=== PATIENT | female | born 1985 | race Caucasian/White ===

== ENCOUNTER 2021-03-05 10:06 | Outpatient (CLI) | payer MEDICAID, SELFPAY ==
[2021-03-05 10:24] VITALS: BP 124/73; PULSE 81; RESP 16; TEMP 37.1; O2SAT 99; BMI 34.3
[2021-03-05] MEDS: 0.9% Saline Lock 10 ML Syringe IV (10:26)
[2021-03-05 10:58] VITALS: BP 106/68; PULSE 67; RESP 16; TEMP 37.1; O2SAT 98
[2021-03-05 12:04] VITALS: BP 112/73; PULSE 71; RESP 16; TEMP 36.9; O2SAT 97
== END 2021-03-05 23:59 | disposition home or self-care (01) ==
LOC: MS3OUT 10:06 → MS3 10:07
PROVIDERS: PCP Family Medicine; Referring Provider Nurse Practitioner Adult Health; Visit Provider Nurse Practitioner Adult Health
DX: Z23 Encounter for immunization (principal); U07.1 COVID-19
CPT/HCPCS: J7050; M0245; Q0245; A4216

== ENCOUNTER 2021-10-27 20:52 | Outpatient (RCR) | payer OTHER, MEDICAID, SELFPAY | END 2021-11-11 23:59 | LOC: LABSPEC 20:52 | PROVIDERS: PCP Family Medicine; Visit Provider Family Medicine Geriatric Medicine | DX: Z20.822 Contact with and (suspected) exposure to COVID-19 (principal) | CPT/HCPCS: 87811 ==

== ENCOUNTER → 2021-12-13 | Outpatient (CLI) | payer OTHER, SELFPAY ==
[2021-12-13 08:47] LABS: Vitamin D,25 Hydroxy 21.3 ng/mL
[2021-12-13 09:21] LABS: ALB/GLOB Ratio 1.1 RATIO (0.9-2.4); AST(SGOT) 10 U/L (15-37); Alanine Aminotransfer ALT/SGPT 22 U/L (13-56); Albumin, Serum 3.6 g/dL (3.2-5.0); Alkaline Phosphatase 29 U/L (45-117); Anion Gap 4 (5-15); BUN 11 mg/dL (7-18); BUN/Creat Ratio 19.5 RATIO (10-20); Calcium,Total 8.7 mg/dL (8.5-10.1); Chloride 105 mmol/L (98-107); Cholesterol 226 mg/dL (200); Creatinine, Serum 0.56 mg/dL (0.55-1.02); EST Glomerular Filtration Rate 129 mL/min (>60); Est Glom Filt Rate - Afr Amer 156 mL/min (>60); Globulin 3.3 g/dL (2.2-4.2); Glucose 89 mg/dL (74-106); High Density Lipoprotein 49 mg/dL; Potassium 4.7 mmol/L (3.5-5.1); Protein, Total 6.9 g/dL (6.4-8.2); Sodium Level 137 mmol/L (136-145); Thyroid Stim Hormone (TSH) 5.78 uIU/mL (0.358-3.74); Triglycerides 194 mg/dL; Very Low Density Lipoprotein 39 mg/dL (5-40)
== END | disposition home or self-care (01) ==
PROVIDERS: PCP Nurse Practitioner Family; Referring Provider Nurse Practitioner Family; Visit Provider Nurse Practitioner Family
DX: Z00.00 Encounter for general adult medical examination without abnormal findings (principal); Z13.1 Encounter for screening for diabetes mellitus; Z13.6 Encounter for screening for cardiovascular disorders; E04.9 Nontoxic goiter, unspecified; E55.9 Vitamin D deficiency, unspecified
CPT/HCPCS: 36415; 80053; 80061; 82306; 84443

== ENCOUNTER → 2022-12-11 | Outpatient (CLI) | payer OTHER, SELFPAY ==
[2022-12-11 08:52] LABS: Thyroid Stim Hormone (TSH) 1.47 uIU/mL (0.358-3.74)
[2022-12-11 10:19] LABS: Vitamin D,25 Hydroxy 32.8 ng/mL
[2022-12-12 08:15] LABS: T4 Free Direct 0.94 ng/dL (0.76-1.46)
== END | disposition home or self-care (01) ==
LOC: OLS.ABSOLU 07:36 → LAB 07:39
PROVIDERS: PCP Nurse Practitioner Family; Visit Provider Nurse Practitioner Family
DX: Z00.00 Encounter for general adult medical examination without abnormal findings (principal); Z13.1 Encounter for screening for diabetes mellitus; Z13.6 Encounter for screening for cardiovascular disorders; E03.9 Hypothyroidism, unspecified; E55.9 Vitamin D deficiency, unspecified
CPT/HCPCS: 36415; 82306; 84436; 84439; 84443

== ENCOUNTER → 2023-02-20 | Outpatient (CLI) | payer OTHER, SELFPAY ==
--- NOTE | 2023-02-20 09:00 | BI_ITS ---
MAMMOGRAPHY - BILATERAL DIAGNOSTIC REASON FOR EXAM: Female, 37 years old. 3 month history of the palpable lump in the upper outer aspect of the left breast. PERTINENT HISTORY: Grandmother with breast cancer. TECHNIQUE: Digital bilateral breast ramón (3D mammographic acquisition) in the CC and MLO projections. 2-D mediolateral oblique (MLO) and craniocaudad (CC) views of both breasts were obtained. CAD: Full Field Digital Mammography with Computer Added Detection was performed. COMPARISON: None. Baseline examination. FINDINGS: Breast Composition: There are scattered areas of fibroglandular density. There are no dominant masses or suspicious calcifications. No other significant abnormalities are identified. BI/DIAG MAMM W/CAD, BILAT IMPRESSION: Negative diagnostic mammogram. With the patient''s history of a palpable lump in the upper outer quadrant of the left breast, correlation with targeted ultrasound examination is recommended. ASSESSMENT CATEGORY: BIRADS Category 0: Incomplete. Need additional imaging evaluation. A letter regarding these results will be sent to the patient by the facility within 30 days. Approximately 10% of breast cancers are not detected by mammography. A normal mammogram should not delay biopsy of a clinically suspicious abnormality. Electronically Signed: Tyson Marquis MD at 10:55 EST ,
--- NOTE | 2023-02-20 09:00 | US_ITS ---
STUDY: ULTRASOUND BREAST - LEFT REASON FOR EXAM: Female, 37 years old. Palpable lump left breast. TECHNIQUE: Axial and longitudinal images of the LEFT breast were performed with a high resolution ultrasound transducer. # OF IMAGES: 15 COMPARISON: Comparison is made with prior mammogram done earlier in the day. FINDINGS: LEFT Breast: The upper-outer quadrant of the left breast was examined with ultrasound. No sonographic abnormality is seen. US/Breast Limited Unilateral IMPRESSION: No sonographic abnormality is seen. ASSESSMENT CATEGORY: BIRADS Category 1: Negative. A letter regarding these results will be sent to the patient by the facility within 30 days. Electronically Signed: Tyson Marquis MD at 12:13 EST ,
== END | disposition home or self-care (01) ==
LOC: OPBI 08:58
PROVIDERS: PCP Nurse Practitioner Family; Referring Provider Nurse Practitioner Family; Visit Provider Nurse Practitioner Family
DX: N63.21 Unspecified lump in the left breast, upper outer quadrant (principal)
CPT/HCPCS: 76642; 77062; 77066; G0279

== ENCOUNTER 2023-03-30 17:42 | Inpatient (IN) | payer OTHER, SELFPAY ==
[2023-03-30 17:42] VITALS: BP 129/109; PULSE 122; RESP 20; TEMP 36.6; O2SAT 98; BMI 37.0
[2023-03-30 18:23] LABS: Absolute Lymphocyte Count 4.02 X10^3/uL (0.83-4.51); Absolute Neutrophil Count 7.4 X10^3/uL (2.0-7.7); Basophil# 0.07 X10^3/uL; Basophil% 0.5 % (0-1); Eosinophil# 0.38 X10^3/uL; Eosinophils% 2.9 % (0-5); Hemoglobin 13.3 g/dL (12.0-15.0); Lymphocyte # 4.02 X10^3/ul (0.83-4.51); Lymphocyte % 30.5 % (19-41); Mean Corp Hgb Conc 33.3 g/dL (32-36); Mean Corpuscular Volume 87.3 fL (81-99); Mean Platelet Vol. 8.8 fl (6.2-12.0); Monocyte# 1.17 X10^3/uL; Monocyte% 8.9 % (0-10); NRBC Flagged by Analyzer 0 % (0-5); Neutrophil # 7.44 X10^3/uL (2.7-7.7); Neutrophil % 56.5 % (47-70); Platelet Count 410 K/mm3 (150-450); RBC Distribution Width SD 41.2 fl (35.1-43.9); Red Blood Count 4.58 M/mm3 (4.2-5.4); White Blood Count 13.2 K/mm3 (4.4-11.0)
--- NOTE | 2023-03-30 18:35 | EDS_ITS ---
HPI History of Present Illness Chief Complaint: Abd Pain PFSH PFS Home Medications dextroamphetamine-amphetamine ER 15 mg 24hr capsule,extend release 15 mg PO BID 03/05/21 [History Last Taken Unknown] levothyroxine 25 mcg tablet 25 mcg PO DAILY 03/30/23 [History Last Taken Unknown] Allergy/AdvReac Type Severity Reaction Status Date / Time Penicillins Allergy Severe Rash Verified 03/02/21 11:33 Social History Smoking Status: Former smoker EXAM Physical Exam Const Vital Signs: 03/30/23 17:42 Temperature 97.9 F Temperature Source Temporal Pulse Rate 122 H Respiratory Rate 20 H Blood Pressure 129/109 H Blood Pressure Mean 115 Pulse Ox 98 Oxygen Delivery Method Room Air MDM MDM MDM Narrative Medical decision making narrative: HISTORY OF PRESENT ILLNESS: 37-year-old female here with mid abdominal pain for 3 hours and nausea. She states she developed acute onset of mid abdominal pain approximately hours prior to arrival. Notes nonbloody nonbilious vomitus. Notes history of cholecystectomy. Last bowel movement yesterday. Denies fever chest pain or shortness of breath. Denies any urinary complaints. REVIEW OF SYSTEMS: Pertinent positives: Abdominal pain, nausea Pertinent negatives: Urinary complaints, diarrhea PHYSICAL EXAM: Nursing triage notes reviewed, Vital signs reviewed Constitutional: please see mdm HENT: MMM Eyes: Pupils equal round and reactive to light, Extraocular muscles intact Neck: No stridor, no JVD, full neck ROM Lungs: Clear to auscultation, No wheezing or rales. No increased work of breathing, no conversational dyspnea, no accessory muscle use, no nasal flaring. No respiratory distress noted Heart: Regular rate and rhythm, No murmurs, No rubs and No gallops, 2+ distal pulses (radial, femoral, posterior tibial) in all extremities Abdomen: Distended, diffuse TTP, negative Rodriguez sign, no right lower quadrant tenderness, no pain at McBurney's point, negative psoas sign, no rigidity, rebound or guarding, no obvious peritoneal signs, no palpable pulsatile abdominal masses, no auscultated abdominal bruit : No CVAT Extremities: No edema Neuro: No focal neurological deficits, cranial nerves II through XII intact, 5/5 strength in all extremities. Intact sensation to light touch in all extremities, 2+ reflexes bilateral patella tendons. Normal gait. No ataxia. Skin: No rash or lesions noted MEDICAL DECISION MAKING: Chief Complaint: Abdominal pain External records reviewed: No recent advanced imaging of the abdomen pelvis Factors affecting care: none Social determinants of health: none History obtained from others: The patient's Consults: Gastroenterology (Dr. Pickens), internal medicine (Dr. Anderson) MDM Narrative: Patient was initially tachycardic, tachypneic, afebrile. Abdomen was distended but was not peritonitic. I considered the following differential diagnosis: AAA, small bowel obstruction, abdominal perforation, appendicitis, pancreatitis, hepatobiliary pathology , mesenteric ischemia, pathology (ie nephrolithiasis, pyelonephritis). I treated the patient 1 L normal saline, 4 mg IV morphine and 4 mg of IV Zofran. ALL IMAGES (IF OBTAINED) HAVE BEEN PERSONALLY REVIEWED AND INTERPRETED BY MYSELF. CBC with leukocytosis suggestive of systemic inflammation, no anemia or thrombocytopenia noted BMP without significant metabolic acidosis, anion gap, electrolyte disturbance or ESTEFANY LFTs with signs of hepatobiliary obstruction with elevated AST, ALT Lipase elevated consistent with acute pancreatitis Urine test is negative Urinalysis shows no evidence of urinary inflammation suggestive of UTI CT scan abdomen pelvis shows evidence of a choledochocele The synthesis of the patient's history, physical exam, labs images suggest choledochocele causing biliary and pancreatic obstruction. I consulted gastroenterology for further evaluation recommendations. Dr. Pickens recommended IV antibiotics admission to medicine for potential intervention with MRCP on urgent basis. Discussed case with hospitalist. The patient and/or family, caregivers express understanding. The patient and/or family, caregivers agrees with the plan. Shared decision making: I will have a discussion with the patient and or visitors regarding risk/benefits of further testing or admission. They will be made aware of of the risk/benefits inherent in this decision they will be given the opportunity to voice understanding. Total critical care time today provided was at least 0 [] minutes. This excludes separately billable procedures. Critical care time (if documented) is secondary to the patient having high probability of clinically significant/life threatening deterioration in the patient's condition which required my urgent intervention. Impression: 1. Choledochocele 2. Acute pancreatitis 3. Other liver enzymes 4. Leukocytosis 5. History of cholecystectomy Dispo: Admit to medicine This note was generated with [employer] dictation software. It may contain incorrect words, spelling, and punctuation that were not noted in review of the chart prior to signing. Lab Data Attestation: I reviewed the patient's lab results. Labs: Laboratory Results - last 24 hr 03/30/23 03/30/23 18:15 18:45 WBC 13.2 H RBC 4.58 Hgb 13.3 Hct 40.0 MCV 87.3 MCH 29.0 MCHC 33.3 RDW Std Deviation 41.2 RDW Coeff of Lydia 13.0 Plt Count 410 MPV 8.8 Immature Gran % (Auto) 0.700 Neut % (Auto) 56.5 Lymph % (Auto) 30.5 [place] % (Auto) 8.9 Eos % (Auto) 2.9 Baso % (Auto) 0.5 Absolute Neuts (auto) 7.4 Absolute Lymphs (auto) 4.02 Nucleated RBC % 0 Sodium 141 Potassium 4.1 Chloride 109 H Carbon Dioxide 25.0 Anion Gap 7 BUN 8 Creatinine 0.69 Estim Creat Clear Calc 126.87 Est GFR (MDRD) Af Amer 123 Est GFR (MDRD) Non-Af 102 BUN/Creatinine Ratio 11.7 Glucose 121 H Calcium 9.9 Total Bilirubin 0.40 AST 340 H ALT 439 H Alkaline Phosphatase 117 Total Protein 8.5 H Albumin 4.0 Globulin 4.5 H Albumin/Globulin Ratio 0.9 Lipase 1405 H Serum , Qual NEGATIVE Urine Color Yellow Urine Clarity Clear Urine pH 7.0 Ur Specific [place] 1.005 Urine Protein Negative Urine Glucose (UA) Normal Urine Ketones Negative Urine Occult Blood 150 H Urine Nitrite Negative Urine Bilirubin Negative Urine Urobilinogen Normal Ur Leukocyte Esterase Negative Urine RBC 0-5 SEEN Urine WBC 0 SEEN Ur Squamous Epith Cells 0 SEEN Urine Bacteria 0 SEEN Urine Mucus 0 SEEN Radiography Diagnostic Testing: Clinical Impression(s) from Imaging Studies Abdomen/Pelvis CT 03/30/23 18:47 IMPRESSION: 1. Prominent biliary ductal dilatation status post cholecystectomy which is out of portion to what is expected. Question choledochocele or other protruding lesion extending into the lumen of the second portion of the the duodenum. Correlate with LFTs and consider MRCP/ERCP as clinically indicated. 2. No acute or inflammatory disease or bowel obstruction. 3. Ancillary findings as above. Electronically Signed: Jerardo Mackey MD at 20:07 EST , Discharge Plan Dx/Rx/DC Orders Clinical Impression: Choledochocele Disposition Disposition: Acute Care Hospital [facility]
[2023-03-30 18:36] LABS: Internal QC Validated? YES +Cl - CLEAR BKGD; Pregnancy, Serum, hCG Quali. NEGATIVE Negative
[2023-03-30 18:41] LABS: ALB/GLOB Ratio 0.9 RATIO (0.9-2.4); AST(SGOT) 340 U/L (15-37); Alanine Aminotransfer ALT/SGPT 439 U/L (13-56); Alkaline Phosphatase 117 U/L (45-117); Anion Gap 7 (5-15); BUN 8 mg/dL (7-18); BUN/Creat Ratio 11.7 RATIO (10-20); Calcium,Total 9.9 mg/dL (8.5-10.1); Chloride 109 mmol/L (98-107); Creatinine, Serum 0.69 mg/dL (0.55-1.02); EST Glomerular Filtration Rate 102 mL/min (>60); Est Glom Filt Rate - Afr Amer 123 mL/min (>60); Estimated Creatinine Clearance 126.87 ml/min; Globulin 4.5 g/dL (2.2-4.2); Glucose 121 mg/dL (74-106); Potassium 4.1 mmol/L (3.5-5.1); Protein, Total 8.5 g/dL (6.4-8.2); Sodium Level 141 mmol/L (136-145)
--- NOTE | 2023-03-30 18:47 | CT_ITS ---
EXAM: CT ABDOMEN AND PELVIS WITH INTRAVENOUS CONTRAST CLINICAL INDICATION: abdominal pain, acute, non-localized TECHNIQUE: Helically acquired images were obtained of the abdomen and pelvis with intravenous contrast. CTDIvol = ( 16.98 ) mGy, DLP = ( 1278.99 ) mGycm This CT exam was performed using one or more of the following dose reduction techniques: automated exposure control, adjustment of the mA and/or kV according to patient size, and/or use of iterative reconstruction technique. CONTRAST: IV 100mL Isovue-370 COMPARISON: No relevant prior studies available. FINDINGS: LOWER THORAX: Lung bases are clear. No cardiomegaly. No significant pericardial effusion. ABDOMEN: LIVER: Unremarkable. Homogeneous. No focal mass. GALLBLADDER AND BILE DUCTS: Prominent biliary ductal dilatation status post cholecystectomy which is out of portion to what is expected. Question choledochocele or other protruding lesion extending into the lumen of the second portion of duodenum. PANCREAS: Unremarkable. No focal cystic or solid mass. SPLEEN: Unremarkable. Normal size without focal cystic or solid mass. ADRENALS: Unremarkable. No nodules. KIDNEYS AND URETERS: Unremarkable. Normal renal size and position. No hydronephrosis. STOMACH AND BOWEL: Unremarkable. No focal inflammatory change. No inflammatory or obstructive changes of bowel. PELVIS: APPENDIX: No evidence of acute appendicitis. BLADDER: Unremarkable. REPRODUCTIVE: Unremarkable as visualized. No adnexal masses. ABDOMEN and PELVIS: INTRAPERITONEAL SPACE: Unremarkable. No free air or free fluid. BONES/JOINTS: Status post ORIF of a left hemipelvic fracture, remote without hardware complications. Old healed fracture involving the left ischial tuberosity and inferior pubic ramus and the right inferior pubic ramus. No suspicious lytic or blastic abnormality. SOFT TISSUES: Unremarkable. No discrete abdominal or pelvic wall hernia. VASCULATURE: Unremarkable. Abdominal aorta is non-dilated. LYMPH NODES: Unremarkable. No enlarged lymph nodes. CT/Abdomen/Pelvis W IV Cont ONLY IMPRESSION: 1. Prominent biliary ductal dilatation status post cholecystectomy which is out of portion to what is expected. Question choledochocele or other protruding lesion extending into the lumen of the second portion of the the duodenum. Correlate with LFTs and consider MRCP/ERCP as clinically indicated. 2. No acute or inflammatory disease or bowel obstruction. 3. Ancillary findings as above. Electronically Signed: Jerardo Mackey MD at 20:07 EST ,
[2023-03-30] MEDS: Morphine 4 MG/ML Syringe IV (18:53)
[2023-03-30] MEDS: Ondansetron 4 MG/2 ML Vial IV (18:53)
[2023-03-30] MEDS: 0.9% Normal Saline (1000mL) 1,000 ML 999 ML IV (18:53)
[2023-03-30 18:57] LABS: Bacteria 0 SEEN /hpf (None Seen); Mucous, Urine 0 SEEN /hpf (<or=2+); Squamous Epithelial Cells - UA 0 SEEN /hpf (5-10); White Blood Cells 0 SEEN /hpf (0-5)
[2023-03-30 19:01] LABS: Color, Urine Yellow (Yellow); Glucose, Dipstick Normal (Normal); Ketone-Dipstick Negative (Negative); Leukocyte Esterase-Dipstick Negative /ul (Negative); Nitrite-Dipstick Negative (Negative); Occult Blood-Urine 150 /ul (Negative); Protein-Dipstick Negative (Negative); Specific Gravity, Urine 1.005 (1.002-1.030); Urine Bilirubin Dipstick Negative (Negative); Urine Clarity Clear (Clear); Urine Urobilinogen Normal (Normal)
--- OUTSIDE RECORDS SUMMARY | 2023-03-30 19:15 | XMS RPT_ITS | CCD ---
Author Name Unknown Address [address] [place] [address] Organization [facility] Care Team Providers Care Temp Recruiter Name Role Phone NELIDA WEI Unavailable Unavailable MATTI CESPEDES (MANUFACTURING MILLWRIGHT) Unavailable Fiorva crystal TOMLIN APRN - MANUFACTURING MILLWRIGHTSHARAN [facility] COTTRELLN-MANUFACTURING MILLWRIGHTKAMILAH Attending Jada TOMLIN SOLAR PROJECT ENGINEER - MANUFACTURING MILLWRIGHT, SHARAN Howard Primary Care U navailable Allergies Allergy Classification Reported Allergen(s) Allergy Type Date of Onset Reaction(s) Facility (1 source) Penicillins; Translations: [PENICILLINS] Propensity to adverse reactions to drug (disorder) 1 [facility] Repository (1 source) Penicillin; Translations: [penicillins] Drug Allergy Eruption of skin (disorder) [facility] Medications Current Medications Medication Drug Class(es) Dates Sig (Normalized) Sig (Original) cholecalciferol 1.25 mg oral capsule (1 source) Vitamin D Start: 10-09-2022 End: 04-07-2023 cholecalciferol 1250 mcg (50,000 intl units) oral capsule Dose : 50,000 International_Unit = 1 cap(s), Oral, qmonth, # 4 cap(s), 1 Refill(s), Pharmacy: [facility], Vitamin D deficiency, 162, cm, 10/09/22 7:59:00 EDT, Height, kg, 10/09/22 7:59:00 EDT, Dosing Weight Start Date: 10/09/22 Stop Date: 04/07/23 Status: Ordered escitalopram 10 mg oral tablet (1 source) Serotonin Reuptake Inhibitor Start: 01-08-2023 End: 04-08-2023 Lexapro 10 mg oral tablet Dose : 10 mg = 1 tab(s), Oral, qDay, may change to generic, # 90 tab(s), 0 Refill(s), Pharmacy: [facility], RAMONITA (generalized anxiety disorder), 163.5, cm, 01/08/23 8:45:00 EST, Height, kg, 01/08/23 8:45:00 EST, Dosing Weight Start Date: 01/08/23 Stop Date: 04/08/23 Status: Ordered levothyroxine sodium 0.025 mg oral tablet (1 source) l-Thyroxine Start: 10-09-2022 End: 04-07-2023 levothyroxine 25 mcg (0.025 mg) oral tablet Dose : 25 mcg = 1 tab(s), Oral, qDay, # 90 tab(s), 1 Refill(s), Pharmacy: [facility], Hypothyroidism in adult, 162, cm, 10/09/22 7:59:00 EDT, Height, kg, 10/09/22 7:59:00 EDT, Dosing Weight Start Date: 10/09/22 Stop Date: 04/07/23 Status: Ordered loratadine 10 mg oral tablet (1 source) Start: 09-19-2018 loratadine 10 mg oral tablet Dose : 10 mg = 1 tab(s), Oral, Every other day, # 15 tab(s), 0 Refill(s) Start Date: 09/19/18 Status: Ordered melatonin 10 mg oral capsule (1 source) Start: 12-16-2018 melatonin 10 mg oral capsule Dose : 10 mg = 1 cap(s), Oral, qHS, PRN for insomnia, # 90 cap(s), 0 Refill(s) Start Date: 12/16/18 Status: Ordered triamcinolone acetonide 0.055 mg/actuat metered dose nasal spray (1 source) Corticosteroid Start: 09-19-2018 take 1 dose nasal route once daily Nasacort Allergy 24HR 55 mcg/inh nasal spray Dose = 1 spray(s), Nostril, each, qDay, # 16.9 mL, 0 Refill(s) Start Date: 09/19/18 Status: Ordered Completed/Discontinued Medications Medication Drug Class(es) Dates Sig (Normalized) Sig (Original) 24 hr amphetamine aspartate 3.75 mg / amphetamine sulfate 3.75 mg / dextroamphetamine saccharate 3.75 mg / dextroamphetamine sulfate 3.75 mg extended release oral capsule (3 sources) Central Nervous System Stimulant Start: 01-08-2023 End: 02-07-2023 Adderall XR 15 mg oral capsule, extended release Dose : 15 mg = 1 cap(s), Oral, BID, Fill Date: 01/21/2023 May change to generic, # 60 cap(s), 0 Refill(s), Pharmacy: [facility] ADD (attention deficit disorder), 163.5, cm, 01/08/23 8:45:00 EST, Height, 96.2, kg, 01/08/23 8:45:00 EST, Dosing Weight Start Date: 01/08/23 Stop Date: 02/07/23 Status: Ordered Problems Active Problems Problem Classification Problem Date Documented Da te Episodic/Chronic Anxiety disorders (1 source) Generalized anxiety disorder 12-09-2020 Chronic Attention-deficit, conduct, and disruptive behavior disorders (1 source) Adult attention deficit hyperactivity disorder 09-16-2018 Chronic Immunizations and screening for infectious disease (2 sources) Encounter for screening for human papillomavirus (HPV); Translations: [Encounter for screening for human papillomavirus (HPV)] Onset: 02-08-2023 Episodic Nutritional deficiencies (1 source) Vitamin D deficiency 11-28-2021 Chronic Other gastrointestinal disorders (1 source) Chronic constipation 12-07-2022 Episodic Residual codes; unclassified (1 source) Increased body mass index 03-09-2020 Episodic Residual codes; unclassified (1 source) Tobacco user 09-16-2018 Episodic Spondylosis; intervertebral disc disorders; other back problems (1 source) Low back pain; Translations: [Low back pain] Onset: 11-14-2017 Episodic Thyroid disorders (2 sources) Goiter; Translations: [Hypothyroidism] 11-28-2021 Chronic Unclassified (1 source) Unknown / UNK(Unknown) Onset: 07-17-2017 Unclassified (1 source) Cancer cervix screening status 11-29-2021 Unclassified (1 source) Drug therapy finding 01-08-2023 Past or Other Problems Problem Classification Problem Date Documented Da te Episodic/Chronic Unclassified (1 source) [facility]ISTR[facility] SCREENING Onset: 07-17-2017 Results Test Name Value Interpretation Reference Range Facil ity Encounters Encounter Date Encounter Type Care Provider Facility Start: 02-08-2023 End: 02-13-2023 ambulatory KAMILAH TAVERAS SOLAR PROJECT ENGINEER-MANUFACTURING MILLWRIGHT Facility:[facility] Start: 02-08-2023 End: 02-12-2023 Outreach Lab KAMILAH TAVERAS SOLAR PROJECT ENGINEER-MANUFACTURING MILLWRIGHT [facility] Start: 11-14-2017 End: 11-15-2017 Patient encounter MATTI (MANUFACTURING MILLWRIGHT) [facility] Start: 07-17-2017 Ambulatory NELIDA Howard WEI Facility: [facility] Procedures Date Procedure Procedure Detail Performing Clinician Start: 02-13-2008 section KAMILAHMONI TAVERAS SOLAR PROJECT ENGINEER-MANUFACTURING MILLWRIGHT Cholecystectomy KAMILAHMONI BARCENAS Y SOLAR PROJECT ENGINEER-MANUFACTURING MILLWRIGHT Tonsillectomy KAMILAH TAVERAS SOLAR PROJECT ENGINEER-MANUFACTURING MILLWRIGHT Immunizations Immunization Date Immunization Notes Care Provider Fa cility 12-16-2021 influenza virus vaccine, unspecified formulation KAMILAH TAVERAS SOLAR PROJECT ENGINEER-MANUFACTURING MILLWRIGHT [facility] 01-13-2021 influenza, injectabl e, quadrivalent, contains preservative; Translations: [Fluarix PF Quadrivalent ] KAMILAH TAVERAS SOLAR PROJECT ENGINEER-MANUFACTURING MILLWRIGHT [facility] [place] 03-03-2020 SARS-CoV-2 mRNA (tozinameran) vaccine KAMILAH TAVERAS SOLAR PROJECT ENGINEER-MANUFACTURING MILLWRIGHT [facility] [place] Payers Date Payer Category Payer Unknown [id number] 1985 Unknown [id number] Self-pay Social History Date Type Detail Facility Start: 01-08-2023 Tobacco smoking status Ex-smoker (fi nding) [facility] [place] [facility] note LaboratoryRadiology Note Date & Type Note Facility Evaluation + Plan note Future Appointments Appointment Date:04/09/2023 08:20:00 AM Scheduled Provider:SHARAN TOMLIN APRN, CNP Location:[facility] Appointment Type:PC OV Controlled Medication Diagnostic Tests PendingHPV Screen, DNA Probe 02/08/23 Future Scheduled TestsThyroid Stimulating Hormone 01/09/23Free T4 01/09/23Complete Blood Count 01/09/23Lipid Profile 01/09/23Vitamin D Level 01/09/23Complete Metabolic Panel 01/09/23MA Mammo Diagnostic Bilateral w/[place] 02/08/23US Breast Left Complete 02/08/23 [facility] Hospital course Narrative Note Date & Type Note Facility Hospital course Narrative No data available for this section [facility] Hospital Discharge instructions Note Date & Type Note Facility Hospital Discharge instructions No data available for this section [facility] Progress note Note Date & Type Note Facility Progress note No data available for this section [facility] Summary Purpose Family History No Family History Records FoundNo Family History Records Found No data available for this section No Family History Records Found Advance Directives No Advanced Directives Records FoundNo Advanced Directives Records FoundNo Advanced Directives Records Found Additional Source Comments INFORMATION SOURCE (unrecogn ized section and content) DATE CREATED AUTHOR AUTHOR'S ORGANIZ ATION 12/13/2017 [facility] DATE CREATED AUTHOR AUTHOR'S ORGANIZ ATION 02/27/2023 [facility] ([place]) Patient Care team informatio n (unrecognized section and content) Care Team Personnel Name: SHARAN TOMLIN APRN, CNP Position: P4 Advanced Breast Splitter Member Role: Primary Care Physician Address: Address: [address] [place] [address]- [place] Care Team Related Persons Name: SAHRA ALVARADO FOR RECORDS PERTAINING TO PATIENTS WHO ARE OR HAVE BEEN ENROLLED IN A CHEMICAL DEPENDENCY/SUBSTANCEABUSE PROGRAM, SOME INFORMATION MAY BE OMITTED. This clinical summary was aggregated from multiple sources. Caution should be exercised in using it in the provision of clinical care. This summary normalizes information from multiple sources, and as a consequence, information in this document may materially change the coding, format and clinical context of patient data. In addition, data may be omitted in some cases. CLINICAL DECISIONS SHOULD BE BASED ON THE PRIMARY CLINICAL RECORDS. [facility]. provides no warranty or guarantee of the accuracy or completeness of information in this document.
[2023-03-30 19:18] LABS: Lipase 1405 U/L (13-75)
[2023-03-30 19:23] LABS: Red Blood Cells-Urine 0-5 SEEN /hpf (0-5)
--- NOTE | 2023-03-30 20:42 | HP.PCM.HOS_ITS ---
HPI - General General Date of Admission: 03/30/23 Date of Service: 03/30/23 Chief Complaint: Abdominal pain HPI Narrative YENNI ALVARADO, is a 37 F with a past medical history of obesity; BMI 37.1 this admission, hypothyroidism, history of tobacco abuse, history of cholecystectomy, adult ADD, listed allergy to penicillin and history of COVID-19 who presents to [facility] ER complaining of abdominal pain. Ms. Alvarado reports her symptoms began approximately 3 hours prior to arrival with the abrupt onset of nausea and abdominal pain that was [id number], cramping, generalized and intermittent with nothing seeming to make the pain better but palpation of the area makes it worse. CT scan in the ER revealed ch oledochocele with an elevated lipase of 1,405 units/L along with an elevated AST of 340 and ALT of 439 with a GI physician voice data communications engineer/Dr. Pickens recommending IV antibiotics and admission for potential intervention with ERCP in the a.m. She denies related fever, chills, diarrhea or constipation but she does admit to abdominal distention in addition to abdominal pain that is focused mainly in the epigastrium and upper Right abdomen. She was then admitted to the general medical floor for ongoing care for stay that is expected to be greater than 48 hours. [facility] Home Medications dextroamphetamine-amphetamine ER 15 mg 24hr capsule,extend release 15 mg PO BID 03/05/21 [History Last Taken Unknown] levothyroxine 25 mcg tablet 25 mcg PO DAILY 03/30/23 [History Last Taken Unknown] Allergy/AdvReac Type Severity Reaction Status Date / Time Penicillins Allergy Severe Rash Verified 03/02/21 11:33 Social History Smoking Status: Former smoker ROS ROS Narrative Review of systems: General: Patient denies fever or chills HENT: Denies headache, denies stuffy nose, denies sore throat EYES: Denies changes in vision Resp: Denies cough, denies shortness of breath Cardiac: Denies chest pain or palpitations GI: Patient admits to abdominal pain with nausea as per HPI : Denies changes in urination Extremity: Denies swelling Musculoskeletal: Feels somewhat generally weak and unwell Neuro: Denies any numbness/tingling Heme: Denies any bleeding or bruising Skin: Denies rashes Psychiatric: No complaints voiced related to uncontrolled depression or anxiety Endocrine: No polyuria, polydipsia or polyphagia The rest of the 14 point ROS was negative except for positives in HPI. Vital Signs Vital Signs Vital Signs: 03/30/23 17:42 Temperature 97.9 F Temperature Source Temporal Pulse Rate 122 H Respiratory Rate 20 H Blood Pressure 129/109 H Blood Pressure Mean 115 Pulse Ox 98 Oxygen Delivery Method Room Air Weight Weight: 215 lb 14.4 oz Body Mass Index (BMI) 37.0 Physical Exam Const alert and oriented x3 Constitutional Narrative: Patient is obese and appears to be in significant discomfort. General Appearance: cooperative HEENT normocephalic, head/scalp atraumatic, hearing grossly normal bilaterally and moist oral mucous membranes Eyes PERRL, EOMs intact bilaterally and conjunctivae normal Neck no lymphadenopathy and supple Resp normal respiratory effort, no retractions, no use of accessory muscles and clear to auscultation bilaterally Cardio regular rate and regular rhythm GI GI Narrative: Abdomen moderately distended with generalized tenderness to palpation with negative Rodriguez sign, no right lower quadrant tenderness and no pain at Chapincito's point. No obvious peritoneal signs. Extremity normal to inspection, full ROM and no clubbing, cyanosis or edema Skin Skin Narrative: Patient has no evidence of rash at this time. Neuro oriented x3, CN's II-XII intact bilaterally, moves all extremities and no focal motor deficits Sensorium / Orientation: awake, alert, oriented to person, oriented to place and oriented to time Speech: speech normal Motor Exam: strength 5/5 throughout Psych affect normal Results Medical Records Data Attestation: I reviewed the patient's medical records Lab / Micro Data Attestation: I reviewed the patient's lab results. 03/30/23 18:15 03/30/23 18:15 Labs: Laboratory Results - last 24 hr 03/30/23 18:15: WBC 13.2 H, RBC 4.58, Hgb 13.3, Hct 40.0, MCV 87.3, MCH 29.0, MCHC 33.3, RDW Std Deviation 41.2, RDW Coeff of Lydia 13.0, Plt Count 410, MPV 8.8, Immature Gran % (Auto) 0.700, Neut % (Auto) 56.5, Lymph % (Auto) 30.5, [place] % (Auto) 8.9, Eos % (Auto) 2.9, Baso % (Auto) 0.5, Absolute Neuts (auto) 7.4, Absolute Lymphs (auto) 4.02, Nucleated RBC % 0, Sodium 141, Potassium 4.1, Chloride 109 H, Carbon Dioxide 25.0, Anion Gap 7, BUN 8, Creatinine 0.69, Estim Creat Clear Calc 126.87, Est GFR (MDRD) Af Amer 123, Est GFR (MDRD) Non-Af 102, BUN/Creatinine Ratio 11.7, Glucose 121 H, Calcium 9.9, Total Bilirubin 0.40, AST 340 H, ALT 439 H, Alkaline Phosphatase 117, Total Protein 8.5 H, Albumin 4.0, Globulin 4.5 H, Albumin/Globulin Ratio 0.9, Lipase 1405 H, Serum , Qual NEGATIVE 03/30/23 18:45: Urine Color Yellow, Urine Clarity Clear, Urine pH 7.0, Ur Specific [place] 1.005, Urine Protein Negative, Urine Glucose (UA) Normal, Urine Ketones Negative, Urine Occult Blood 150 H, Urine Nitrite Negative, Urine Bilirubin Negative, Urine Urobilinogen Normal, Ur Leukocyte Esterase Negative, Urine RBC 0-5 SEEN, Urine WBC 0 SEEN, Ur Squamous Epith Cells 0 SEEN, Urine Bacteria 0 SEEN, Urine Mucus 0 SEEN Imaging Radiology Impression Abdomen/Pelvis CT 03/30/23 18:47 IMPRESSION: 1. Prominent biliary ductal dilatation status post cholecystectomy which is out of portion to what is expected. Question choledochocele or other protruding lesion extending into the lumen of the second portion of the the duodenum. Correlate with LFTs and consider MRCP/ERCP as clinically indicated. 2. No acute or inflammatory disease or bowel obstruction. 3. Ancillary findings as above. Electronically Signed: Jerardo Mackey MD at 20:07 EST , Assessment & Plan Assessment/Plan (1) Choledochocele: (2) Acute pancreatitis: QUALIFIERS: Acute pancreatitis complication: unspecified Pancreatitis type: unspecified pancreatitis type Qualified Code(s): K85.90 - Acute pancreatitis without necrosis or infection, unspecified PLAN: Plan 1. 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 Keep strict n.p.o. and start IV Protonix. Also continue IV cefepime begun in the ER to prevent any potential evolving infection. Give low-dose Tylenol as needed for mild to moderate (level 1-5 out of 10) pain or fever. Give morphine IV as needed for level 6-10 out of 10 pain. Check MRCP as per specialist recommendations. Finally, we will consul t Dr. Pickens of gastroenterology to see this patient on rounds in the a.m. for further recommendations regarding ERCP with help appreciated in advance. 2. History of cholecystectomy - Noted. 3. Obesity; BMI 37.1 this admission - Weight loss will be recommended. 4. Hypothyroidism - Continue Synthroid and check TSH. 5. History of tobacco abuse - Tobacco cessation will be strongly encouraged with nicotine patch offered to control cravings. 6. Adult ADD - Restart current treatment after ERCP. 7. Listed allergy to penicillin - Noted. 8. History of COVID-19 - Noted. 9. DVT prophylaxis - SCD's only with impending ERCP. Total time: Approximately 55 minutes. Charges/Coding Visit Charges Inpatient E&M: 81588 Init Hosp L2
[2023-03-30] MEDS: Cefepime HCl 2 GM in 0.9% Normal Saline (100mL MB+) 100 ML IV (20:58)
[2023-03-30] MEDS: HYDROmorphone 0.5 MG/0.5 ML SYRINGE IV (21:25)
[2023-03-30 21:30] VITALS: BP 136/77; PULSE 86; RESP 17; TEMP 37; O2SAT 100
--- OUTSIDE RECORDS SUMMARY | 2023-03-30 21:48 | XMS RPT_ITS | CCD ---
Author Name Unknown Address [address] [place] [address] Organization [facility] Care Team Providers Care Manager Shipping Name Role Phone NELIDA WEI Unavailable Unavailable MATTI CESPEDES (SUPERVISOR ASSEMBLY DEPARTMENT) Unavailable Fiorva crystal TOMLIN APRN - SUPERVISOR ASSEMBLY DEPARTMENTSHARAN [facility] NITIN COTTRELLN-SUPERVISOR ASSEMBLY DEPARTMENTKAMILAH Attending Jada TOMLIN MACHINE CLOTH EXAMINER - SUPERVISOR ASSEMBLY DEPARTMENT, SHARAN Howard Primary Care U navailable Allergies Allergy Classification Reported Allergen(s) Allergy Type Date of Onset Reaction(s) Facility (1 source) Penicillins; Translations: [PENICILLINS] Propensity to adverse reactions to drug (disorder) 1 [facility] Repository (1 source) Penicillin; Translations: [penicillins] Drug Allergy Eruption of skin (disorder) [facility] Medications Current Medications Medication Drug Class(es) Dates Sig (Normalized) Sig (Original) cholecalciferol 1.25 mg oral capsule (1 source) Vitamin D Start: 10-09-2022 End: 04-07-2023 cholecalciferol 1250 mcg (50,000 intl units) oral capsule Dose : 50,000 International_Unit = 1 cap(s), Oral, qmonth, # 4 cap(s), 1 Refill(s), Pharmacy: [facility], Vitamin D deficiency, 162, cm, 10/09/22 7:59:00 EDT, Height, kg, 10/09/22 7:59:00 EDT, Dosing Weight Start Date: 10/09/22 Stop Date: 04/07/23 Status: Ordered escitalopram 10 mg oral tablet (1 source) Serotonin Reuptake Inhibitor Start: 01-08-2023 End: 04-08-2023 Lexapro 10 mg oral tablet Dose : 10 mg = 1 tab(s), Oral, qDay, may change to generic, # 90 tab(s), 0 Refill(s), Pharmacy: [facility], RAMONITA (generalized anxiety disorder), 163.5, cm, 01/08/23 8:45:00 EST, Height, kg, 01/08/23 8:45:00 EST, Dosing Weight Start Date: 01/08/23 Stop Date: 04/08/23 Status: Ordered levothyroxine sodium 0.025 mg oral tablet (1 source) l-Thyroxine Start: 10-09-2022 End: 04-07-2023 levothyroxine 25 mcg (0.025 mg) oral tablet Dose : 25 mcg = 1 tab(s), Oral, qDay, # 90 tab(s), 1 Refill(s), Pharmacy: [facility], Hypothyroidism in adult, 162, cm, [...] generic, # 60 cap(s), 0 Refill(s), Pharmacy: [facility] ADD (attention deficit disorder), 163.5, cm, 01/08/23 [...] Da te Episodic/Chronic Unclassified (1 source) KSU PIANO TUNER SCREENING Onset: 07-17-2017 Results Test Name Value Interpretation Reference Range Facil ity Encounters Encounter Date Encounter Type Care Provider Facility Start: 02-08-2023 End: 02-13-2023 ambulatory KAMILAH TAVERAS MACHINE CLOTH EXAMINER-SUPERVISOR ASSEMBLY DEPARTMENT Facility:[facility] Start: 02-08-2023 End: 02-12-2023 Outreach Lab KAMILAH TAVERAS MACHINE CLOTH EXAMINER-SUPERVISOR ASSEMBLY DEPARTMENT [facility] Start: 11-14-2017 End: 11-15-2017 Patient encounter MATTI (SUPERVISOR ASSEMBLY DEPARTMENT) [facility] Start: 07-17-2017 Ambulatory NELIDA Howard WEI Facility: [facility] Procedures Date Procedure Procedure Detail Performing Clinician Start: 02-13-2008 section KAMILAHMONI TAVERAS MACHINE CLOTH EXAMINER-SUPERVISOR ASSEMBLY DEPARTMENT Cholecystectomy KAMILAHMONI BARCENAS Y MACHINE CLOTH EXAMINER-SUPERVISOR ASSEMBLY DEPARTMENT Tonsillectomy KAMILAH TAVERAS MACHINE CLOTH EXAMINER-SUPERVISOR ASSEMBLY DEPARTMENT Immunizations Immunization Date Immunization Notes Care Provider Fa cility 12-16-2021 influenza virus vaccine, unspecified formulation KAMILAH TAVERAS MACHINE CLOTH EXAMINER-SUPERVISOR ASSEMBLY DEPARTMENT [facility] 01-13-2021 influenza, injectabl e, quadrivalent, contains preservative; Translations: [Fluarix PF Quadrivalent ] KAMILAH TAVERAS MACHINE CLOTH EXAMINER-SUPERVISOR ASSEMBLY DEPARTMENT [facility] 03-03-2020 SARS-CoV-2 mRNA (tozinameran) vaccine KAMILAH TAVERAS MACHINE CLOTH EXAMINER-SUPERVISOR ASSEMBLY DEPARTMENT [facility] Payers Date Payer Category Payer Unknown [id number] 1985 Unknown [id number] Self-pay Social History Date Type Detail Facility Start: 01-08-2023 Tobacco smoking status Ex-smoker (fi nding) [facility] Evaluation + Plan note LaboratoryRadiology Note Date & Type Note Facility Evaluation + Plan note Future Appointments Appointment Date:04/09/2023 08:20:00 AM Scheduled Provider:SHARAN TOMLIN APRN, CNP Location:[facility] Appointment Type:PC OV Controlled Medication Diagnostic Tests PendingHPV Screen, DNA Probe 02/08/23 Future Scheduled TestsThyroid Stimulating Hormone 01/09/23Free T4 01/09/23Complete Blood Count 01/09/23Lipid Profile 01/09/23Vitamin D Level 01/09/23Complete Metabolic Panel 01/09/23MA Mammo Diagnostic Bilateral w/[place] 02/08/23US Breast Left Complete 02/08/23 [facility] Hospital course Narrative Note Date & Type Note Facility Hospital course Narrative No data available for this section [facility] Hospital Discharge instructions Note Date & Type Note Facility Hospital Discharge instructions No data available for this section [facility] Progress note Note Date & Type Note Facility Progress note No data available for this section [facility] Summary Purpose Family History No Family History Records FoundNo Family History Records Found No data available for this section No Family History Records Found Advance Directives No Advanced Directives Records FoundNo Advanced Directives Records FoundNo Advanced Directives Records Found Additional Source Comments INFORMATION SOURCE (unrecogn ized section and content) DATE CREATED AUTHOR AUTHOR'S ORGANIZ ATION 12/13/2017 [facility] DATE CREATED AUTHOR AUTHOR'S ORGANIZ ATION 02/27/2023 [facility] ([place]) Patient Care team informatio n (unrecognized section and content) Care Team Personnel Name: SHARAN TOMLIN APRN, CNP Position: P4 Advanced Sheet Metal Worker Supervisor Member Role: Primary Care Physician Address: Address: [address] [place] [address]- [place] Care Team Related Persons Name: SAHRA [...] BE BASED ON THE PRIMARY CLINICAL RECORDS. [facility] provides no warranty or guarantee of the accuracy or completeness of information in this document.
[2023-03-30] MEDS: Pantoprazole Sodium 40 MG in 0.9% Normal Saline (100mL MB+) 100 ML 330 MG IV (21:57)
[2023-03-30 23:21] VITALS: BMI 36.7
[2023-03-30 23:55] VITALS: BP 131/68; PULSE 72; RESP 18; TEMP 36.6; O2SAT 97
[2023-03-31] VITALS (9 sets, daily range): BP systolic 112–134; BP diastolic 65–101; PULSE 57–76; RESP 16–18; TEMP 36.7–36.9; O2SAT 97–99; BMI 36.7
[2023-03-31] MEDS: 0.9% Normal Saline (1000mL) 1,000 ML 125 ML IV ×3 (00:05→21:33)
[2023-03-31] MEDS: Morphine 2 MG/ML Syringe IV ×3 (00:06→21:37)
[2023-03-31] MEDS: 0.9% Saline Lock 10 ML Syringe IV ×3 (00:06→21:40)
--- NOTE | 2023-03-31 04:15 | MRI_ITS ---
STUDY: MRI ABDOMEN WITHOUT CONTRAST REASON FOR EXAM: Female, 37 years old. Acute pancreatitis with choledochocele TECHNIQUE: Standardized fat and water weighted pulse sequences were obtained in all 3 orthogonal planes. MRCP sequences with 3-D reconstructions performed. There is motion artifact degrading detail. COMPARISON: CT March 30, 2023. FINDINGS: The visualized lung bases are unremarkable. The visualized portions of the heart are within normal limits. Normal liver. There are surgical clips in the gallbladder fossa consistent with a prior cholecystectomy. The common bile duct measures 1.0 cm. There are multiple filling defects in the distal common bile duct suggesting stones measuring up to 0.8 cm. Normal spleen. Normal pancreas. Normal bilateral adrenal glands. Normal right kidney. Normal left kidney. Normal visualized stomach. Normal small intestine. Normal colon. There is non-visualization of the appendix. Normal abdominal aorta. Normal inferior vena cava. Normal retroperitoneum. Normal abdominal wall. Normal osseous structures. MRI/MRCP Abdomen without Contrast IMPRESSION: Status post cholecystectomy. Filling defects within the bile duct consistent with stones. Consider ultrasound and/or ERCP for confirmation. Electronically Signed: Jorge Armendariz MD at 12:34 EST ,
[2023-03-31] MEDS: Cefepime HCl 2 GM in 0.9% Normal Saline (100mL MB+) 100 ML IV ×3 (05:13→21:33)
[2023-03-31 06:11] LABS: Absolute Lymphocyte Count 2.91 X10^3/uL (0.83-4.51); Absolute Neutrophil Count 4.3 X10^3/uL (2.0-7.7); Basophil# 0.06 X10^3/uL; Basophil% 0.7 % (0-1); Eosinophil# 0.24 X10^3/uL; Eosinophils% 2.9 % (0-5); Hematocrit 37.5 % (37-47); Hemoglobin 12.1 g/dL (12.0-15.0); Lymphocyte # 2.91 X10^3/ul (0.83-4.51); Lymphocyte % 35.1 % (19-41); Mean Corp Hgb Conc 32.3 g/dL (32-36); Mean Corpuscular Hgb 28.3 pg (27.0-32.0); Mean Corpuscular Volume 87.6 fL (81-99); Mean Platelet Vol. 9.1 fl (6.2-12.0); Monocyte# 0.72 X10^3/uL; Monocyte% 8.7 % (0-10); NRBC Flagged by Analyzer 0 % (0-5); Neutrophil # 4.34 X10^3/uL (2.7-7.7); Neutrophil % 52.2 % (47-70); Platelet Count 377 K/mm3 (150-450); RBC Distribution Width CV 13.2 % (11.6-14.6); RBC Distribution Width SD 42.4 fl (35.1-43.9); Red Blood Count 4.28 M/mm3 (4.2-5.4); White Blood Count 8.3 K/mm3 (4.4-11.0)
[2023-03-31 07:01] LABS: Lipase 158 U/L (13-75)
[2023-03-31 07:06] LABS: ALB/GLOB Ratio 0.9 RATIO (0.9-2.4); AST(SGOT) 549 U/L (15-37); Alanine Aminotransfer ALT/SGPT 671 U/L (13-56); Albumin, Serum 3.2 g/dL (3.2-5.0); Alkaline Phosphatase 101 U/L (45-117); Anion Gap 3 (5-15); BUN 6 mg/dL (7-18); BUN/Creat Ratio 11.7 RATIO (10-20); Calcium,Total 8.4 mg/dL (8.5-10.1); Chloride 112 mmol/L (98-107); Creatinine, Serum 0.51 mg/dL (0.55-1.02); EST Glomerular Filtration Rate 142 mL/min (>60); Est Glom Filt Rate - Afr Amer 172 mL/min (>60); Estimated Creatinine Clearance 170.76 ml/min; Globulin 3.6 g/dL (2.2-4.2); Glucose 78 mg/dL (74-106); Magnesium 2.3 mg/dL (1.6-2.6); Phosphorus 3.8 mg/dL (2.5-4.9); Potassium 4.3 mmol/L (3.5-5.1); Protein, Total 6.8 g/dL (6.4-8.2); Sodium Level 140 mmol/L (136-145); Thyroid Stim Hormone (TSH) 9.58 uIU/mL (0.358-3.74)
[2023-03-31] MEDS: Ondansetron 4 MG/2 ML Vial IV (08:10)
--- NOTE | 2023-03-31 08:35 | PCM.PN.HOSP ---
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 Patient states that over the past 18 months, she has had intermittent abdominal pain in her upper quadrant that lasts for about 20 minutes and resolves on its own. This episode did not jason on its own and that is why she presented. She had her gallbladder removed roughly about 18 years ago. Objective Data Objective Data Vital Signs: Vital Signs Temp Pulse Resp BP Pulse Ox O2 Del Method 36.7 C 71 18 134/70 H 98 Room Air 03/31/23 05:00 03/31/23 05:00 03/31/23 05:00 03/31/23 05:00 03/31/23 05:00 03/31/23 05:00 Oxygen Delivery Method Room Air Weight: 97 kg Body Mass Index (BMI) 36.7 Intake & Output: Intake and Output for Last 24 Hours 03/29/23 03/30/23 03/31/23 23:59 23:59 23:59 Intake Total 1210 / 1210 100 / 100 Balance 1210 / 1210 100 / 100 Lab / Micro Data 03/31/23 04:12 03/31/23 04:12 Labs: Laboratory Results - last 24 hr 03/30/23 18:15: WBC 13.2 H, RBC 4.58, Hgb 13.3, Hct 40.0, MCV 87.3, MCH 29.0, MCHC 33.3, RDW Std Deviation 41.2, RDW Coeff of Lydia 13.0, Plt Count 410, MPV 8.8, Immature Gran % (Auto) 0.700, Neut % (Auto) 56.5, Lymph % (Auto) 30.5, [place] % (Auto) 8.9, Eos % (Auto) 2.9, Baso % (Auto) 0.5, Absolute Neuts (auto) 7.4, Absolute Lymphs (auto) 4.02, Nucleated RBC % 0, Sodium 141, Potassium 4.1, Chloride 109 H, Carbon Dioxide 25.0, Anion Gap 7, BUN 8, Creatinine 0.69, Estim Creat Clear Calc 126.87, Est GFR (MDRD) Af Amer 123, Est GFR (MDRD) Non-Af 102, BUN/Creatinine Ratio 11.7, Glucose 121 H, Calcium 9.9, Total Bilirubin 0.40, AST 340 H, ALT 439 H, Alkaline Phosphatase 117, Total Protein 8.5 H, Albumin 4.0, Globulin 4.5 H, Albumin/Globulin Ratio 0.9, Lipase 1405 H, Serum , Qual NEGATIVE 03/30/23 18:45: Urine Color Yellow, Urine Clarity Clear, Urine pH 7.0, Ur Specific [place] 1.005, Urine Protein Negative, Urine Glucose (UA) Normal, Urine Ketones Negative, Urine Occult Blood 150 H, Urine Nitrite Negative, Urine Bilirubin Negative, Urine Urobilinogen Normal, Ur Leukocyte Esterase Negative, Urine RBC 0-5 SEEN, Urine WBC 0 SEEN, Ur Squamous Epith Cells 0 SEEN, Urine Bacteria 0 SEEN, Urine Mucus 0 SEEN 03/31/23 04:12: WBC 8.3, RBC 4.28, Hgb 12.1, Hct 37.5, MCV 87.6, MCH 28.3, MCHC 32.3, RDW Std Deviation 42.4, RDW Coeff of Lydia 13.2, Plt Count 377, MPV 9.1, Immature Gran % (Auto) 0.400, Neut % (Auto) 52.2, Lymph % (Auto) 35.1, [place] % (Auto) 8.7, Eos % (Auto) 2.9, Baso % (Auto) 0.7, Absolute Neuts (auto) 4.3, Absolute Lymphs (auto) 2.91, Nucleated RBC % 0, Sodium 140, Potassium 4.3, Chloride 112 H, Carbon Dioxide 25.0, Anion Gap 3 L, BUN 6 L, Creatinine 0.51 L, Estim Creat Clear Calc 170.76, Est GFR (MDRD) Af Amer 172, Est GFR (MDRD) Non-Af 142, BUN/Creatinine Ratio 11.7, Glucose 78, Calcium 8.4 L, Phosphorus 3.8, Magnesium 2.3, Total Bilirubin 0.70, AST 549 H, ALT 671 H, Alkaline Phosphatase 101, Total Protein 6.8, Albumin 3.2, Globulin 3.6, Albumin/Globulin Ratio 0.9, Lipase 158 H, TSH 9.58 H Radiography Diagnostic Testing: Radiology Impression Abdomen/Pelvis CT 03/30/23 18:47 IMPRESSION: 1. Prominent biliary ductal dilatation status post cholecystectomy which is out of portion to what is expected. Question choledochocele or other protruding lesion extending into the lumen of the second portion of the the duodenum. Correlate with LFTs and consider MRCP/ERCP as clinically indicated. 2. No acute or inflammatory disease or bowel obstruction. 3. Ancillary findings as above. Electronically Signed: Jerardo Mackey MD at 20:07 EST , Physical Exam Const alert and no apparent distress HEENT head/scalp atraumatic and moist oral mucous membranes Neck no lymphadenopathy Resp normal respiratory effort and no retractions GI GI Narrative: Soft. Nondistended. Tender right upper quadrant. Assessment & Plan Assessment/Plan (1) Choledochocele: (2) Acute pancreatitis: QUALIFIERS: Acute pancreatitis complication: unspecified Pancreatitis type: unspecified pancreatitis type Qualified Code(s): K85.90 - Acute pancreatitis without necrosis or infection, unspecified PLAN: Plan Choledochocele v other lesion extending into duodenum versus something else. in pt s/p cholecystectomy with an elevated lipase of 1,405 units/L along with an elevated AST of 340 and ALT of 439 consistent with suspected underlying acute pancreatitis consult GI. Pending findings, will need to determine if general surgery would need to be involved. DVT prophylaxis - SCD's only with impending ERCP. Charges/Coding Visit Charges Inpatient E&M: 91873 Subs Hosp L2
--- NOTE | 2023-03-31 08:35 | CPS ---
SMI and PEP dc'd. 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 Pt informed to call if she needed help with devices
[2023-03-31] MEDS: LORazepam 2 MG/ML Syringe 1 MG IV (09:34)
[2023-03-31] MEDS: Pantoprazole Sodium 40 MG in 0.9% Normal Saline (100mL MB+) 100 ML 330 MG IV (12:00)
--- NOTE | 2023-03-31 15:10 | CASEMGMT ---
RN CM DC Planning: This RN CM reviewed pt's medical record. Noted pt's 6 clicks score=22. Pt works and is independent at baseline. Attempted to meet with pt face to face at bedside. Upon entering pt's room, pt with eyes closed and resting quietly with spouse at bedside also with eyes closed. No anticipated discharge needs identified as pt with support of spouse, PCP noted, and pt independent at baseline. RN CM will remain available if discharge needs are determined. DC Plan: Home with support of spouse. Sanjeev Cardenas RN AC
--- NOTE | 2023-03-31 16:49 | CON.PCM.GI_ITS ---
HPI Consult Data Date of Consult: 03/31/23 HPI Narrative Reason for Consultation: Elevated liver enzymes HPI Narrative: YENNI ALVARADO, is a 37 F with a past medical history of obesity; BMI 37.1 this admission, hypothyroidism, history of tobacco abuse, history of cholecystectomy, adult ADD, listed allergy to penicillin and history of COVID-19 who presents to [facility] ER complaining of abdominal pain. Ms. Alvarado reports her symptoms began approximately 3 hours prior to arrival with the abrupt onset of nausea and abdominal pain that was [id number], cramping, generalized and intermittent with nothing seeming to make the pain better but palpation of the area makes it worse. CT scan in the ER revealed choledochocele with an elevated lipase of 1,405 units/L along with an elevated AST of 340 and ALT of 439. She denies related fever, chills, diarrhea or constipation but she does admit to abdominal d istention in addition to abdominal pain that is focused mainly in the epigastrium and upper Right abdomen. She was then admitted to the general medical floor for ongoing care for stay that is expected to be greater than 48 hours. She had MRCP and it does show filling defects in the common bile duct. [facility] Home Medications dextroamphetamine-amphetamine ER 15 mg 24hr capsule,extend release 15 mg PO BID 03/05/21 [History Last Taken Unknown] levothyroxine 25 mcg tablet 25 mcg PO DAILY 03/30/23 [History Last Taken Unknown] Allergy/AdvReac Type Severity Reaction Status Date / Time Penicillins Allergy Severe Rash Verified 03/02/21 11:33 Social History Smoking Status: Former smoker ROS ROS Narrative Review of systems: General: Patient denies fever or chills HENT: Denies headache, denies stuffy nose, denies sore throat EYES: Denies changes in vision Resp: Denies cough, denies shortness of breath Cardiac: Denies chest pain or palpitations GI: Patient admits to abdominal pain with nausea as per HPI : Denies changes in urination Extremity: Denies swelling Musculoskeletal: Feels somewhat generally weak and unwell Neuro: Denies any numbness/tingling Heme: Denies any bleeding or bruising Skin: Denies rashes Psychiatric: No complaints voiced related to uncontrolled depression or anxiety Endocrine: No polyuria, polydipsia or polyphagia The rest of the 14 point ROS was negative except for positives in HPI. Lab / Micro Data 03/31/23 04:12 03/31/23 04:12 Labs: Laboratory Results - last 24 hr 03/30/23 18:15: WBC 13.2 H, RBC 4.58, Hgb 13.3, Hct 40.0, MCV 87.3, MCH 29.0, MCHC 33.3, RDW Std Deviation 41.2, RDW Coeff of Lydia 13.0, Plt Count 410, MPV 8.8, Immature Gran % (Auto) 0.700, Neut % (Auto) 56.5, Lymph % (Auto) 30.5, [place] % (Auto) 8.9, Eos % (Auto) 2.9, Baso % (Auto) 0.5, Absolute Neuts (auto) 7.4, Absolute Lymphs (auto) 4.02, Nucleated RBC % 0, Sodium 141, Potassium 4.1, Chloride 109 H, Carbon Dioxide 25.0, Anion Gap 7, BUN 8, Creatinine 0.69, Estim Creat Clear Calc 126.87, Est GFR (MDRD) Af Amer 123, Est GFR (MDRD) Non-Af 102, BUN/Creatinine Ratio 11.7, Glucose 121 H, Calcium 9.9, Total Bilirubin 0.40, AST 340 H, ALT 439 H, Alkaline Phosphatase 117, Total Protein 8.5 H, Albumin 4.0, Globulin 4.5 H, Albumin/Globulin Ratio 0.9, Lipase 1405 H, Serum , Qual NEGATIVE 03/30/23 18:45: Urine Color Yellow, Urine Clarity Clear, Urine pH 7.0, Ur Specific [place] 1.005, Urine Protein Negative, Urine Glucose (UA) Normal, Urine Ketones Negative, Urine Occult Blood 150 H, Urine Nitrite Negative, Urine Bilirubin Negative, Urine Urobilinogen Normal, Ur Leukocyte Esterase Negative, Urine RBC 0-5 SEEN, Urine WBC 0 SEEN, Ur Squamous Epith Cells 0 SEEN, Urine Bacteria 0 SEEN, Urine Mucus 0 SEEN 03/31/23 04:12: WBC 8.3, RBC 4.28, Hgb 12.1, Hct 37.5, MCV 87.6, MCH 28.3, MCHC 32.3, RDW Std Deviation 42.4, RDW Coeff of Lydia 13.2, Plt Count 377, MPV 9.1, Immature Gran % (Auto) 0.400, Neut % (Auto) 52.2, Lymph % (Auto) 35.1, [place] % (Auto) 8.7, Eos % (Auto) 2.9, Baso % (Auto) 0.7, Absolute Neuts (auto) 4.3, Absolute Lymphs (auto) 2.91, Nucleated RBC % 0, Sodium 140, Potassium 4.3, Chloride 112 H, Carbon Dioxide 25.0, Anion Gap 3 L, BUN 6 L, Creatinine 0.51 L, Estim Creat Clear Calc 170.76, Est GFR (MDRD) Af Amer 172, Est GFR (MDRD) Non-Af 142, BUN/Creatinine Ratio 11.7, Glucose 78, Calcium 8.4 L, Phosphorus 3.8, Magnesium 2.3, Total Bilirubin 0.70, AST 549 H, ALT 671 H, Alkaline Phosphatase 101, Total Protein 6.8, Albumin 3.2, Globulin 3.6, Albumin/Globulin Ratio 0.9, Lipase 158 H, TSH 9.58 H Imaging Radiology Impression Abdomen/Pelvis CT 03/30/23 18:47 IMPRESSION: 1. Prominent biliary ductal dilatation status post cholecystectomy which is out of portion to what is expected. Question choledochocele or other protruding lesion extending into the lumen of the second portion of the the duodenum. Correlate with LFTs and consider MRCP/ERCP as clinically indicated. 2. No acute or inflammatory disease or bowel obstruction. 3. Ancillary findings as above. Electronically Signed: Jerardo Mackey MD at 20:07 EST , MRCP 03/31/23 04:15 IMPRESSION: Status post cholecystectomy. Filling defects within the bile duct consistent with stones. Consider ultrasound and/or ERCP for confirmation. Electronically Signed: Jorge Armendariz MD at 12:34 EST , Assessment & Plan Assessment/Plan (1) Choledochocele: (2) Acute pancreatitis: QUALIFIERS: Pancreatitis type: unspecified pancreatitis type Acute pancreatitis complication: unspecified Qualified Code(s): K85.90 - Acute pancreatitis without necrosis or infection, unspecified PLAN: Plan 37-year-old with no significant past medical history presents with abdominal pain in epigastric region and right upper quadrant consistent with choledocholithiasis induced pancreatitis and induced cholestatic hepatitis. No choledochocele was seen during the MRI. She will need endoscopic evaluation of her hepatobiliary system. She will have therapeutic removal of stones and dilation of the common bile duct. She was explained alternatives, risk, benefits include not withstanding bleeding, infection, sepsis, perforation, need for intervention . She will have an ASA of 3. Charges/Coding Visit Charges Inpatient E&M: 12006 Init Hosp L3
[2023-04-01 03:58] VITALS: BMI 36.8
[2023-04-01] MEDS: Ondansetron 4 MG/2 ML Vial IV (03:58)
[2023-04-01 04:00] VITALS: BP 118/58; PULSE 62; RESP 18; TEMP 36.4; O2SAT 96
[2023-04-01] MEDS: Cefepime HCl 2 GM in 0.9% Normal Saline (100mL MB+) 100 ML IV ×3 (05:16→21:36)
--- NOTE | 2023-04-01 05:55 | EKG12_ITS ---
Test Reason : PRE-OP Blood Pressure : / mmHG Vent. Rate : 061 BPM Atrial Rate : 061 BPM P-R Int : 152 ms QRS Dur : 082 ms QT Int : 414 ms P-R-T Axes : 046 066 069 degrees QTc Int : 416 ms Normal sinus rhythm Normal ECG Confirmed by IAIN QUEEN, ELDER ([id number]), science editor JERMAIN AARON ([id number]) on 04/03/2023 6:27:47 AM Referred By: Confirmed By:ELDER TIMMONS MD
[2023-04-01 06:53] LABS: Thyroid Stim Hormone (TSH) 2.01 uIU/mL (0.358-3.74)
[2023-04-01 07:35] VITALS: O2SAT 97
[2023-04-01] MEDS: 0.9% Normal Saline (1000mL) 1,000 ML 125 ML IV ×3 (07:51→23:30)
--- NOTE | 2023-04-01 08:01 | PN.HOSP_ITS ---
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 Objective Data Objective Data Vital Signs: Vital Signs Temp Pulse Resp BP Pulse Ox O2 Del Method 36.4 C L 62 18 118/58 L 97 Room Air 04/01/23 04:00 04/01/23 04:00 04/01/23 04:00 04/01/23 04:00 04/01/23 07:35 04/01/23 07:35 Oxygen Delivery Method Room Air Weight: 97.2 kg Body Mass Index (BMI) 36.8 Intake & Output: Intake and Output for Last 24 Hours 03/30/23 03/31/23 04/01/23 23:59 23:59 23:59 Intake Total 1210 / 1210 2410 / 2810 1500 / 1500 Balance 1210 / 1210 2410 / 2810 1500 / 1500 Lab / Micro Data 03/31/23 04:12 03/31/23 04:12 Labs: Laboratory Results - last 24 hr 04/01/23 05:50: TSH 2.01 Radiography Diagnostic Testing: Radiology Impression MRCP 03/31/23 04:15 IMPRESSION: Status post cholecystectomy. Filling defects within the bile duct consistent with stones. Consider ultrasound and/or ERCP for confirmation. Electronically Signed: Jorge Armendariz MD at 12:34 EST , Physical Exam Const alert and no apparent distress Resp normal respiratory effort Assessment & Plan Assessment/Plan (1) Choledochocele: (2) Acute pancreatitis: QUALIFIERS: Acute pancreatitis complication: unspecified Pancreatitis type: unspecified pancreatitis type Qualified Code(s): K85.90 - Acute pancreatitis without necrosis or infection, unspecified PLAN: Plan Choledocholithiasis * choledocholcele ruled out. * With associated gallstone pancreatitis * in pt s/p cholecystectomy * GI consult. Plan for ERCP on the . DVT prophylaxis - SCD's only with impending ERCP. Charges/Coding Visit Charges Inpatient E&M: 28355 Subs Hosp L1
[2023-04-01 09:51] VITALS: BP 125/75; PULSE 64; RESP 16; TEMP 36.6; O2SAT 94
[2023-04-01] MEDS: Pantoprazole Sodium 40 MG in 0.9% Normal Saline (100mL MB+) 100 ML 330 MG IV (09:54)
[2023-04-01] MEDS: Morphine 2 MG/ML Syringe IV ×2 (12:06→21:33)
[2023-04-01 16:00] VITALS: BP 105/59; PULSE 67; RESP 16; TEMP 36.6; O2SAT 98
[2023-04-01 22:00] VITALS: BP 116/60; PULSE 64; RESP 18; TEMP 36.9; O2SAT 98
[2023-04-02] VITALS (10 sets, daily range): BP systolic 114–137; BP diastolic 59–90; PULSE 61–86; RESP 16–18; TEMP 36.6–37.1; O2SAT 93–99; BMI 36.8
[2023-04-02] MEDS: Ondansetron 4 MG/2 ML Vial IV (04:42)
[2023-04-02] MEDS: Cefepime HCl 2 GM in 0.9% Normal Saline (100mL MB+) 100 ML IV ×2 (04:46→13:40)
[2023-04-02 06:03] LABS: Absolute Lymphocyte Count 2.23 X10^3/uL (0.83-4.51); Absolute Neutrophil Count 4.6 X10^3/uL (2.0-7.7); Basophil# 0.04 X10^3/uL; Basophil% 0.5 % (0-1); Eosinophil# 0.28 X10^3/uL; Eosinophils% 3.6 % (0-5); Hematocrit 32.3 % (37-47); Hemoglobin 10.4 g/dL (12.0-15.0); Lymphocyte # 2.23 X10^3/ul (0.83-4.51); Mean Corp Hgb Conc 32.2 g/dL (32-36); Mean Corpuscular Hgb 28.8 pg (27.0-32.0); Mean Corpuscular Volume 89.5 fL (81-99); Mean Platelet Vol. 8.8 fl (6.2-12.0); Monocyte# 0.53 X10^3/uL; Monocyte% 6.9 % (0-10); NRBC Flagged by Analyzer 0 % (0-5); Neutrophil # 4.58 X10^3/uL (2.7-7.7); Neutrophil % 59.7 % (47-70); Platelet Count 302 K/mm3 (150-450); RBC Distribution Width SD 42.8 fl (35.1-43.9); Red Blood Count 3.61 M/mm3 (4.2-5.4); White Blood Count 7.7 K/mm3 (4.4-11.0)
[2023-04-02 06:27] LABS: Anion Gap 2 (5-15); BUN 5 mg/dL (7-18); BUN/Creat Ratio 9.7 RATIO (10-20); Calcium,Total 8.5 mg/dL (8.5-10.1); Chloride 114 mmol/L (98-107); Creatinine, Serum 0.52 mg/dL (0.55-1.02); EST Glomerular Filtration Rate 142 mL/min (>60); Est Glom Filt Rate - Afr Amer 172 mL/min (>60); Estimated Creatinine Clearance 167.94 ml/min; Glucose 106 mg/dL (74-106); Sodium Level 141 mmol/L (136-145)
[2023-04-02] MEDS: Pantoprazole Sodium 40 MG in 0.9% Normal Saline (100mL MB+) 100 ML 330 MG IV (08:39)
[2023-04-02] MEDS: 0.9% Normal Saline (1000mL) 1,000 ML 125 ML IV (08:39)
--- NOTE | 2023-04-02 08:45 | PN.HOSP_ITS ---
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) Objective Data Objective Data Vital Signs: Vital Signs Temp Pulse Resp BP Pulse Ox O2 Del Method 98.2 F 68 18 114/71 98 Room Air 04/02/23 04:45 04/02/23 04:45 04/02/23 04:45 04/02/23 04:45 04/02/23 04:45 04/02/23 08:07 Oxygen Delivery Method Room Air Weight: 214 lb 15.211 oz Body Mass Index (BMI) 36.8 Intake & Output: Intake and Output for Last 24 Hours 03/31/23 04/01/23 04/02/23 23:59 23:59 23:59 Intake Total 2410 / 2810 3701.67 / 4201.67 1600 / 1600 Balance 2410 / 2810 3701.67 / 4201.67 1600 / 1600 Lab / Micro Data 04/02/23 05:50 04/02/23 05:50 Labs: Laboratory Results - last 24 hr 04/02/23 05:50: WBC 7.7, RBC 3.61 L, Hgb 10.4 L, Hct 32.3 L, MCV 89.5, MCH 28.8, MCHC 32.2, RDW Std Deviation 42.8, RDW Coeff of Lydia 13.0, Plt Count 302, MPV 8.8, Immature Gran % (Auto) 0.300, Neut % (Auto) 59.7, Lymph % (Auto) 29.0, [place] % (Auto) 6.9, Eos % (Auto) 3.6, Baso % (Auto) 0.5, Absolute Neuts (auto) 4.6, A bsolute Lymphs (auto) 2.23, Nucleated RBC % 0, Sodium 141, Potassium 4.0, Chloride 114 H, Carbon Dioxide 25.0, Anion Gap 2 L, BUN 5 L, Creatinine 0.52 L, Estim Creat Clear Calc 167.94, Est GFR (MDRD) Af Amer 172, Est GFR (MDRD) Non-Af 142, BUN/Creatinine Ratio 9.7 L, Glucose 106, Calcium 8.5 Assessment & Plan Assessment/Plan (1) Choledochocele: (2) Acute pancreatitis: QUALIFIERS: Acute pancreatitis complication: unspecified Pancreatitis type: unspecified pancreatitis type Qualified Code(s): K85.90 - Acute pancreatitis without necrosis or infection, unspecified PLAN: Plan This is a 37-year-old female admitted with epigastric/right upper quadrant abdominal pain, sudden onset associated with nausea about 3 hours prior to admission. Abdominal pain was moderate to severe cramping intermittent and then became generalized. 1. Acute gallstone pancreatitis due to choledocholithiasis: Patient is admitted in PCU. Patient had cholecystectomy. Lipase was 1405, improved to 158 with IV fluid. N.p.o. for ERCP. Patient had MRCP which shows CBD 1 cm. Multiple filling defect in distal CBD suggesting stones measuring up to 0.8 cm. Normal spleen and pancreas. GI is consulted. Plan for ERCP. DVT prophylaxis - SCD's only with impending ERCP. Charges/Coding Visit Charges Inpatient E&M: 96281 Subs Hosp L2
[2023-04-02 09:30] LABS: AST(SGOT) 67 U/L (15-37); Alanine Aminotransfer ALT/SGPT 264 U/L (13-56); Alkaline Phosphatase 65 U/L (45-117); Bilirubin, Direct 0.13 mg/dL (0.00-0.30); GGTP 868 U/L (5-55); Globulin 3.3 g/dL (2.2-4.2); Protein, Total 6.3 g/dL (6.4-8.2)
--- NOTE | 2023-04-02 14:06 | DCINST_ITS ---
Discharge Instructions Diet Discharge Diet: No restrictions Activity Discharge Activity: Return to Normal Activity Weight Bearing Status: Weight bearing as tolerated Dressing / Incision Call your doctor if you observe: Fever of 101 or Higher, Coldness, Increased Pain, Numbness or Tingling, Change in Color, Inability to urinate, Inability to have a bowel movement, Using more than 1 pad per hour, Shortness of breath, Dizziness, Fainting spells, Swelling in the ankles, Chest pain, Prolonged hiccupping, Increased palpitations (irregular heartbeat) and Calf discomfort Follow Up Care When: IN 2 WEEKS Test Results: Test results from this visit will be discussed in further detail at your follow- up appointment, if applicable. Discharge Plan Admission Admit Date/Time: 03/30/23 21:00 Primary Reason for Your Visit: Acute gallstone pancreatitis due to choledocholithiasis Attending Provider: Duane Samano Primary Care Provider: Dann Stokes NP Consulting Providers: Valentino Villarreal; Hao Messina Discharge Orders/Prescriptions Prescriptions: Continued dextroamphetamine-amphetamine 15 mg capsule,extended release 24hr 15 mg PO BID levothyroxine 25 mcg tablet 25 mcg PO DAILY Patient Comments: TAKE 1 TABLET BY MOUTHCONCE DAILY Referrals / Follow Up: Dann Stokes NP, DATA CONVERSION DEVELOPER-C [Primary Care Provider] - Disposition Disposition (needs filled in before D/C Order can be placed): Home, Self Care
[2023-04-02] MEDS: Lactated Ringers 1,000 ML 15 ML IV (14:55)
--- NOTE | 2023-04-02 15:40 | RAD_ITS ---
Fluoroscopic guided ERCP INDICATION: Pain history of cholecystectomy TECHNIQUE: Fluoroscopic guided ERCP was performed by attending sales agent fire insurance in the anterior projection.. 88.7 seconds of fluoroscopic time were utilized during the exam. FINDINGS: 9 fluoroscopic guided images were obtained during the exam to document findings during the study. For more complete information recommend correlation with procedural notes RAD/ERCP Biliary/Pancreas IMPRESSION: Fluoroscopic guided ERCP Electronically Signed: Grabiel Rodriguez MD at 16:32 EST ,
--- NOTE | 2023-04-02 15:45 | DS.PCM_ITS ---
Providers Date of Admission: 03/30/23 Date of Discharge: 04/02/23 Primary Care Physician: Dann Stokes, MIKE-C Consultations 03/30/23 23:20 Consult: Gastroenterology Routine Consulting Provider: [facility] Reason for Consult: Choledochocele with pancreatitis with need for ERCP EMERGENT Consult: No MD Notified: Yes Date Notified: 03/31/23 Time Notified: 06:53 Method of Notification: Text Reason For Visit: CHOLEDOCHOCELE WITH ACUTE PANCREATITIS Diagnosis Discharge Diagnosis (1) Choledochocele: Status: Acute Code(s): Q44.5 - Other congenital malformations of bile ducts (2) Acute pancreatitis: Status: Acute Code(s): K85.90 - Acute pancreatitis without necrosis or infection, unspecified Qualifiers: Acute pancreatitis complication: unspecified Pancreatitis type: unspecified pancreatitis type Qualified Code(s): K85.90 - Acute pancreatitis without necrosis or infection, unspecified Plan This is a 37-year-old female admitted with epigastric/right upper quadrant abdominal pain, sudden onset associated with nausea about 3 hours prior to admission. Abdominal pain was moderate to severe cramping intermittent and then became generalized. 1. Acute gallstone pancreatitis due to choledocholithiasis: Patient is admitted in PCU. Patient had cholecystectomy. Lipase was 1405, improved to 158 with IV fluid. N.p.o. for ERCP. Patient had MRCP which shows CBD 1 cm. Multiple filling defect in distal CBD suggesting stones measuring up to 0.8 cm. Normal spleen and pancreas. GI was consulted. 04/02: ERCP was done. Impressions : - The entire main bile duct was markedly dilated, with a stone causing an obstruction. - Choledocholithiasis was found. Removal was not accomplished; a stent was inserted. - A biliary sphincterotomy was performed. - The biliary tree was swept. - The left main hepatic duct was successfully dilated. - One temporary stent was placed into the common bile duct. Patient wanted to go home yesterday. Abdominal pain is controlled. She is discharged on 3 more days of Levaquin 500 milligram once daily. Advised Tylenol for pain and fever [id number]. Does not require opioids. DVT prophylaxis - SCD's only with impending ERCP. Discharge medication reconciliation done. Discharge follow-up instructions completed. Discharge process discussed with the patient and all questions were answered to patient's satisfaction. Follow with PCP in 1 to 2 weeks Total time spent, exact 35 minutes on discharge meds reconciliation, exa mination, coordination of care with nurses and ancillary staff, review of imaging and blood test and discussion with the patient on follow-up instructions. Medications at Discharge Home Medications dextroamphetamine-amphetamine ER 15 mg 24hr capsule,extend release 15 mg PO BID 03/05/21 levothyroxine 25 mcg tablet 25 mcg PO DAILY 03/30/23 levofloxacin 500 mg tablet 500 mg PO DAILY 3 days #3 tabs 04/02/23 ondansetron HCl 4 mg tablet 4 mg PO Q6H PRN nausea and vomiting #60 tabs 04/03/23 Physical Exam Narrative Seen and examined. General: Alert, Oriented x3, Cooperative HEENT: Atraumatic, PERRLA, EOMI, Normocephalic Oral: No Gingival or Mucosal Lesions/ Ulcerations Neck: Supple, No JVD, Negative Carotid Bruits Chest wall/Lungs: Air entry diminished in bilateral lung bases. No crepitation/rhonchi Cardiovascular: Regular rate, Regular Rhythm, Normal S1, Normal S2, systolic flow murmur. Abdomen: Mild tenderness present over epigastric and right upper quadrant. Bowel Sounds Present, Soft,Non-Distended : No dysuria. No renal angle tenderness. No suprapubic tenderness. Extremities: No edema, Capillary Refill Less than 3 Seconds Skin: No rashes, No breakdown Musculoskeletal: No Tenderness to Palpation of Joints or Extremities Neurological: Cranial nerves II-XII grossly intact, DTR 2+/4. No acute focal neurological deficit. Psych/Mental Status: Normal Affect, Appropriate. Weight / BMI Weight Weight: 214 lb 15.211 oz Body Mass Index (BMI) 36.8 ABG / Lab / Microbiology Data 04/02/23 05:50 04/02/23 05:50 Laboratory: Laboratory Results - last 24 hr 04/02/23 05:50: WBC 7.7, RBC 3.61 L, Hgb 10.4 L, Hct 32.3 L, MCV 89.5, MCH 28.8, MCHC 32.2, RDW Std Deviation 42.8, RDW Coeff of Lydia 13.0, Plt Count 302, MPV 8. 8, Immature Gran % (Auto) 0.300, Neut % (Auto) 59.7, Lymph % (Auto) 29.0, [place] % (Auto) 6.9, Eos % (Auto) 3.6, Baso % (Auto) 0.5, Absolute Neuts (auto) 4.6, Absolute Lymphs (auto) 2.23, Nucleated RBC % 0, Sodium 141, Potassium 4.0, Chloride 114 H, Carbon Dioxide 25.0, Anion Gap 2 L, BUN 5 L, Creatinine 0.52 L, Estim Creat Clear Calc 167.94, Est GFR (MDRD) Af Amer 172, Est GFR (MDRD) Non-Af 142, BUN/Creatinine Ratio 9.7 L, Glucose 106, Calcium 8.5, Total Bilirubin 0.50, Direct Bilirubin 0.13, GGT 868 H, AST 67 H, ALT 264 H, Alkaline Phosphatase 65, Total Protein 6.3 L, Albumin 3.0 L, Globulin 3.3 D/C Instructions Discharge Diet: No restrictions Weight Bearing Status: Weight bearing as tolerated Call your doctor if you observe: Fever of 101 or Higher, Coldness, Increased Pain, Numbness or Tingling, Change in Color, Inability to urinate, Inability to have a bowel movement, Using more than 1 pad per hour, Shortness of breath, Dizziness, Fainting spells, Swelling in the ankles, Chest pain, Prolonged hiccupping, Increased palpitations (irregular heartbeat) and Calf discomfort When: IN 2 WEEKS Meaningful Use Info Meaningful Use Diagnoses (Choose all that apply): None applicable Discharge Plan Admission Admit Date/Time: 03/30/23 21:00 Primary Reason for Your Visit: Acute gallstone pancreatitis due to choledocholithiasis Attending Provider: Duane Samano Primary Care Provider: Dann Stokes EMPLOYEE BENEFITS INSURANCE AGENT Consulting Providers: Valentino Villarreal; Hao Messina Discharge Orders/Prescriptions Prescriptions: New levofloxacin 500 mg tablet 500 mg PO DAILY 3 Days Qty: 3 0RF Continued dextroamphetamine-amphetamine 15 mg capsule,extended release 24hr 15 mg PO BID levothyroxine 25 mcg tablet 25 mcg PO DAILY Patient Comments: TAKE 1 TABLET BY MOUTHCONCE DAILY No Action ondansetron HCl 4 mg tablet 4 mg PO Q6H PRN (Reason: nausea and vomiting) Qty: 60 0RF Referrals / Follow Up: Friend,Grzegorz, DO [Med Staff - Active Staff] - Within 1 Month Dann Stokes EMPLOYEE BENEFITS INSURANCE AGENT, EMPLOYEE BENEFITS INSURANCE AGENT-C [Primary Care Provider] - Disposition Disposition (needs filled in before D/C Order can be placed): Home, Self Care Charges/Coding Visit Charges Inpatient E&M: 50114 Disch Hosp >30min
--- NOTE | 2023-04-02 16:09 | OP.ERCP_ITS ---
Patient Name: Marilynn Hyde Procedure Date: 04/02/2023 3:09 PM Date of : 1985 Age: 37 Procedure: ERCP Indications: Bile duct stone(s) Providers: Grzegorz Pickens DO Medicines: Monitored Anesthesia Care Patient Profile: This is a 37 year old female. Refer to note in patient chart for documentation of history and physical. Patient has symptoms of acute right upper quadrant abdominal pain and acute jaundice. This patient has no history of previous ERCP. Complications: No immediate complications. Procedure: Pre-Anesthesia Assessment: - Prior to the procedure, a History and Physical was performed, and patient medications and allergies were reviewed. The patient is competent. The risks and benefits of the procedure and the sedation options and risks were discussed with the patient. All questions were answered and informed consent was obtained. Patient identification and proposed procedure were verified by the physician in the pre-procedure area. Mental Status Examination: alert and oriented. Airway Examination: normal oropharyngeal airway and neck mobility. Respiratory Examination: clear to auscultation. CV Examination: normal. Prophylactic Antibiotics: The patient does not require prophylactic antibiotics. Prior Anticoagulants: The patient has taken no anticoagulant or antiplatelet agents. ASA Grade Assessment: II - A patient with mild systemic disease. After reviewing the risks and benefits, the patient was deemed in satisfactory condition to undergo the procedure. The anesthesia plan was to use monitored anesthesia care (MAC). Immediately prior to administration of medications, the patient was re-assessed for adequacy to receive sedatives. The heart rate, respiratory rate, oxygen saturations, blood pressure, adequacy of pulmonary ventilation, and response to care were monitored throughout the procedure. The physical status of the patient was re-assessed after the procedure. After obtaining informed consent, the scope was passed under direct vision. Throughout the procedure, the patient's blood pressure, pulse, and oxygen saturations were monitored continuously. The Duodenoscope was introduced through the mouth, and advanced to the duodenum and used to inject contrast into the bile duct and ventral pancreatic duct. The ERCP was accomplished without difficulty. The patient tolerated the procedure well. Scope In: 3:39:15 PM Scope Out: 3:59:21 PM Total Procedure Duration Time 0 hours 20 minutes 6 seconds Findings: The room service waiter film was normal. The esophagus was successfully intubated under direct vision. The scope was advanced to a normal major papilla in the descending duodenum without detailed examination of the pharynx, larynx and associated structures, and upper GI tract. The upper GI tract was grossly normal. The bile duct was deeply cannulated with the short-nosed traction sphincterotome. Contrast was injected. I personally interpreted the bile duct images. There was brisk flow of contrast through the ducts. Image quality was excellent. Contrast extended to the biliary pancreatic junction. Opacification of the entire biliary tree except for the cystic duct and gallbladder was successful. The maximum diameter of the ducts was 10 mm. The entire biliary tree except for the cystic duct and gallbladder contained three stones, the largest of which was 6 mm in diameter. The entire biliary tree except for the cystic duct and gallbladder and main bile duct were markedly dilated, with a stone causing an obstruction. The largest diameter was 10 mm. A straight Roadrunner wire was passed into the biliary tree. A 5 mm biliary sphincterotomy was made with a braided traction (standard) sphincterotome using ERBE electrocautery. The sphincterotomy oozed blood. To discover objects, the biliary tree was swept with a 15 mm balloon starting at the bifurcation. Sludge was swept from the duct. Three stones were removed. All stones remained. Dilation of the left main hepatic duct with 5-7-8.5 Fr catheter dilator was successful. One 10 Fr by 5 cm transpapillary temporary stent was placed 5 cm into the common bile duct. Bile flowed through the stent. The stent was in good position. Impression: - The entire main bile duct was markedly dilated, with a stone causing an obstruction. - Choledocholithiasis was found. Removal was not accomplished; a stent was inserted. - A biliary sphincterotomy was performed. - The biliary tree was swept. - The left main hepatic duct was successfully dilated. - One temporary stent was placed into the common bile duct. Procedure Code(s): --- Professional --- 69047, Endoscopic retrograde cholangiopancreatography (ERCP); with placement of endoscopic stent into biliary or pancreatic duct, including pre- and post-dilation and guide wire passage, when performed, including sphincterotomy, when performed, each stent 82838, Endoscopic retrograde cholangiopancreatography (ERCP); with removal of calculi/debris from biliary/pancreatic duct(s) 65032, 29, Endoscopic catheterization of the biliary ductal system, radiological supervision and interpretation 82571, Unlisted procedure, biliary tract CPT copyright 2021 [employer]. All rights reserved. The codes documented in this report are preliminary and upon lap regulator review may be revised to meet current compliance requirements. Grzegorz Pickens DO 04/02/2023 4:08:34 PM This report has been signed electronically. Number of Addenda: 0 Note Initiated On: 04/02/2023 3:09 PM
--- NOTE | 2023-04-02 16:09 | OP.CCLET_ITS ---
04/02/2023 Dann Stokes Re : ERCP procedure for Marilynn Hawthorner Divya This procedure was performed on Sunday, April 02, 2023. My impressions and recommendations are as follows: Impressions : - The entire main bile duct was markedly dilated, with a stone causing an obstruction. - Choledocholithiasis was found. Removal was not accomplished; a stent was inserted. - A biliary sphincterotomy was performed. - The biliary tree was swept. - The left main hepatic duct was successfully dilated. - One temporary stent was placed into the common bile duct. Recommendations : My findings are described in the full procedure note, which is enclosed. If I can be of further assistance, please feel free to contact me at . Sincerely, Grzegorz Pickens, 04/02/2023 4:08:34 PM This report has been signed electronically.
== END 2023-04-02 18:38 | disposition home or self-care (01) | DRG 439 ==
LOC: ED 20:44 → PCU 21:34
PROVIDERS: Anesthesiology; Internal Medicine Gastroenterology; Admitting Provider Internal Medicine; Emergency Provider Emergency Medicine; PCP Nurse Practitioner Family; Visit Provider Internal Medicine
PROC: 0FC98ZZ Extirpation of Matter from Common Bile Duct, Via Natural or Artificial Opening Endoscopic (ICD-10-PCS; CPT 43260; principal; 2023-04-02 15:40)
DX: K85.10 Biliary acute pancreatitis without necrosis or infection (principal); K80.51 Calculus of bile duct without cholangitis or cholecystitis with obstruction; K75.89 Other specified inflammatory liver diseases; E03.9 Hypothyroidism, unspecified; E66.9 Obesity, unspecified; F98.8 Other specified behavioral and emotional disorders with onset usually occurring in childhood and adolescence; Z68.37 Body mass index [BMI] 37.0-37.9, adult; Z90.49 Acquired absence of other specified parts of digestive tract; Z79.899 Other long term (current) drug therapy; Z86.16 Personal history of COVID-19; Z87.891 Personal history of nicotine dependence
CPT/HCPCS: 36415; 74177; 74181; 74330; 76000; 80048; 80053; 80076; 81001; 82977; 83690; 83735; 84100; 84443; 84703; 85025; 93005; 94668; 99285; J7030; J7050; J7120; Q9967; A4216; J0330; J2405

== ENCOUNTER 2023-04-03 12:15 | Inpatient (IN) | payer OTHER, SELFPAY ==
[2023-04-03 12:16] VITALS: BP 128/76; PULSE 70; RESP 14; TEMP 37.2; O2SAT 98
--- NOTE | 2023-04-03 13:35 | EX.ED.DYSGE1 ---
HPI <Catherine Mcgovern RN - Last Filed: 04/03/23 14:50> History of Present Illness Chief Complaint: Abd Pain Detail of Chief Complaint: Upper abdominal pain Informant: patient Onset/Context/Timing Onset: Today (0430) Context: Sudden Onset Timing: Continuous Quality: sharp, squeezing Location: Upper abdomen Current Severity: 8/10 Maximum Severity: 3/10 Worsened by: Nothing Relieved by: Nothing Associated Symptoms Associated Symptoms: Nausea Narrative Narrative: Patient presents to the ED with upper abdominal pain in which she describes as sharp and squeezing rating 8/10. Patient recently admitted 03/30/2023 to 04/02/2023 for acute gallstone pancreatitis due to choledocholithiasis. Patient had ERCP 04/02/2023 in which she had a temporary stent placed. Patient reports she was feeling much better after ERCP and upon discharge. She reports she woke up with a sudden onset of upper abdominal pain and nausea at about 4:30 AM today. Patient reports pain feeling similar to pancreatic pain that required admission. Patient denies vomiting. Patient denies chest pain or shortness of breath. Denies dysuria, hematuria, and urinary frequency. Prior similar symptoms: Yes Recent Illness/Hospitalization: Yes PFSH <Catherine Mcgovern RN - Last Filed: 04/03/23 14:50> PFSH Medical History Acute pancreatitis Choledochocele Home Medications dextroamphetamine-amphetamine ER 15 mg 24hr capsule,extend release 15 mg PO BID 03/05/21 [History Last Taken Unknown] levothyroxine 25 mcg tablet 25 mcg PO DAILY 03/30/23 [History Last Taken Unknown] levofloxacin 500 mg tablet 500 mg PO DAILY 3 days #3 tabs 04/02/23 [Rx Last Taken Unknown] ondansetron HCl 4 mg tablet 4 mg PO Q6H PRN nausea and vomiting #60 tabs 04/03/23 [Rx Last Taken Unknown] Allergy/AdvReac Type Severity Reaction Status Date / Time Penicillins Allergy Severe Rash Verified 04/03/23 12:16 Social History Smoking Status: Former smoker ROS <Catherine Mcgovern RN - Last Filed: 04/03/23 14:50> ROS ED Constitutional Constitutional ED: Denies chills, fever(s) or sweats Eyes Eyes: Denies change in vision Cardiovascular Cardiovascular: Denies chest pain or palpitations Respiratory/Chest Respiratory/Chest: Denies cough or dyspnea Gastrointestinal Gastrointestinal: Reports abdominal pain and nausea; Denies diarrhea or vomiting Genitourinary Genitourinary ED: Denies dysuria, hematuria or urinary frequency Musculoskeletal Musculoskeletal: Reports myalgias; Denies arthralgias Neurologic Neurologic: Denies headache(s) EXAM <Catherine Mcgovern RN - Last Filed: 04/03/23 14:50> Physical Exam Const Vital Signs: 04/03/23 12:16 Temperature 99 F Temperature Source Temporal Pulse Rate 70 Respiratory Rate 14 Blood Pressure 128/76 H Blood Pressure Mean 93 Pulse Ox 98 Oxygen Delivery Method Room Air Positive well nourished and well developed General Appearance ED: well developed and NAD HEENT Reports moist mucous membranes Eyes PERRL and EOMs intact bilaterally Chest Wall inspection of chest normal and palpation of chest normal Resp normal respiratory effort and clear to auscultation bilaterally Auscultation: Negative for rales, rhonchi or wheezes Cardio regular rate, regular rhythm, S1 normal heart sound and S2 normal heart sound GI normal to inspection, nondistended, normoactive bowel sounds Palpation: soft and tender RLQ, RUQ and Rodriguez's sign Back/Spine no CVA tenderness Extremity normal to inspection General Extremety ED: Negative for edema or tenderness General Extremity: Negative for edema Neuro oriented x3 Sensorium / Orientation: alert Motor Exam: strength 5/5 throughout Psych mental status grossly normal Skin no rashes or lesions noted <Dr. Rusty Padgett MD - Last Filed: 04/03/23 14:57> Physical Exam Const Vital Signs: 04/03/23 12:16 Temperature 99 F Temperature Source Temporal Pulse Rate 70 Respiratory Rate 14 Blood Pressure 128/76 H Blood Pressure Mean 93 Pulse Ox 98 Oxygen Delivery Method Room Air MDM <Catherine Mcgovern RN - Last Filed: 04/03/23 14:50> MDM MDM Narrative Medical decision making narrative: IV line initiated. Labwork obtained to evaluate for leukocytosis, anemia, and electrolyte derangement. Morphine and Zofran ordered for abdominal pain and nausea. History & Record Review Discussion w/independent historian: Patient Additional record(s) reviewed:: Prior inpatient record Lab Data Attestation: I reviewed the patient's lab results. Labs: Laboratory Results - last 24 hr 04/03/23 13:36 WBC 20.7 H RBC 3.94 L Hgb 11.4 L Hct 34.3 L MCV 87.1 MCH 28.9 MCHC 33.2 RDW Std Deviation 40.1 RDW Coeff of Lydia 12.5 Plt Count 348 MPV 8.8 Immature Gran % (Auto) 0.700 Neut % (Auto) 81.0 H Lymph % (Auto) 13.5 L [place] % (Auto) 4.6 Eos % (Auto) 0.0 Baso % (Auto) 0.2 Absolute Neuts (auto) 16.8 H Absolute Lymphs (auto) 2.79 Nucleated RBC % 0 Sodium 139 Potassium 3.6 Chloride 108 H Carbon Dioxide 25.0 Anion Gap 6 BUN 5 L Creatinine 0.65 Est GFR (MDRD) Af Amer 132 Est GFR (MDRD) Non-Af 109 BUN/Creatinine Ratio 7.7 L Glucose 131 H Calcium 8.7 Total Bilirubin 0.50 AST 58 H ALT 227 H Alkaline Phosphatase 62 Total Protein 6.9 Albumin 3.4 Globulin 3.5 Albumin/Globulin Ratio 1.0 Lipase 1259 H Serum , Qual NEGATIVE Differential Diagnosis Chest pain/SOB: ACS Abdominal Pain: Pancreatitis Management Discussion w/another healthcare provider: Other (Dr. Padgett, ED provider) Treatment and Re-Evaluation :: CBC shows elevated WBC at 20.7 with neutrophils 81. Hemoglobin 11.4. Chemistries show an elevated glucose at 131, AST is elevated at 58 which is lower than yesterday. ALT is elevated at 227 which is also lower than yesterday. Lipase is elevated at 1259. Last reported at 158 on 03/31/23. Patient was given 4 mg of morphine and 4 mg of Zofran for pain and nausea. Upon reevaluation patient reports no change in pain and an additional 4 mg of morphine was ordered. Discussed lab results with the patient and need for admission. Patient agreeable. Hospitalist will be contacted for admission. <Dr. Rusty Padgett MD - Last Filed: 04/03/23 14:57> [facility] MDM Narrative Medical decision making narrative: IV line initiated. Labwork obtained to evaluate for leukocytosis, anemia, and electrolyte derangement. Morphine and Zofran ordered for abdominal pain and nausea. I have personally performed a face to face assessment of the patient and have reviewed the MARYLIN Note. I performed a substantive portion of the visit including all aspects of the following. My dumont findings include: History is [37-year-old female history of cholecystectomy around 2005. Had recent admission for pancreatitis and biliary obstruction from recurrent stones. She saw GI who did a biliary stent. She was just discharged yesterday since she started vellum epigastric and right upper quadrant abdominal pain with nausea. Says she feels dehydrated. Denies any fever.] Exam is [37-year-old female vital signs stable afebrile. HEENT exam dry mucous membranes. Neck nontender. Lungs clear to auscultation bilaterally. Heart regular rate rhythm rate about 70 no murmur. Abdomen soft tender epigastric right upper quadrant. No peritoneal signs. No distention or obstruction. Lower quadrants nontender. Moving all 4 extremities. Nontender no edema. Neurologically she is awake alert no focal motor deficits.] Medical Decision Making [37-year-old recent pancreatitis. Labs today show an elevated white count of 20,000. Liver enzymes are unremarkable lipase is elevated at 1259. Patient treated with IV fluids, Zofran for nausea and morphine 4 mg x 2 for her pain. Hospitalist and GI on page for readmission.] Other additions or changes: [None] Lab Data Lab results narrative: CBC white count elevated 20,700. H&H 11.4 and 34. Platelets 348. Electrolytes show sodium 139 gap of 6. BUN of 5 creatinine 0.6. Glucose 131. Liver enzymes show an elevated AST of 58. ALT of 227. Lipase of 1259. Serum test negative. Labs: Laboratory Results - last 24 hr 04/03/23 13:36 WBC 20.7 H RBC 3.94 L Hgb 11.4 L Hct 34.3 L MCV 87.1 MCH 28.9 MCHC 33.2 RDW Std Deviation 40.1 RDW Coeff of Lydia 12.5 Plt Count 348 MPV 8.8 Immature Gran % (Auto) 0.700 Neut % (Auto) 81.0 H Lymph % (Auto) 13.5 L [place] % (Auto) 4.6 Eos % (Auto) 0.0 Baso % (Auto) 0.2 Absolute Neuts (auto) 16.8 H Absolute Lymphs (auto) 2.79 Nucleated RBC % 0 Sodium 139 Potassium 3.6 Chloride 108 H Carbon Dioxide 25.0 Anion Gap 6 BUN 5 L Creatinine 0.65 Est GFR (MDRD) Af Amer 132 Est GFR (MDRD) Non-Af 109 BUN/Creatinine Ratio 7.7 L Glucose 131 H Calcium 8.7 Total Bilirubin 0.50 AST 58 H ALT 227 H Alkaline Phosphatase 62 Total Protein 6.9 Albumin 3.4 Globulin 3.5 Albumin/Globulin Ratio 1.0 Lipase 1259 H Serum , Qual NEGATIVE Discharge Plan Dx/Rx/DC Orders Clinical Impression: Acute pancreatitis, Acute gallstone pancreatitis, Obstruction of biliary stent, History of gallstones, History of biliary duct stent placement Disposition Disposition: Acute Care Hospital [facility]
[2023-04-03 13:45] LABS: Absolute Lymphocyte Count 2.79 X10^3/uL (0.83-4.51); Absolute Neutrophil Count 16.8 X10^3/uL (2.0-7.7); Basophil# 0.04 X10^3/uL; Basophil% 0.2 % (0-1); Eosinophil# 0.01 X10^3/uL; Hematocrit 34.3 % (37-47); Hemoglobin 11.4 g/dL (12.0-15.0); Lymphocyte # 2.79 X10^3/ul (0.83-4.51); Lymphocyte % 13.5 % (19-41); Mean Corp Hgb Conc 33.2 g/dL (32-36); Mean Corpuscular Hgb 28.9 pg (27.0-32.0); Mean Corpuscular Volume 87.1 fL (81-99); Mean Platelet Vol. 8.8 fl (6.2-12.0); Monocyte# 0.96 X10^3/uL; Monocyte% 4.6 % (0-10); NRBC Flagged by Analyzer 0 % (0-5); Neutrophil # 16.77 X10^3/uL (2.7-7.7); Platelet Count 348 K/mm3 (150-450); RBC Distribution Width CV 12.5 % (11.6-14.6); RBC Distribution Width SD 40.1 fl (35.1-43.9); Red Blood Count 3.94 M/mm3 (4.2-5.4); White Blood Count 20.7 K/mm3 (4.4-11.0)
[2023-04-03 13:54] LABS: Internal QC Validated? YES +Cl - CLEAR BKGD; Pregnancy, Serum, hCG Quali. NEGATIVE Negative
[2023-04-03] MEDS: Ondansetron 4 MG/2 ML Vial IV ×2 (13:55→21:11)
[2023-04-03] MEDS: Morphine 4 MG/ML Syringe IV ×3 (13:55→16:35)
[2023-04-03] MEDS: 0.9% Normal Saline (1000mL) 1,000 ML 999 ML IV (13:56)
[2023-04-03 14:05] LABS: AST(SGOT) 58 U/L (15-37); Alanine Aminotransfer ALT/SGPT 227 U/L (13-56); Albumin, Serum 3.4 g/dL (3.2-5.0); Alkaline Phosphatase 62 U/L (45-117); Anion Gap 6 (5-15); BUN 5 mg/dL (7-18); BUN/Creat Ratio 7.7 RATIO (10-20); Calcium,Total 8.7 mg/dL (8.5-10.1); Chloride 108 mmol/L (98-107); Creatinine, Serum 0.65 mg/dL (0.55-1.02); EST Glomerular Filtration Rate 109 mL/min (>60); Est Glom Filt Rate - Afr Amer 132 mL/min (>60); Globulin 3.5 g/dL (2.2-4.2); Glucose 131 mg/dL (74-106); Lipase 1259 U/L (13-75); Potassium 3.6 mmol/L (3.5-5.1); Protein, Total 6.9 g/dL (6.4-8.2); Sodium Level 139 mmol/L (136-145)
[2023-04-03 15:02] VITALS: BP 126/76; PULSE 78; RESP 20; TEMP 36.3; O2SAT 98
--- NOTE | 2023-04-03 15:11 | PCM.HP.STD ---
HPI - General General Date of Admission: 04/03/23 Date of Service: 04/03/23 Chief Complaint: Epigastric pain HPI Narrative YENNI ALVARADO, is a 37-year-old female history of hypothyroidism, ADHD, cholecystectomy in 2005 who presented to [facility] ED 04/03/2023 with upper abdominal pain that was sharp and squeezing in nature. Recently was admitted 03/30 through 04/02 for acute gallstone pancreatitis due to choledocholithiasis. Had ERCP 04/02/2023 and had temporary stent placed. Was feeling much better but woke up with sudden onset of abdominal pain and nausea at 4:30 AM. Reports pain felt similar to the pain requiring admission. AST is elevated at 58 which is lower than yesterday. ALT is elevated at 227 which is also lower than yesterday. Lipase is elevated at 1259. Last reported at 158 on 03/31/23. White blood cell count 20.7 which is up from 7.7 yesterday with left shift however patient status post procedure. Patient given morphine without significant relief and hospitalist contacted for admission. Evaluated patient at bedside, reports the pain started suddenly at 430 this morning that is squeezing and significant in nature, she has received 8 of morphine with no significant relief in her pain. Also has nausea with no emesis and Zofran has been helpful for this, did have a normal bowel movement since last night and no diarrhea. Has no fevers or chills or other acute complaints. [facility] Medical History (Updated 04/03/23 @ 15:[address] Patti Laughlin MD) Acute pancreatitis Choledochocele Hypothyroidism Home Medications dextroamphetamine-amphetamine ER 15 mg 24hr capsule,extend release 15 mg PO BID 03/05/21 [History Last Taken Unknown] levothyroxine 25 mcg tablet 25 mcg PO DAILY 03/30/23 [History Last Taken Unknown] levofloxacin 500 mg tablet 500 mg PO DAILY 3 days #3 tabs 04/02/23 [Rx Last Taken Unknown] ondansetron HCl 4 mg tablet 4 mg PO Q6H PRN nausea and vomiting #60 tabs 04/03/23 [Rx Last Taken Unknown] Allergy/AdvReac Type Severity Reaction Status Date / Time Penicillins Allergy Severe Rash Verified 04/03/23 12:16 Social History Smoking Status: Former smoker ROS ROS Narrative General: Denies fever/chills HENT: Denies headache, denies stuffy nose, denies sore throat EYES: Denies changes in vision Resp: Denies cough, denies shortness of breath Cardiac: Denies chest pain GI: Nausea, epigastric squeezing abdominal pain that radiates to the right : Denies changes in urination Extremity: Denies swelling MSK: Denies weakness Neuro: Denies any numbness/tingling Heme: Denies any bleeding or bruising Skin: Denies rashes Psychiatric: No complaints voiced Vital Signs Vital Signs Vital Signs: 04/03/23 12:16 04/03/23 15:02 Temperature 99 F 97.4 F L Temperature Source Temporal Pulse Rate 70 78 Respiratory Rate 14 20 H Blood Pressure 128/76 H 126/76 H Blood Pressure Mean 93 92 Pulse Ox 98 98 Oxygen Delivery Method Room Air Physical Exam Narrative General: Alert, oriented, no apparent distress HEENT: Atraumatic, normocephalic Eyes: Anicteric, normal conjunctiva, extraocular movements grossly intact Neck: Supple Respiratory: Clear to auscultation bilaterally, normal respiratory effort Cardiovascular: Regular rate and rhythm GI: Soft, tender in epigastric and right upper quadrants without rebound, guarding, rigidity Extremities: No edema Musculoskeletal: Moving all extremities Neuro: No overt focal neurological deficits Skin: No rashes appreciated Psych: Cooperative Results Lab / Micro Data 04/03/23 13:36 04/03/23 13:36 Labs: Laboratory Results - last 24 hr 04/03/23 13:36: WBC 20.7 H, RBC 3.94 L, Hgb 11.4 L, Hct 34.3 L, MCV 87.1, MCH 28.9, MCHC 33.2, RDW Std Deviation 40.1, RDW Coeff of Lydia 12.5, Plt Count 348, MPV 8.8, Immature Gran % (Auto) 0.700, Neut % (Auto) 81.0 H, Lymph % (Auto) 13.5 L, [place] % (Auto) 4.6, Eos % (Auto) 0.0, Baso % (Auto) 0.2, Absolute Neuts (auto) 16.8 H, Absolute Lymphs (auto) 2.79, Nucleated RBC % 0, Sodium 139, Potassium 3.6, Chloride 108 H, Carbon Dioxide 25.0, Anion Gap 6, BUN 5 L, Creatinine 0.65, Est GFR (MDRD) Af Amer 132, Est GFR (MDRD) Non-Af 109, BUN/Creatinine Ratio 7.7 L, Glucose 131 H, Calcium 8.7, Total Bilirubin 0.50, AST 58 H, ALT 227 H, Alkaline Phosphatase 62, Total Protein 6.9, Albumin 3.4, Globulin 3.5, Albumin/Globulin Ratio 1.0, Lipase 1259 H, Serum , Qual NEGATIVE Assessment & Plan Assessment/Plan (1) History of biliary duct stent placement: (2) History of gallstones: (3) Acute gallstone pancreatitis: (4) Hypothyroidism: PLAN: Plan #Acute abdominal pain after ERCP 04/02 and temporary stent placement for acute gallstone pancreatitis due to choledocholithiasis -Recurrence of symptoms that started at 4:30 AM -Patient had ERCP 04/02 which showed the entire main bile duct was markedly dilated with stone causing obstruction, removal not accomplished the stent inserted and biliary sphincterotomy was performed, biliary tree was swept and left main hepatic duct was dilated with 1 temporary stent placed in common bile duct -Discussed with GI, will give 2 L of LR for 3L total of bolus' and then start 250/hr -I's and O's, daily weights -N.p.o. -Continue her Levaquin but as IV, suspect elevated white blood cell count more likely due to procedure then suddenly new infection -GI consult placed #Hypothyroidism -Continue Synthroid # ADHD -Can resume home medications on discharge #DVT ppx: SCDs Patti Laughlin MD Charges/Coding Visit Charges Inpatient E&M: 42844 Init Hosp L1
[2023-04-03 15:37] VITALS: BMI 36.7
[2023-04-03 15:43] VITALS: BMI 36.7
[2023-04-03 15:44] VITALS: BP 125/69; PULSE 72; RESP 14; TEMP 36.8; O2SAT 99
[2023-04-03] MEDS: 0.9% Saline Lock 10 ML Syringe IV (16:28)
[2023-04-03] MEDS: Lactated Ringers 1,000 ML 250 ML IV ×2 (16:33→21:32)
[2023-04-03] MEDS: Lactated Ringers 1,000 ML 999 ML IV ×2 (16:33→17:38)
[2023-04-03] MEDS: proCHLORPERazine 10 MG/2 ML Vial 5 MG IV (16:36)
[2023-04-03] MEDS: levoFLOXacin IV 500 MG/100 ML BAG 100 MG IV (16:42)
--- NOTE | 2023-04-03 17:31 | CON.PCM.GI_ITS ---
HPI Consult Data Date of Consult: 04/03/23 HPI Narrative Reason for Consultation: Abdominal pain HPI Narrative: YENNI ALVARADO, is a 37 F who presents with abdominal pain. She recently was discharged from the hospital with a diagnosis of acute gallstone pancreatitis secondary to choledocholithiasis. She has a past medical history of h ypothyroidism, ADHD, cholecystectomy in 2005 who presented to [facility] ED 04/03/2023 with upper abdominal pain that was sharp and squeezing in nature. Recently was admitted 03/30 through 04/02 for acute gallstone pancreatitis due to choledocholithiasis. She had ERCP 04/02/2023 and had temporary stent placed. She was feeling much better but woke up with sudden onset of abdominal pain and nausea at 4:30 AM. Reports pain felt similar to the pain requiring admission. AST is elevated at 58 which is lower than yesterday. ALT is elevated at 227 which is also lower than yesterday. Her lipase is elevated at 1259. Her previous lipase was 1458 when she was admitted previously. White blood cell count 20.7 which is up from 7.7 yesterday with left shift however patient status post procedure. Patient given morphine without significant relief and hospitalist contacted for admission. She reports the pain started suddenly at 430 this morning that is squeezing and significant in nature, she has received 8 of morphine with no significant relief in her pain. Also has nausea with no emesis and Zofran has been helpful for this, did have a normal bowel movement since last night and no diarrhea. Has no fevers or chills or other acute complaints. [facility] Medical History Acute pancreatitis Choledochocele Former smoker Hypothyroidism Pancreatitis Home Medications dextroamphetamine-amphetamine ER 15 mg 24hr capsule,extend release 15 mg PO BID 03/05/21 [History Last Taken Unknown] levothyroxine 25 mcg tablet 25 mcg PO DAILY 03/30/23 [History Last Taken Unknown] levofloxacin 500 mg tablet 500 mg PO DAILY 3 days #3 tabs 04/02/23 [Rx Last Taken Unknown] ondansetron HCl 4 mg tablet 4 mg PO Q6H PRN nausea and vomiting #60 tabs 04/03/23 [Rx Last Taken Unknown] Allergy/AdvReac Type Severity Reaction Status Date / Time Penicillins Allergy Severe Rash Verified 04/03/23 12:16 Surgical History History of cholecystectomy Social History Smoking Status: Former smoker ROS ROS Narrative General: Denies fever/chills HENT: Denies headache, denies stuffy nose, denies sore throat EYES: Denies changes in vision Resp: Denies cough, denies shortness of breath Cardiac: Denies chest pain GI: Nausea, epigastric squeezing abdominal pain that radiates to the right : Denies changes in urination Extremity: Denies swelling MSK: Denies weakness Neuro: Denies any numbness/tingling Heme: Denies any bleeding or bruising Skin: Denies rashes Psychiatric: No complaints voiced Physical Exam Narrative General: Alert, oriented, no apparent distress HEENT: Atraumatic, normocephalic Eyes: Anicteric, normal conjunctiva, extraocular movements grossly intact Neck: Supple Respiratory: Clear to auscultation bilaterally, normal respiratory effort Cardiovascular: Regular rate and rhythm GI: Soft, tender in epigastric and right upper quadrants without rebound, guarding, rigidity Extremities: No edema Musculoskeletal: Moving all extremities Neuro: No overt focal neurological deficits Skin: No rashes appreciated Psych: Cooperative Lab / Micro Data 04/03/23 13:36 04/03/23 13:36 Labs: Laboratory Results - last 24 hr 04/03/23 13:36: WBC 20.7 H, RBC 3.94 L, Hgb 11.4 L, Hct 34.3 L, MCV 87.1, MCH 28.9, MCHC 33.2, RDW Std Deviation 40.1, RDW Coeff of Lydia 12.5, Plt Count 348, MPV 8.8, Immature Gran % (Auto) 0.700, Neut % (Auto) 81.0 H, Lymph % (Auto) 13.5 L, [place] % (Auto) 4.6, Eos % (Auto) 0.0, Baso % (Auto) 0.2, Absolute Neuts (auto) 16.8 H, Absolute Lymphs (auto) 2.79, Nucleated RBC % 0, Sodium 139, Potassium 3.6, Chloride 108 H, Carbon Dioxide 25.0, Anion Gap 6, BUN 5 L, Creatinine 0.65, Est GFR (MDRD) Af Amer 132, Est GFR (MDRD) Non-Af 109, BUN/Creatinine Ratio 7.7 L, Glucose 131 H, Calcium 8.7, Total Bilirubin 0.50, AST 58 H, ALT 227 H, Alkaline Phosphatase 62, Total Protein 6.9, Albumin 3.4, Globulin 3.5, Albumin/Globulin Ratio 1.0, Lipase 1259 H, Serum , Qual NEGATIVE Assessment & Plan Assessment/Plan (1) History of biliary duct stent placement: (2) History of gallstones: (3) Acute gallstone pancreatitis: (4) Hypothyroidism: PLAN: Plan 37-year-old with past medical history of cholecystitis status postcholecystectomy recently presented with acute gallstone pancreatitis status post ERCP with stone removal and stent placement who comes back in with recurrent pancreatitis. Likely etiology is retained stone that was not seen on recent occlusion cholangiogram. She has very mild pancreatitis me that her hematocrit is 34. -Recurrence of symptoms that started at 4:30 AM -Patient had ERCP 04/02 which showed the entire main bile duct was markedly dilated with stone causing obstruction, removal not accomplished the stent inserted and biliary sphincterotomy was performed, biliary tree was swept and left main hepatic duct was dilated with 1 temporary stent placed in common bile duct -Recommend to give 2 L of LR for 3L total of bolus' and then start 250/hr -I's and O's, daily weights -N.p.o. -Continue her Levaquin but as IV, suspect elevated white blood cell count more likely due to procedure then suddenly new infection -She may need ERCP with spyglass Charges/Coding Visit Charges Inpatient E&M: 94585 Init Hosp L3
[2023-04-03] MEDS: Ketorolac 30 MG/ML Syringe IV (18:02)
--- OUTSIDE RECORDS SUMMARY | 2023-04-03 19:26 | XMS RPT_ITS | CCD ---
Author Name Unknown Address [address] [place] [address] Organization [facility] Care Team Providers Care Crab Meat Processor Name Role Phone NELIDA WEI Unavailable Unavailable MATTI CESPEDES (PHARMACEUTICAL PLANT OPERATOR) Unavailable Fiorva crystal TOMLIN APRN - PHARMACEUTICAL PLANT OPERATORSHARAN [facility] NITIN COTTRELLN-PHARMACEUTICAL PLANT OPERATORKAMILAH Attending Jada TOMLIN CARNIVAL WORKER - PHARMACEUTICAL PLANT OPERATOR, SHARAN Howard Primary Care U navailable Allergies Allergy Classification Reported Allergen(s) Allergy Type Date of Onset Reaction(s) Facility (1 source) Penicillins; Translations: [PENICILLINS] Propensity to adverse reactions to drug (disorder) [address] [facility] Repository (1 source) Penicillin; Translations: [penicillins] Drug Allergy Eruption of skin (disorder) [facility] Medications Current Medications Medication Drug Class(es) Dates Sig (Normalized) Sig (Original) cholecalciferol 1.25 mg oral capsule (1 source) Vitamin D Start: 10-09-2022 End: 04-07-2023 cholecalciferol 1250 mcg (50,000 intl units) oral capsule Dose : 50,000 International_Unit = 1 cap(s), Oral, qmonth, # 4 cap(s), 1 Refill(s), Pharmacy: [facility], Vitamin D deficiency, 162, cm, 10/09/22 7:59:00 EDT, Height, kg, 10/09/22 7:59:00 EDT, Dosing Weight Start Date: 10/09/22 Stop Date: 04/07/23 Status: Ordered escitalopram 10 mg oral tablet (1 source) Serotonin Reuptake Inhibitor Start: 01-08-2023 End: 04-08-2023 Lexapro 10 mg oral tablet Dose : 10 mg = 1 tab(s), Oral, qDay, may change to generic, # 90 tab(s), 0 Refill(s), Pharmacy: [facility], RAMONITA (generalized anxiety disorder), 163.5, cm, 01/08/23 8:45:00 EST, Height, kg, 01/08/23 8:45:00 EST, Dosing Weight Start Date: 01/08/23 Stop Date: 04/08/23 Status: Ordered levothyroxine sodium 0.025 mg oral tablet (1 source) l-Thyroxine Start: 10-09-2022 End: 04-07-2023 levothyroxine 25 mcg (0.025 mg) oral tablet Dose : 25 mcg = 1 tab(s), Oral, qDay, # 90 tab(s), 1 Refill(s), Pharmacy: [facility], Hypothyroidism in adult, 162, cm, [...] generic, # 60 cap(s), 0 Refill(s), Pharmacy: [facility] ADD (attention deficit disorder), 163.5, cm, 01/08/23 [...] Da te Episodic/Chronic Unclassified (1 source) [facility] STYLIST APPRENTICE SCREENING Onset: 07-17-2017 Results Test Name Value Interpretation Reference Range Facil ity Encounters Encounter Date Encounter Type Care Provider Facility Start: 02-08-2023 End: 02-13-2023 ambulatory KAMILAH TAVERAS CARNIVAL WORKER-PHARMACEUTICAL PLANT OPERATOR Facility:B Start: 02-08-2023 End: 02-12-2023 Outreach Lab KAMILAH TAVERAS CARNIVAL WORKER-PHARMACEUTICAL PLANT OPERATOR [facility] Start: 11-14-2017 End: 11-15-2017 Patient encounter MATTI (PHARMACEUTICAL PLANT OPERATOR) [facility] Start: 07-17-2017 Ambulatory NELIDA Howard WEI Facility: [facility] Procedures Date Procedure Procedure Detail Performing Clinician Start: 02-13-2008 section KAMILAHMONI TAVERAS CARNIVAL WORKER-PHARMACEUTICAL PLANT OPERATOR Cholecystectomy KAMILAHMONI BARCENAS Y CARNIVAL WORKER-PHARMACEUTICAL PLANT OPERATOR Tonsillectomy KAMILAH TAVERAS CARNIVAL WORKER-PHARMACEUTICAL PLANT OPERATOR Immunizations Immunization Date Immunization Notes Care Provider Fa cility 12-16-2021 influenza virus vaccine, unspecified formulation KAMILAH TAVERAS CARNIVAL WORKER-PHARMACEUTICAL PLANT OPERATOR [facility] 01-13-2021 influenza, injectabl e, quadrivalent, contains preservative; Translations: [Fluarix PF Quadrivalent ] KAMILAH TAVERAS CARNIVAL WORKER-PHARMACEUTICAL PLANT OPERATOR [facility] 03-03-2020 SARS-CoV-2 mRNA (tozinameran) vaccine KAMILAH TAVERAS CARNIVAL WORKER-PHARMACEUTICAL PLANT OPERATOR [facility] Payers Date Payer Category Payer Unknown [id number] 1985 Unknown [id number] Self-pay Social History Date Type Detail Facility Start: 01-08-2023 Tobacco smoking status Ex-smoker (fi nding) [facility] + Plan note LaboratoryRadiology Note Date & Type Note Facility Evaluation + Plan note Future Appointments Appointment Date:04/09/2023 08:20:00 AM Scheduled Provider:SHARAN TOMLIN APRN, CNP Location:[facility] Appointment Type:PC OV Controlled Medication Diagnostic Tests PendingHPV Screen, DNA Probe 02/08/23 Future Scheduled TestsThyroid Stimulating Hormone 01/09/23Free T4 01/09/23Complete Blood Count 01/09/23Lipid Profile 01/09/23Vitamin D Level 01/09/23Complete Metabolic Panel 01/09/23MA Mammo Diagnostic Bilateral w/Arron 02/08/23US Breast Left Complete 02/08/23 [facility] course Narrative Note Date & Type Note Facility Hospital course Narrative No data available for this section [facility] Discharge instructions Note Date & Type Note Facility Hospital Discharge instructions No data available for this section [facility] Progress note Note Date & Type Note Facility Progress note No data available for this section [facility] Summary Purpose Family History No Family History Records FoundNo Family History Records Found No data available for this section No Family History Records Found Advance Directives No Advanced Directives Records FoundNo Advanced Directives Records FoundNo Advanced Directives Records Found Additional Source Comments INFORMATION SOURCE (unrecogn ized section and content) DATE CREATED AUTHOR AUTHOR'S ORGANIZ ATION 12/13/2017 [facility] DATE CREATED AUTHOR AUTHOR'S ORGANIZ ATION 02/27/2023 [facility] ([place]) Patient Care team informatio n (unrecognized section and content) Care Team Personnel Name: SHARAN TOMLIN APRN, CNP Position: P4 Advanced Digital Advisor Member Role: Primary Care Physician Address: Address: [address] [place] [address]- [place] Care Team Related Persons Name: SAHRA [...] BE BASED ON THE PRIMARY CLINICAL RECORDS. [facility]. provides no warranty or guarantee of the accuracy or completeness of information in this document.
[2023-04-03 20:00] VITALS: BP 110/65; PULSE 67; RESP 16; TEMP 36.6; O2SAT 97
--- OUTSIDE RECORDS SUMMARY | 2023-04-03 20:03 | XMS RPT_ITS | CCD ---
Author Name Unknown Address [address] [place] [address] Organization [facility] Care Team Providers Care Underwriting Clerk Name Role Phone NELIDA WEI Unavailable Unavailable MATTI CESPEDES (POSTAGE MACHINE OPERATOR) Unavailable Fiorva crystal TOMLIN APRN - POSTAGE MACHINE OPERATORSHARAN [facility] NITIN COTTRELLN-POSTAGE MACHINE OPERATORKAMILAH Attending Jada TOMLIN OIL INSPECTOR - POSTAGE MACHINE OPERATOR, SHARAN Howard Primary Care U navailable Allergies Allergy Classification Reported Allergen(s) Allergy Type Date of Onset Reaction(s) Facility (1 source) Penicillins; Translations: [PENICILLINS] Propensity to adverse reactions to drug (disorder) [facility] Repository (1 source) Penicillin; Translations: [penicillins] Drug Allergy Eruption of skin (disorder) [facility] Medications Current Medications Medication Drug Class(es) Dates Sig (Normalized) Sig (Original) cholecalciferol 1.25 mg oral capsule (1 source) Vitamin D Start: 10-09-2022 End: 04-07-2023 cholecalciferol 1250 mcg (50,000 intl units) oral capsule Dose : 50,000 International_Unit = 1 cap(s), Oral, qmonth, # 4 cap(s), 1 Refill(s), Pharmacy: [facility], Vitamin D deficiency, 162, cm, 10/09/22 7:59:00 EDT, Height, kg, 10/09/22 7:59:00 EDT, Dosing Weight Start Date: 10/09/22 Stop Date: 04/07/23 Status: Ordered escitalopram 10 mg oral tablet (1 source) Serotonin Reuptake Inhibitor Start: 01-08-2023 End: 04-08-2023 Lexapro 10 mg oral tablet Dose : 10 mg = 1 tab(s), Oral, qDay, may change to generic, # 90 tab(s), 0 Refill(s), Pharmacy: [facility], RAMONITA (generalized anxiety disorder), 163.5, cm, 01/08/23 8:45:00 EST, Height, kg, 01/08/23 8:45:00 EST, Dosing Weight Start Date: 01/08/23 Stop Date: 04/08/23 Status: Ordered levothyroxine sodium 0.025 mg oral tablet (1 source) l-Thyroxine Start: 10-09-2022 End: 04-07-2023 levothyroxine 25 mcg (0.025 mg) oral tablet Dose : 25 mcg = 1 tab(s), Oral, qDay, # 90 tab(s), 1 Refill(s), Pharmacy: [facility], Hypothyroidism in adult, 162, cm, [...] generic, # 60 cap(s), 0 Refill(s), Pharmacy: [facility] ADD (attention deficit disorder), 163.5, cm, 01/08/23 [...] Da te Episodic/Chronic Unclassified (1 source) [facility] PLOW HOLDER SCREENING Onset: 07-17-2017 Results Test Name Value Interpretation Reference Range Facil ity Encounters Encounter Date Encounter Type Care Provider Facility Start: 02-08-2023 End: 02-13-2023 ambulatory KAMILAH TAVERAS OIL INSPECTOR-POSTAGE MACHINE OPERATOR Facility:[facility] Start: 02-08-2023 End: 02-12-2023 Outreach Lab KAMILAH TAVERAS OIL INSPECTOR-POSTAGE MACHINE OPERATOR [facility] Start: 11-14-2017 End: 11-15-2017 Patient encounter MATTI (POSTAGE MACHINE OPERATOR) [facility] Start: 07-17-2017 Ambulatory NELIDA Howard WEI Facility: [facility] Procedures Date Procedure Procedure Detail Performing Clinician Start: 02-13-2008 section KAMILAHMONI TAVERAS OIL INSPECTOR-POSTAGE MACHINE OPERATOR Cholecystectomy KAMILAHMONI BARCENAS Y OIL INSPECTOR-POSTAGE MACHINE OPERATOR Tonsillectomy KAMILAH TAVERAS OIL INSPECTOR-POSTAGE MACHINE OPERATOR Immunizations Immunization Date Immunization Notes Care Provider Fa cility 12-16-2021 influenza virus vaccine, unspecified formulation KAMILAH TAVERAS OIL INSPECTOR-POSTAGE MACHINE OPERATOR [facility] 01-13-2021 influenza, injectabl e, quadrivalent, contains preservative; Translations: [Fluarix PF Quadrivalent ] KAMILAH TAVERAS OIL INSPECTOR-POSTAGE MACHINE OPERATOR [facility] [place] 03-03-2020 SARS-CoV-2 mRNA (tozinameran) vaccine KAMILAH TAVERAS OIL INSPECTOR-POSTAGE MACHINE OPERATOR [facility] Payers Date Payer Category Payer Unknown [id number] 1985 Unknown [id number] Self-pay Social History Date Type Detail Facility Start: 01-08-2023 Tobacco smoking status Ex-smoker (fi nding) [facility] + Plan note LaboratoryRadiology Note Date & Type Note Facility Evaluation + Plan note Future Appointments Appointment Date:04/09/2023 08:20:00 AM Scheduled Provider:SHARAN TOMLIN APRN, CNP Location:[facility] Appointment Type:PC OV Controlled Medication Diagnostic Tests PendingHPV Screen, DNA Probe 02/08/23 Future Scheduled TestsThyroid Stimulating Hormone 01/09/23Free T4 01/09/23Complete Blood Count 01/09/23Lipid Profile 01/09/23Vitamin D Level 01/09/23Complete Metabolic Panel 01/09/23MA Mammo Diagnostic Bilateral w/Arron 02/08/23US Breast Left Complete 02/08/23 [facility] Hospital course Narrative Note Date & Type Note Facility Hospital course Narrative No data available for this section [facility] Hospital Discharge instructions Note Date & Type Note Facility Hospital Discharge instructions No data available for this section [facility] Progress note Note Date & Type Note Facility Progress note No data available for this section [facility] Summary Purpose Family History No Family History Records FoundNo Family History Records Found No data available for this section No Family History Records Found Advance Directives No Advanced Directives Records FoundNo Advanced Directives Records FoundNo Advanced Directives Records Found Additional Source Comments INFORMATION SOURCE (unrecogn ized section and content) DATE CREATED AUTHOR AUTHOR'S ORGANIZ ATION 12/13/2017 [facility] DATE CREATED AUTHOR AUTHOR'S ORGANIZ ATION 02/27/2023 [facility] ([place]) Patient Care team informatio n (unrecognized section and content) Care Team Personnel Name: SHARAN TOMLIN APRN, CNP Position: P4 Advanced Finishing Manager Member Role: Primary Care Physician Address: Address: [address] [place] [address]- [place] Care Team Related Persons Name: SAHRA [...] BE BASED ON THE PRIMARY CLINICAL RECORDS. [facility]. provides no warranty or guarantee of the accuracy or completeness of information in this document.
--- OUTSIDE RECORDS SUMMARY | 2023-04-03 20:19 | XMS RPT_ITS | CCD ---
Author Name Unknown Address [address] [place] [address] Organization [facility] Care Team Providers Care Candy Puller Name Role Phone NELIDA WEI Unavailable Unavailable MATTI CESPEDES (WIND PLANT MANAGER) Unavailable Fiorva crystal TOMLIN APRN - WIND PLANT MANAGERSHARAN [facility] NITIN COTTRELLN-WIND PLANT MANAGERKAMILAH Attending Jada TOMLIN BAR MANAGER - WIND PLANT MANAGER, SHARAN Howard Primary Care U navailable Allergies Allergy Classification Reported Allergen(s) Allergy Type Date of Onset Reaction(s) Facility (1 source) Penicillins; Translations: [PENICILLINS] Propensity to adverse reactions to drug (disorder) [facility] Repository (1 source) Penicillin; Translations: [penicillins] Drug Allergy Eruption of skin (disorder) [facility] Medications Current Medications Medication Drug Class(es) Dates Sig (Normalized) Sig (Original) cholecalciferol 1.25 mg oral capsule (1 source) Vitamin D Start: 10-09-2022 End: 04-07-2023 cholecalciferol 1250 mcg (50,000 intl units) oral capsule Dose : 50,000 International_Unit = 1 cap(s), Oral, qmonth, # 4 cap(s), 1 Refill(s), [facility], Vitamin D deficiency, [...] generic, # 90 tab(s), 0 Refill(s), Pharmacy: [facility], RAMONITA (generalized anxiety disorder), 163.5, cm, 01/08/23 8:45:00 EST, Height, kg, 01/08/23 8:45:00 EST, Dosing Weight Start Date: 01/08/23 Stop Date: 04/08/23 Status: Ordered levothyroxine sodium 0.025 mg oral tablet (1 source) l-Thyroxine Start: 10-09-2022 End: 04-07-2023 levothyroxine 25 mcg (0.025 mg) oral tablet Dose : 25 mcg = 1 tab(s), Oral, qDay, # 90 tab(s), 1 Refill(s), Pharmacy: [facility], Hypothyroidism in adult, [...] generic, # 60 cap(s), 0 Refill(s), Pharmacy: [facility] ADD (attention deficit disorder), 163.5, cm, 01/08/23 [...] Da te Episodic/Chronic Unclassified (1 source) [facility] CONCRETE JOURNEYMAN SCREENING Onset: 07-17-2017 Results Test Name Value Interpretation Reference Range Facil ity Encounters Encounter Date Encounter Type Care Provider Facility Start: 02-08-2023 End: 02-13-2023 ambulatory KAMILAH TAVERAS BAR MANAGER-WIND PLANT MANAGER Facility:[facility] Start: 02-08-2023 End: 02-12-2023 Outreach Lab KAMILAH TAVERAS BAR MANAGER-WIND PLANT MANAGER [facility] Start: 11-14-2017 End: 11-15-2017 Patient encounter MATTI (WIND PLANT MANAGER) [facility] Start: 07-17-2017 Ambulatory NELIDA Howard WEI Facility: [facility] Procedures Date Procedure Procedure Detail Performing Clinician Start: 02-13-2008 section KAMILAHMONI TAVERAS BAR MANAGER-WIND PLANT MANAGER Cholecystectomy KAMILAHMONI BARCENAS Y BAR MANAGER-WIND PLANT MANAGER Tonsillectomy KAMILAH TAVERAS BAR MANAGER-WIND PLANT MANAGER Immunizations Immunization Date Immunization Notes Care Provider Fa cility 12-16-2021 influenza virus vaccine, unspecified formulation KAMILAH TAVERAS BAR MANAGER-WIND PLANT MANAGER [facility] 01-13-2021 influenza, injectabl e, quadrivalent, contains preservative; Translations: [Fluarix PF Quadrivalent ] KAMILAH TAVERAS BAR MANAGER-WIND PLANT MANAGER [facility] [place] 03-03-2020 SARS-CoV-2 mRNA (tozinameran) vaccine KAMILAH TAVERAS BAR MANAGER-WIND PLANT MANAGER [facility] Payers Date Payer Category Payer Unknown [id number] 1985 Unknown [id number] Self-pay Social History Date Type Detail Facility Start: 01-08-2023 Tobacco smoking status Ex-smoker (fi nding) [facility] Evaluation + Plan note LaboratoryRadiology Note Date & Type Note Facility Evaluation + Plan note Future Appointments Appointment Date:04/09/2023 08:20:00 AM Scheduled Provider:SHARAN TOMLIN APRN, CNP Location:[facility] Appointment Type:PC OV Controlled Medication Diagnostic Tests PendingHPV Screen, DNA Probe 02/08/23 Future Scheduled TestsThyroid Stimulating Hormone 01/09/23Free T4 01/09/23Complete Blood Count 01/09/23Lipid Profile 01/09/23Vitamin D Level 01/09/23Complete Metabolic Panel 01/09/23MA Mammo Diagnostic Bilateral w/Arron 02/08/23US Breast Left Complete 02/08/23 [facility] Hospital course Narrative Note Date & Type Note Facility Hospital course Narrative No data available for this section [facility] Hospital Discharge instructions Note Date & Type Note Facility Hospital Discharge instructions No data available for this section [facility] Progress note Note Date & Type Note Facility Progress note No data available for this section [facility] Summary Purpose Family History No Family History Records FoundNo Family History Records Found No data available for this section No Family History Records Found Advance Directives No Advanced Directives Records FoundNo Advanced Directives Records FoundNo Advanced Directives Records Found Additional Source Comments INFORMATION SOURCE (unrecogn ized section and content) DATE CREATED AUTHOR AUTHOR'S ORGANIZ ATION 12/13/2017 [facility] DATE CREATED AUTHOR AUTHOR'S ORGANIZ ATION 02/27/2023 [facility] ([place]) Patient Care team informatio n (unrecognized section and content) Care Team Personnel Name: SHARAN TOMLIN APRN, CNP Position: P4 Advanced Oil Prospecting Observer Member Role: Primary Care Physician Address: Address: [address] [facility] [address] [facility] [place] [address]- [place] Care Team Related Persons Name: SAHRA [...] BE BASED ON THE PRIMARY CLINICAL RECORDS. [facility]. provides no warranty or guarantee of the accuracy or completeness of information in this document.
[2023-04-03] MEDS: morphine 10 MG/ML Syringe 6 MG IV (21:11)
[2023-04-04] MEDS: proCHLORPERazine 10 MG/2 ML Vial 5 MG IV ×2 (00:04→08:09)
[2023-04-04] MEDS: morphine 10 MG/ML Syringe 6 MG IV ×2 (00:12→20:07)
[2023-04-04] MEDS: Lactated Ringers 1,000 ML 250 ML IV ×5 (01:34→18:02)
[2023-04-04 02:00] VITALS: BP 117/61; PULSE 72; RESP 16; TEMP 36.6; O2SAT 94
[2023-04-04] MEDS: Levothyroxine 25 MCG TABLET PO (05:37)
[2023-04-04] MEDS: Ondansetron 4 MG/2 ML Vial IV ×2 (05:41→20:06)
[2023-04-04] MEDS: Morphine 4 MG/ML Syringe IV (05:42)
[2023-04-04 06:00] VITALS: BMI 36.7
[2023-04-04 08:02] VITALS: BP 147/78; PULSE 80; RESP 18; TEMP 36.7; O2SAT 98
[2023-04-04] MEDS: 0.9% Saline Lock 10 ML Syringe IV ×2 (08:09→18:02)
[2023-04-04 08:12] LABS: Absolute Lymphocyte Count 2.71 X10^3/uL (0.83-4.51); Absolute Neutrophil Count 8.9 X10^3/uL (2.0-7.7); Basophil# 0.04 X10^3/uL; Basophil% 0.3 % (0-1); Eosinophil# 0.28 X10^3/uL; Eosinophils% 2.2 % (0-5); Hematocrit 32.8 % (37-47); Hemoglobin 10.6 g/dL (12.0-15.0); Lymphocyte # 2.71 X10^3/ul (0.83-4.51); Lymphocyte % 21.4 % (19-41); Mean Corp Hgb Conc 32.3 g/dL (32-36); Mean Corpuscular Hgb 28.6 pg (27.0-32.0); Mean Corpuscular Volume 88.4 fL (81-99); Mean Platelet Vol. 9.2 fl (6.2-12.0); Monocyte# 0.73 X10^3/uL; Monocyte% 5.8 % (0-10); NRBC Flagged by Analyzer 0 % (0-5); Neutrophil # 8.86 X10^3/uL (2.7-7.7); Neutrophil % 69.9 % (47-70); Platelet Count 312 K/mm3 (150-450); RBC Distribution Width CV 12.9 % (11.6-14.6); RBC Distribution Width SD 41.8 fl (35.1-43.9); Red Blood Count 3.71 M/mm3 (4.2-5.4); White Blood Count 12.7 K/mm3 (4.4-11.0)
[2023-04-04 08:51] LABS: ALB/GLOB Ratio 0.9 RATIO (0.9-2.4); AST(SGOT) 50 U/L (15-37); Alanine Aminotransfer ALT/SGPT 180 U/L (13-56); Albumin, Serum 3.2 g/dL (3.2-5.0); Alkaline Phosphatase 56 U/L (45-117); Anion Gap 4 (5-15); BUN 4 mg/dL (7-18); BUN/Creat Ratio 6.7 RATIO (10-20); Calcium,Total 8.9 mg/dL (8.5-10.1); Chloride 112 mmol/L (98-107); EST Glomerular Filtration Rate 120 mL/min (>60); Erythrocyte Sedimentation Rate 15 mm/hr (0-30); Est Glom Filt Rate - Afr Amer 145 mL/min (>60); Estimated Creatinine Clearance 145.23 ml/min; Globulin 3.4 g/dL (2.2-4.2); Glucose 83 mg/dL (74-106); Magnesium 1.9 mg/dL (1.6-2.6); Potassium 3.4 mmol/L (3.5-5.1); Protein, Total 6.6 g/dL (6.4-8.2); Sodium Level 141 mmol/L (136-145)
--- NOTE | 2023-04-04 09:15 | CASEMGMT ---
BO CM Readmission Note Previous Admission: 03/30/23 ? 04/02/23 Diagnosis: acute gallstone pancreatitis secondary to choledocholithiasis DC Disposition: Home with self care F/U in 2 weeks with PCP Current Admission: Admitted Current Diagnosis: ABD pain Pt. was discharged home with self care to see her PCP in 2 weeks for follow-up. Pt had an ERCP with stent placement. Pts pain was controlled prior to DC and was ordered 3 days of PO Levaquin. Pt presented back to the ER on 04/03/23 with worsening abd pain, GI was consulted. Pt. states she took all medications as prescribed. Pt. denies having any additional needs upon discharge at this time. DC PLAN: Home with self care. Pt is from home with spouse, independent at baseline.
[2023-04-04] MEDS: levoFLOXacin IV 500 MG/100 ML BAG 100 MG IV (09:31)
[2023-04-04] MEDS: Ketorolac 30 MG/ML Syringe IV ×2 (09:31→15:49)
[2023-04-04 09:33] LABS: Amylase 438 U/L (25-115); Lipase 580 U/L (13-75)
--- NOTE | 2023-04-04 12:37 | OP.ERCP_ITS ---
Patient Name: Marilynn Hyde Procedure Date: 04/04/2023 12:29 PM Date of : 1985 Age: 37 Procedure: ERCP Indications: Common bile duct stone(s), Stent removal Providers: Grzegorz Pickens DO Medicines: Monitored Anesthesia Care Patient Profile: This is a 37 year old female. Refer to note in patient chart for documentation of history and physical. Patient has symptoms of acute right upper quadrant abdominal pain. Her most recent ERCP for biliary evaluation, ERCP for stent and ERCP for stone removal was within the past three months. She is status post laparoscopic cholecystectomy within the past three months. Complications: No immediate complications. Procedure: Pre-Anesthesia Assessment: - Prior to the procedure, a History and Physical was performed, and patient medications and allergies were reviewed. The patient is competent. The risks and benefits of the procedure and the sedation options and risks were discussed with the patient. All questions were answered and informed consent was obtained. Patient identification and proposed procedure were verified by the physician in the pre-procedure area. Mental Status Examination: alert and oriented. Airway Examination: normal oropharyngeal airway and neck mobility. Respiratory Examination: clear to auscultation. CV Examination: normal. Prophylactic Antibiotics: The patient does not require prophylactic antibiotics. Prior Anticoagulants: The patient has taken no anticoagulant or antiplatelet agents. ASA Grade Assessment: II - A patient with mild systemic disease. After reviewing the risks and benefits, the patient was deemed in satisfactory condition to undergo the procedure. The anesthesia plan was to use monitored anesthesia care (MAC). Immediately prior to administration of medications, the patient was re-assessed for adequacy to receive sedatives. The heart rate, respiratory rate, oxygen saturations, blood pressure, adequacy of pulmonary ventilation, and response to care were monitored throughout the procedure. The physical status of the patient was re-assessed after the procedure. After obtaining informed consent, the scope was passed under direct vision. Throughout the procedure, the patient's blood pressure, pulse, and oxygen saturations were monitored continuously. The Duodenoscope was introduced through the mouth, and advanced to the duodenum and used to inject contrast into the bile duct and ventral pancreatic duct. The ERCP was accomplished without difficulty. The patient tolerated the procedure well. The Duodenoscope was introduced through the mouth, and advanced to the duodenum and used to inject contrast into the bile duct and ventral pancreatic duct. Scope In: 12:55:47 PM Scope Out: 1:36:02 PM Total Procedure Duration Time 0 hours 40 minutes 15 seconds Findings: The drain tile press operator film was normal. The esophagus was successfully intubated under direct vision. The scope was advanced to a normal major papilla in the descending duodenum without detailed examination of the pharynx, larynx and associated structures, and upper GI tract. The upper GI tract was grossly normal. The bile duct was deeply cannulated with the short-nosed traction sphincterotome. Contrast was injected. I personally interpreted the bile duct and pancreatic duct images. There was brisk flow of contrast through the ducts. Image quality was excellent. Contrast extended to the entire biliary tree. Opacification of the entire biliary tree except for the cystic duct and gallbladder was successful. The maximum diameter of the ducts was 8 mm. The lower third of the main bile duct contained multiple stones, the largest of which was 12 mm in diameter. The main bile duct was diffusely dilated, with a stone causing an obstruction. The largest diameter was 8 mm. A cholecystectomy had been performed. A straight Roadrunner wire was passed into the biliary tree. A 5 mm biliary sphincterotomy was made with a traction (standard) sphincterotome using ERBE electrocautery. There was no post-sphincterotomy bleeding. The biliary tree was swept with a 12 mm balloon starting at the bifurcation. Sludge was swept from the duct. All stones were removed. One stent was removed from the biliary tree using a snare. The stent was found to be partially occluded via the water column test. The bile duct was explored endoscopically using the [employer] direct visualization system. The SpyScope was advanced to the bifurcation. Visibility with the scope was excellent. The main bile duct contained multiple stones, the largest of which was 6 mm in diameter. Electrohydraulic lithotripsy was successful. One stent was removed from the biliary tree using a snare. Impression: - The entire main bile duct was dilated, with a stone causing an obstruction. - The patient has had a cholecystectomy. - Choledocholithiasis was found. Complete removal was accomplished by biliary sphincterotomy and balloon extraction. - A biliary sphincterotomy was performed. - The biliary tree was swept. - One stent was removed from the biliary tree. Procedure Code(s): --- Professional --- 13765, Endoscopic retrograde cholangiopancreatography (ERCP); with destruction of calculi, any method (eg, mechanical, electrohydraulic, lithotripsy) 88990, Endoscopic retrograde cholangiopancreatography (ERCP); with removal of foreign body(s) or stent(s) from biliary/pancreatic duct(s) 14578, Endoscopic retrograde cholangiopancreatography (ERCP); with sphincterotomy/papillotomy 88519, Endoscopic cannulation of papilla with direct visualization of pancreatic/common bile duct(s) (List separately in addition to code(s) for primary procedure) 19920, 26, Combined endoscopic catheterization of the biliary and pancreatic ductal systems, radiological supervision and interpretation CPT copyright 2021 [employer]. All rights reserved. The codes documented in this report are preliminary and upon equipment man review may be revised to meet current compliance requirements. Grzegorz Pickens DO 04/04/2023 12:36:41 PM This report has been signed electronically. Number of Addenda: 1 Note Initiated On: 04/04/2023 12:29 PM Addendum Number: 1 Addendum Date: 04/04/2023 12:46:24 PM This note is for the wrong patient. Grzegorz Pickens DO 04/04/2023 12:46:43 PM This report has been signed electronically.
--- NOTE | 2023-04-04 12:37 | OP.CCLET_ITS ---
04/05/2023 Dann Stokes Re : ERCP procedure for Marilynn Hawthorner Divya This procedure was performed on Tuesday, April 04, 2023. My impressions and recommendations are as follows: Impressions : - The entire main bile duct was dilated, with a stone causing an obstruction. - The patient has had a cholecystectomy. - Choledocholithiasis was found. Complete removal was accomplished by biliary sphincterotomy and balloon extraction. - A biliary sphincterotomy was performed. - The biliary tree was swept. - One stent was removed from the biliary tree. Recommendations : My findings are described in the full procedure note, which is enclosed. If I can be of further assistance, please feel free to contact me at . Sincerely, Grzegorz Pickens, 04/04/2023 12:36:41 PM This report has been signed electronically.
--- NOTE | 2023-04-04 13:59 | PN_ITS ---
Subjective Subjective Patient seen and examined. She said her abdominal pain was constant at around 5-6. She denied any nausea or vomiting. Review of systems otherwise negative. She is due for repeat ERCP tomorrow. Objective Data Objective Data Vital Signs: Vital Signs Temp Pulse Resp BP Pulse Ox O2 Del Method 98.1 F 80 18 147/78 H 98 Room Air 04/04/23 08:02 04/04/23 08:02 04/04/23 08:02 04/04/23 08:02 04/04/23 08:02 04/04/23 08:02 Oxygen Delivery Method Room Air Weight: 214 lb 1.102 oz Body Mass Index (BMI) 36.7 Intake & Output: Intake and Output for Last 24 Hours 04/02/23 04/03/23 04/04/23 23:59 23:59 23:59 Intake Total 4095.83 / 4095.83 3104.17 / 3104.17 Output Total 825 / 825 Balance 4095.83 / 3670.83 2279.17 / 2279.17 Lab / Micro Data 04/04/23 07:05 04/04/23 07:05 Labs: Laboratory Results - last 24 hr 04/03/23 13:36: Sodium 139, Potassium 3.6, Chloride 108 H, Carbon Dioxide 25.0, Anion Gap 6, BUN 5 L, Creatinine 0.65, Est GFR (MDRD) Af Amer 132, Est GFR (MDRD) Non-Af 109, BUN/Creatinine Ratio 7.7 L, Glucose 131 H, Calcium 8.7, Total Bilirubin 0.50, AST 58 H, ALT 227 H, Alkaline Phosphatase 62, Total Protein 6.9, Albumin 3.4, Globulin 3.5, Albumin/Globulin Ratio 1.0, Lipase 1259 H 04/04/23 07:05: WBC 12.7 H, RBC 3.71 L, Hgb 10.6 L, Hct 32.8 L, MCV 88.4, MCH 28.6, MCHC 32.3, RDW Std Deviation 41.8, RDW Coeff of Lydia 12.9, Plt Count 312, MPV 9.2, Immature Gran % (Auto) 0.400, Neut % (Auto) 69.9, Lymph % (Auto) 21.4, [place] % (Auto) 5.8, Eos % (Auto) 2.2, Baso % (Auto) 0.3, Absolute Neuts (auto) 8.9 H, Absolute Lymphs (auto) 2.71, Nucleated RBC % 0, ESR 15, Sodium 141, Potassium 3.4 L, Chloride 112 H, Carbon Dioxide 25.0, Anion Gap 4 L, BUN 4 L, Creatinine 0.60, Estim Creat Clear Calc 145.23, Est GFR (MDRD) Af Amer 145, Est GFR (MDRD) Non-Af 120, BUN/Creatinine Ratio 6.7 L, Glucose 83, Calcium 8.9, Magnesium 1.9, Total Bilirubin 0.40, AST 50 H, ALT 180 H, Alkaline Phosphatase 56, C-React Prot Ext Range 9.90 H, Total Protein 6.6, Albumin 3.2, Globulin 3.4, Albumin/Globulin Ratio 0.9, Amylase 438 H, Lipase 580 H Physical Exam Const alert, oriented x3, no apparent distress and well nourished HEENT normocephalic, head/scalp atraumatic, moist oral mucous membranes and oropharynx normal Eyes PERRL and EOMs intact bilaterally Neck no lymphadenopathy and supple Lymph Lymphatic: no lymphadenopathy noted and no lymphedema noted Resp normal respiratory effort, normal air movement and clear to auscultation bilaterally Cardio regular rate, regular rhythm, S1 normal heart sound, S2 normal heart sound and no murmurs GI GI Narrative: abdomen soft, moderate epigastric tenderness, no guarding or rebound tenderness. Extremity normal capillary refill, no clubbing, cyanosis or edema and no calf tenderness General Extremity: no tenderness to palpation of joints or extremities Skin General Skin Exam: no breakdown Neuro CN's II-XII intact bilaterally, no focal motor deficits and no sensory deficits noted Motor Exam: strength 5/5 throughout Psych thought process normal and cooperative Appearance: appropriate Assessment & Plan Assessment/Plan (1) Acute pancreatitis: QUALIFIERS: Pancreatitis type: unspecified pancreatitis type Acute pancreatitis complication: unspecified Qualified Code(s): K85.90 - Acute pancreatitis without necrosis or infection, unspecified PLAN: Plan #Acute recurrent pancreatitis * was recently admitted for acute pancreatiti and had EGD on 04/02/2023 which showed markedly dilated main bile duct, with a stone causing obstruction and couldn't removed; a stent was inserted and biliary sphincterotomy was performed and biliaty tress was swept; left main hepatic duct was dilated with a 1 temporary stent placed in common bile duct. * she started having abdominal pain again after discharge. Per GI, she may have a stone in the common bile duct still. * Had repeat ERCP today which showed a dilated entir main bile duct, with a stone causing obstruction, with choledocholithiasis which was removed by biliary sphincterotomy and balloon extraction. Stent was removed from biliary tree. * GI on board. * on IV toradol and IV morphine prn for pain. * #Hypothyroidism; on synthroid. #ADHD: on adderall DVT prophylaxis; SCDs Charges/Coding Visit Charges Inpatient E&M: 38290 Subs Hosp L2
[2023-04-04 14:19] VITALS: BP 133/76; PULSE 82; RESP 18; TEMP 36.7; O2SAT 97
[2023-04-04 14:54] LABS: Internal QC Validated? YES +Cl - CLEAR BKGD; Record Kit Lot#,Urine Preg HCG0000718086
[2023-04-04 14:57] LABS: Pregnancy, Urine Negative Negative
--- NOTE | 2023-04-04 16:45 | EX.PCM.PN.GI ---
Subjective Subjective Patient still has a lot of pain and bloating. She has been on IV fluids. She has been urinating well. She rates her pain at a 5 out of 10 Objective Data Objective Data Vital Signs: Vital Signs Temp Pulse Resp BP Pulse Ox O2 Del Method 98.0 F 82 18 133/76 H 97 Room Air 04/04/23 14:19 04/04/23 14:19 04/04/23 14:19 04/04/23 14:19 04/04/23 14:19 04/04/23 14:19 Oxygen Delivery Method Room Air Weight: 214 lb 1.102 oz Body Mass Index (BMI) 36.7 Intake & Output: Intake and Output for Last 24 Hours 04/02/23 04/03/23 04/04/23 23:59 23:59 23:59 Intake Total 4095.83 / 4095.83 4070.84 / 4070.84 Output Total 2975 / 2975 Balance 4095.83 / 3670.83 1095.84 / 1095.84 Lab / Micro Data 04/04/23 07:05 04/04/23 07:05 Labs: Laboratory Results - last 24 hr 04/04/23 07:05: WBC 12.7 H, RBC 3.71 L, Hgb 10.6 L, Hct 32.8 L, MCV 88.4, MCH 28.6, MCHC 32.3, RDW Std Deviation 41.8, RDW Coeff of Lydia 12.9, Plt Count 312, MPV 9.2, Immature Gran % (Auto) 0.400, Neut % (Auto) 69.9, Lymph % (Auto) 21.4, [place] % (Auto) 5.8, Eos % (Auto) 2.2, Baso % (Auto) 0.3, Absolute Neuts (auto) 8.9 H, Absolute Lymphs (auto) 2.71, Nucleated RBC % 0, ESR 15, Sodium 141, Potassium 3.4 L, Chloride 112 H, Carbon Dioxide 25.0, Anion Gap 4 L, BUN 4 L, Creatinine 0.60, Estim Creat Clear Calc 145.23, Est GFR (MDRD) Af Amer 145, Est GFR (MDRD) Non-Af 120, BUN/Creatinine Ratio 6.7 L, Glucose 83, Calcium 8.9, Magnesium 1.9, Total Bilirubin 0.40, AST 50 H, ALT 180 H, Alkaline Phosphatase 56, C-React Prot Ext Range 9.90 H, Total Protein 6.6, Albumin 3.2, Globulin 3.4, Albumin/Globulin Ratio 0.9, Amylase 438 H, Lipase 580 H 04/04/23 14:25: Urine Test Negative Physical Exam Const alert, oriented x3, no apparent distress and well nourished HEENT normocephalic, head/scalp atraumatic, moist oral mucous membranes and oropharynx normal Eyes PERRL and EOMs intact bilaterally Neck no lymphadenopathy and supple Lymph Lymphatic: no lymphadenopathy noted and no lymphedema noted Resp normal respiratory effort, normal air movement and clear to auscultation bilaterally Cardio regular rate, regular rhythm, S1 normal heart sound, S2 normal heart sound and no murmurs GI GI Narrative: abdomen soft, moderate epigastric tenderness, no guarding or rebound tenderness. Extremity normal capillary refill, no clubbing, cyanosis or edema and no calf tenderness General Extremity: no tenderness to palpation of joints or extremities Skin General Skin Exam: no breakdown Neuro CN's II-XII intact bilaterally, no focal motor deficits and no sensory deficits noted Motor Exam: strength 5/5 throughout Psych thought process normal and cooperative Appearance: appropriate Assessment & Plan Assessment/Plan (1) History of biliary duct stent placement: (2) History of gallstones: (3) Acute gallstone pancreatitis: (4) Hypothyroidism: PLAN: Plan 37-year-old with past medical history of cholecystitis status postcholecystectomy recently presented with acute gallstone pancreatitis status post ERCP with stone removal and stent placement who comes back in with recurrent pancreatitis. Likely etiology is retained stone that was not seen on recent occlusion cholangiogram. She has very mild pancreatitis me that her hematocrit is 34. -Recurrence of symptoms that started at 4:30 AM -Patient had ERCP 04/02 which showed the entire main bile duct was markedly dilated with stone causing obstruction, removal not accomplished the stent inserted and biliary sphincterotomy was performed, biliary tree was swept and left main hepatic duct was dilated with 1 temporary stent placed in common bile duct -Recommend to give 2 L of LR for 3L total of bolus' and then start 250/hr -I's and O's, daily weights -N.p.o. -Continue her Levaquin but as IV, suspect elevated white blood cell count more likely due to procedure then suddenly new infection -She may need ERCP with spyglass 04/04/23-patient is scheduled for ERCP tomorrow with spyglass and lithotripsy of remaining stone in, bile duct. Continue IV fluids and pain medicine for pancreatitis. I will put patient on a clear liquid diet. N.p.o. past midnight.
[2023-04-04] MEDS: Metoclopramide 10 MG/2 ML Vial 5 MG IV (18:02)
[2023-04-04 20:05] VITALS: BP 131/70; PULSE 77; RESP 16; TEMP 36.7; O2SAT 99
[2023-04-05] VITALS (13 sets, daily range): BP systolic 97–141; BP diastolic 58–88; PULSE 62–102; RESP 14–18; TEMP 36.2–37.9; O2SAT 93–100; BMI 36.6; BMI 36.8
[2023-04-05] MEDS: Ketorolac 30 MG/ML Syringe IV ×4 (00:22→23:28)
[2023-04-05] MEDS: Metoclopramide 10 MG/2 ML Vial 5 MG IV ×4 (00:26→23:29)
[2023-04-05] MEDS: Lactated Ringers 1,000 ML 125 ML IV ×4 (00:41→20:53)
[2023-04-05] MEDS: oxyCODONE 5 MG Tablet PO ×5 (00:42→23:29)
[2023-04-05] MEDS: Levothyroxine 25 MCG TABLET PO (00:43)
[2023-04-05 08:05] LABS: Absolute Lymphocyte Count 1.83 X10^3/uL (0.83-4.51); Absolute Neutrophil Count 6.7 X10^3/uL (2.0-7.7); Basophil# 0.02 X10^3/uL; Basophil% 0.2 % (0-1); Eosinophil# 0.39 X10^3/uL; Hematocrit 29.9 % (37-47); Hemoglobin 9.7 g/dL (12.0-15.0); Lymphocyte # 1.83 X10^3/ul (0.83-4.51); Lymphocyte % 18.5 % (19-41); Mean Corp Hgb Conc 32.4 g/dL (32-36); Mean Corpuscular Hgb 28.7 pg (27.0-32.0); Mean Corpuscular Volume 88.5 fL (81-99); Mean Platelet Vol. 9.2 fl (6.2-12.0); Monocyte# 0.91 X10^3/uL; Monocyte% 9.2 % (0-10); NRBC Flagged by Analyzer 0 % (0-5); Neutrophil # 6.69 X10^3/uL (2.7-7.7); Neutrophil % 67.8 % (47-70); Platelet Count 264 K/mm3 (150-450); RBC Distribution Width SD 42.3 fl (35.1-43.9); Red Blood Count 3.38 M/mm3 (4.2-5.4); White Blood Count 9.9 K/mm3 (4.4-11.0)
[2023-04-05 08:30] LABS: ALB/GLOB Ratio 0.9 RATIO (0.9-2.4); AST(SGOT) 24 U/L (15-37); Alanine Aminotransfer ALT/SGPT 121 U/L (13-56); Alkaline Phosphatase 50 U/L (45-117); Amylase 104 U/L (25-115); Anion Gap 4 (5-15); BUN 4 mg/dL (7-18); BUN/Creat Ratio 8.3 RATIO (10-20); Calcium,Total 8.9 mg/dL (8.5-10.1); Chloride 110 mmol/L (98-107); Creatinine, Serum 0.48 mg/dL (0.55-1.02); EST Glomerular Filtration Rate 153 mL/min (>60); Est Glom Filt Rate - Afr Amer 185 mL/min (>60); Estimated Creatinine Clearance 181.64 ml/min; Globulin 3.2 g/dL (2.2-4.2); Glucose 82 mg/dL (74-106); Lipase 77 U/L (13-75); Potassium 3.6 mmol/L (3.5-5.1); Protein, Total 6.2 g/dL (6.4-8.2); Sodium Level 139 mmol/L (136-145)
--- NOTE | 2023-04-05 10:43 | PN_ITS ---
Subjective Subjective Patient seen and examined. She had no active complaints. She had an uneventful night. Review of systems otherwise negative. She says the Toradol really helped with the abdominal pain. She is due for ERCP today. Objective Data Objective Data Vital Signs: Vital Signs Temp Pulse Resp BP Pulse Ox O2 Del Method 98.4 F 84 18 140/82 H 97 Room Air 04/05/23 09:15 04/05/23 09:15 04/05/23 09:15 04/05/23 09:15 04/05/23 09:15 04/05/23 09:15 Oxygen Delivery Method Room Air Weight: 214 lb 4.629 oz Body Mass Index (BMI) 36.6 Intake & Output: Intake and Output for Last 24 Hours 04/03/23 04/04/23 04/05/23 23:59 23:59 23:59 Intake Total 4095.83 / 4095.83 5116.67 / 5716.67 2375 / 2375 Output Total 5675 / 6975 1300 / 1300 Balance 4095.83 / 3670.83 -558.33 / -1258.33 1075 / 1075 Lab / Micro Data 04/05/23 07:14 04/05/23 07:14 Labs: Laboratory Results - last 24 hr 04/04/23 14:25: Urine Test Negative 04/05/23 07:14: WBC 9.9, RBC 3.38 L, Hgb 9.7 L, Hct 29.9 L, MCV 88.5, MCH 28.7, MCHC 32.4, RDW Std Deviation 42.3, RDW Coeff of Lydia 13.0, Plt Count 264, MPV 9.2, Immature Gran % (Auto) 0.300, Neut % (Auto) 67.8, Lymph % (Auto) 18.5 L, [place] % (Auto) 9.2, Eos % (Auto) 4.0, Baso % (Auto) 0.2, Absolute Neuts (auto) 6.7, Absolute Lymphs (auto) 1.83, Nucleated RBC % 0, Sodium 139, Potassium 3.6, Chloride 110 H, Carbon Dioxide 25.0, Anion Gap 4 L, BUN 4 L, Creatinine 0.48 L, Estim Creat Clear Calc 181.64, Est GFR (MDRD) Af Amer 185, Est GFR (MDRD) Non-Af 153, BUN/Creatinine Ratio 8.3 L, Glucose 82, Calcium 8.9, Total Bilirubin 0.70, AST 24, ALT 121 H, Alkaline Phosphatase 50, Total Protein 6.2 L, Albumin 3.0 L, Globulin 3.2, Albumin/Globulin Ratio 0.9, Amylase 104, Lipase 77 H Physical Exam Const alert, oriented x3, no apparent distress and well nourished General Appearance: cooperative HEENT normocephalic, head/scalp atraumatic, moist oral mucous membranes and oropharynx normal Eyes PERRL and EOMs intact bilaterally Neck no lymphadenopathy and supple Lymph Lymphatic: no lymphadenopathy noted and no lymphedema noted Resp normal respiratory effort, normal air movement and clear to auscultation bilaterally Cardio regular rate, regular rhythm, S1 normal heart sound, S2 normal heart sound and no murmurs GI GI Narrative: abdomen soft, moderate epigastric tenderness, no guarding or rebound tenderness. Extremity normal capillary refill, no clubbing, cyanosis or edema and no calf tenderness General Extremity: no tenderness to palpation of joints or extremities Skin General Skin Exam: no breakdown Neuro CN's II-XII intact bilaterally, no focal motor deficits and no sensory deficits noted Motor Exam: strength 5/5 throughout Psych thought process normal and cooperative Appearance: appropriate Assessment & Plan Assessment/Plan (1) Acute pancreatitis: QUALIFIERS: Pancreatitis type: unspecified pancreatitis type Acute pancreatitis complication: unspecified Qualified Code(s): K85.90 - Acute pancreatitis without necrosis or infection, unspecified PLAN: Plan #Acute recurrent pancreatitis * was recently admitted for acute pancreatiti and had EGD on 04/02/2023 which sh owed markedly dilated main bile duct, with a stone causing obstruction and couldn't removed; a stent was inserted and biliary sphincterotomy was performed and biliaty tress was swept; left main hepatic duct was dilated with a 1 temporary stent placed in common bile duct. * she started having abdominal pain again after discharge. Per GI, she may have a stone in the common bile duct still. * for repeat ERCP today * GI on board. * on IV toradol and IV morphine prn for pain. * #Hypothyroidism; on synthroid. #ADHD: on adderall DVT prophylaxis; SCDs Charges/Coding Visit Charges Inpatient E&M: 15018 Subs Hosp L2
[2023-04-05] MEDS: levoFLOXacin IV 500 MG/100 ML BAG 100 MG IV (11:00)
--- NOTE | 2023-04-05 11:05 | NURSING ---
pt picked up and brought down to surgery via bed. Friend and Mother present and went with her.
--- NOTE | 2023-04-05 11:15 | RAD_ITS ---
EXAM: FL FLUOROSCOPY < 1 HOUR CLINICAL INDICATION: PAIN TECHNIQUE: 10 fluoroscopic images of ERCP were obtained. Fluoroscopic guidance was provided by a physician. The fluoroscopy time is 1.12 seconds. COMPARISON: No relevant prior studies available. FINDINGS: Filling defect is seen in the distal common bile duct which may represent retained stone which is not definitely seen on subsequent images. The last image demonstrates common bile duct stent. The exam was not performed for diagnostic purposes. RAD/ERCP Biliary/Pancreas IMPRESSION: Status post common bile duct stent placement. Electronically Signed: James Retana MD at 14:03 EST ,
[2023-04-05] MEDS: 0.9% Saline Lock 10 ML Syringe IV ×2 (17:12→23:30)
[2023-04-05] MEDS: morphine 10 MG/ML Syringe 6 MG IV (20:41)
[2023-04-06] MEDS: 0.9% Saline Lock 10 ML Syringe IV ×3 (03:28→05:51)
[2023-04-06] MEDS: morphine 10 MG/ML Syringe 6 MG IV (03:28)
[2023-04-06] MEDS: Lactated Ringers 1,000 ML 125 ML IV (04:53)
[2023-04-06] MEDS: Levothyroxine 25 MCG TABLET PO (05:24)
[2023-04-06] MEDS: Senna/Docusate Sodium 1 Tablet 2 TABLET PO (05:24)
[2023-04-06] MEDS: oxyCODONE 5 MG Tablet PO ×2 (05:25→09:47)
[2023-04-06] MEDS: Ketorolac 30 MG/ML Syringe IV (05:25)
[2023-04-06] MEDS: Metoclopramide 10 MG/2 ML Vial 5 MG IV (05:25)
[2023-04-06 05:26] VITALS: BMI 36.5
[2023-04-06 05:30] VITALS: BP 129/70; PULSE 60; RESP 17; TEMP 36.8; O2SAT 95
[2023-04-06 06:35] LABS: Absolute Neutrophil Count 8.5 X10^3/uL (2.0-7.7); Basophil# 0.01 X10^3/uL; Basophil% 0.1 % (0-1); Hematocrit 27.7 % (37-47); Hemoglobin 9.4 g/dL (12.0-15.0); Lymphocyte % 16.1 % (19-41); Mean Corp Hgb Conc 33.9 g/dL (32-36); Mean Corpuscular Hgb 29.7 pg (27.0-32.0); Mean Corpuscular Volume 87.4 fL (81-99); Mean Platelet Vol. 9.2 fl (6.2-12.0); Monocyte# 0.77 X10^3/uL; Monocyte% 6.9 % (0-10); NRBC Flagged by Analyzer 0 % (0-5); Neutrophil # 8.53 X10^3/uL (2.7-7.7); Neutrophil % 76.5 % (47-70); Platelet Count 284 K/mm3 (150-450); RBC Distribution Width CV 12.8 % (11.6-14.6); RBC Distribution Width SD 40.8 fl (35.1-43.9); Red Blood Count 3.17 M/mm3 (4.2-5.4); White Blood Count 11.2 K/mm3 (4.4-11.0)
[2023-04-06 06:45] VITALS: BMI 36.8
[2023-04-06 07:01] LABS: ALB/GLOB Ratio 0.8 RATIO (0.9-2.4); AST(SGOT) 24 U/L (15-37); Alanine Aminotransfer ALT/SGPT 104 U/L (13-56); Alkaline Phosphatase 47 U/L (45-117); Anion Gap 5 (5-15); BUN 7 mg/dL (7-18); Calcium,Total 8.9 mg/dL (8.5-10.1); Chloride 107 mmol/L (98-107); Creatinine, Serum 0.54 mg/dL (0.55-1.02); EST Glomerular Filtration Rate 135 mL/min (>60); Est Glom Filt Rate - Afr Amer 163 mL/min (>60); Globulin 3.6 g/dL (2.2-4.2); Glucose 132 mg/dL (74-106); Potassium 3.9 mmol/L (3.5-5.1); Protein, Total 6.6 g/dL (6.4-8.2); Sodium Level 138 mmol/L (136-145)
--- NOTE | 2023-04-06 07:04 | EX.PCM.PN.GI ---
Subjective Subjective Patient underwent repeat ERCP yesterday and underwent lithotripsy with removal of choledocholithiasis. Her abdominal pain is a lot better today. She denies any nausea, vomiting, diarrhea and is tolerating a full liquid diet which is progressed to soft liquid diet. Objective Data Objective Data Vital Signs: Vital Signs Temp Pulse Resp BP Pulse Ox O2 Del Method O2 Flow Rate 98.1 F 62 16 136/74 H 97 Room Air 2 04/06/23 09:08 04/06/23 09:08 04/06/23 09:08 04/06/23 09:08 04/06/23 09:08 04/06/23 09:08 04/05/23 14:31 Oxygen Flow Rate (L/min) 2 Oxygen Delivery Method Room Air Weight: 215 lb 6.266 oz Body Mass Index (BMI) 36.8 Intake & Output: Intake and Output for Last 24 Hours 04/04/23 04/05/23 04/06/23 23:59 23:59 23:59 Intake Total 5116.67 / 5716.67 4554.58 / 4554.58 1660.42 / 1660.42 Output Total 5675 / 6975 1300 / 2175 1375 / 1375 Balance -558.33 / -1258.33 3254.58 / 2379.58 285.42 / 285.42 Lab / Micro Data 04/06/23 06:05 04/06/23 06:05 Labs: Laboratory Results - last 24 hr 04/06/23 06:05: WBC 11.2 H, RBC 3.17 L, Hgb 9.4 L, Hct 27.7 L, MCV 87.4, MCH 29.7, MCHC 33.9, RDW Std Deviation 40.8, RDW Coeff of Lydia 12.8, Plt Count 284, MPV 9.2, Immature Gran % (Auto) 0.400, Neut % (Auto) 76.5 H, Lymph % (Auto) 16.1 L, [place] % (Auto) 6.9, Eos % (Auto) 0.0, Baso % (Auto) 0.1, Absolute Neuts (auto) 8.5 H, Absolute Lymphs (auto) 1.80, Nucleated RBC % 0, Sodium 138, Potassium 3.9, Chloride 107, Carbon Dioxide 26.0, Anion Gap 5, BUN 7, Creatinine 0.54 L, Estim Creat Clear Calc 161.90, Est GFR (MDRD) Af Amer 163, Est GFR (MDRD) Non-Af 135, BUN/Creatinine Ratio 13.0, Glucose 132 H, Calcium 8.9, Total Bilirubin 0.50, AST 24, ALT 104 H, Alkaline Phosphatase 47, Total Protein 6.6, Albumin 3.0 L, Globulin 3.6, Albumin/Globulin Ratio 0.8 L Radiography Diagnostic Testing: Radiology Impression Endo Retro Cholangiopancreatogram 04/05/23 11:15 IMPRESSION: Status post common bile duct stent placement. Electronically Signed: James Retana MD at 14:03 EST , Physical Exam Const alert, oriented x3, no apparent distress and well nourished General Appearance: cooperative HEENT normocephalic, head/scalp atraumatic, moist oral mucous membranes and oropharynx normal Eyes PERRL and EOMs intact bilaterally Neck no lymphadenopathy and supple Lymph Lymphatic: no lymphadenopathy noted and no lymphedema noted Resp normal respiratory effort, normal air movement and clear to auscultation bilaterally Cardio regular rate, regular rhythm, S1 normal heart sound, S2 normal heart sound and no murmurs GI GI Narrative: abdomen soft, moderate epigastric tenderness, no guarding or rebound tenderness. Extremity normal capillary refill, no clubbing, cyanosis or edema and no calf tenderness General Extremity: no tenderness to palpation of joints or extremities Skin General Skin Exam: no breakdown Neuro CN's II-XII intact bilaterally, no focal motor deficits and no sensory deficits noted Motor Exam: strength 5/5 throughout Psych thought process normal and cooperative Appearance: appropriate Assessment & Plan Assessment/Plan (1) History of biliary duct stent placement: (2) History of gallstones: (3) Acute gallstone pancreatitis: (4) Hypothyroidism: PLAN: Plan 37-year-old with past medical history of cholecystitis status postcholecystectomy recently presented with acute gallstone pancreatitis status post ERCP with stone removal and stent placement who comes back in with recurrent pancreatitis. Likely etiology is retained stone that was not seen on recent occlusion cholangiogram. She has very mild pancreatitis me that her hematocrit is 34. -Recurrence of symptoms that started at 4:30 AM -Patient had ERCP 04/02 which showed the entire main bile duct was markedly dilated with stone causing obstruction, removal not accomplished the stent inserted and biliary sphincterotomy was performed, biliary tree was swept and left main hepatic duct was dilated with 1 temporary stent placed in common bile duct -Recommend to give 2 L of LR for 3L total of bolus' and then start 250/hr -I's and O's, daily weights -N.p.o. -Continue her Levaquin but as IV, suspect elevated white blood cell count more likely due to procedure then suddenly new infection -She may need ERCP with spyglass 04/04/23-patient is scheduled for ERCP tomorrow with spyglass and lithotripsy of remaining stone in, bile duct. Continue IV fluids and pain medicine for pancreatitis. I will put patient on a clear liquid diet. N.p.o. past midnight. 04/06/23-patient is doing a lot better. She can be DC'd to home on a soft diet for the next 4 days and progress to a regular diet. Follow-up in the clinic. Charges/Coding Visit Charges Inpatient E&M: 42422 Subs Hosp L3
[2023-04-06 09:08] VITALS: BP 136/74; PULSE 62; RESP 16; TEMP 36.7; O2SAT 97
[2023-04-06] MEDS: levoFLOXacin IV 500 MG/100 ML BAG 100 MG IV (09:12)
--- NOTE | 2023-04-06 10:23 | DCINST_ITS ---
Discharge Instructions Diet Discharge Diet: Low fat / Low cholesterol Activity Discharge Activity: Return to Normal Activity Weight Bearing Status: Weight bearing as tolerated Dressing / Incision Call your doctor if you observe: Fever of 101 or Higher, Shortness of breath, Dizziness, Swelling in the ankles and Chest pain Follow Up Care Test Results: Test results from this visit will be discussed in further detail at your follow- up appointment, if applicable. Discharge Plan Admission Admit Date/Time: 04/03/23 15:07 Primary Reason for Your Visit: acute recurrent pancreatitis Attending Provider: Mara Toro Primary Care Provider: Dann Stokes NP Consulting Providers: Patti Laughlin Instructions Patient Instructions: Pancreatitis Acute Dc Discharge Orders/Prescriptions Prescriptions: New oxycodone 5 mg Tablet 5 mg PO Q4H PRN PRN (Reason: Pain Score 4-10) 3 Days Qty: 18 0RF Continued dextroamphetamine-amphetamine 15 mg capsule,extended release 24hr 15 mg PO BID levothyroxine 25 mcg tablet 25 mcg PO DAILY Patient Comments: TAKE 1 TABLET BY MOUTHCONCE DAILY levofloxacin 500 mg tablet 500 mg PO DAILY 3 Days Qty: 3 0RF ondansetron HCl 4 mg tablet 4 mg PO Q6H PRN (Reason: nausea and vomiting) Qty: 60 0RF Referrals / Follow Up: Dann Stokes NP, [employer]CHNICIAN-C [Primary Care Provider] - Disposition Disposition (needs filled in before D/C Order can be placed): Home, Self Care
--- NOTE | 2023-04-06 10:24 | PCM.DC.SUM ---
Providers Date of Admission: 04/03/23 Date of Discharge: 04/06/23 Primary Care Physician: Dann Stokes, MIKE-Alexia Consultations 04/03/23 15:57 Consult: Gastroenterology Routine Consulting Provider: [facility] Reason for Consult: recurrent abd pain after ercp EMERGENT Consult: No MD Notified: Yes Date Notified: 04/03/23 Time Notified: 15:18 Method of Notification: Verbal Reason For Visit: ABD Diagnosis Discharge Diagnosis (1) Acute pancreatitis: Status: Acute Code(s): K85.90 - Acute pancreatitis without necrosis or infection, unspecified Qualifiers: Acute pancreatitis complication: unspecified Pancreatitis type: unspecified pancreatitis type Qualified Code(s): K85.90 - Acute pancreatitis without necrosis or infection, unspecified Plan #Acute recurrent pancreatitis was recently admitted for acute pancreatiti and had EGD on 04/02/2023 which showed markedly dilated main bile duct, with a stone causing obstruction and couldn't removed; a stent was inserted and biliary sphincterotomy was performed and biliaty tress was swept; left main hepatic duct was dilated with a 1 temporary stent placed in common bile duct. she started having abdominal pain again after discharge. Per GI, she may have a stone in the common bile duct still. Had repeat ERCP today which showed a dilated entir main bile duct, with a stone causing obstruction, with choledocholithiasis which was removed by biliary sphincterotomy and balloon extraction. Stent was removed from biliary tree. GI on board. on IV toradol and IV morphine prn for pain. #Hypothyroidism; on synthroid. #ADHD: on adderall DVT prophylaxis; SCDs Medications at Discharge Home Medications dextroamphetamine-amphetamine ER 15 mg 24hr capsule,extend release 15 mg PO BID 03/05/21 levothyroxine 25 mcg tablet 25 mcg PO DAILY 03/30/23 levofloxacin 500 mg tablet 500 mg PO DAILY 3 days #3 tabs 04/02/23 ondansetron HCl 4 mg tablet 4 mg PO Q6H PRN nausea and vomiting #60 tabs 04/03/23 oxycodone 5 mg tablet 5 mg PO Q4H PRN PRN Pain Score 4-10 3 days #18 tabs 04/06/23 Hospital Course Operations None Procedures - (ERCP) Summary of Care Provided Minutes Spent on Discharge: 45 Hospital Course: Patient is a 37-year-old female with past medical history as outlined was on the way to the ED on 04/03/2023 with a complaint of abdominal pain. Pain was sharp and squeezing in nature. She had recently been admitted from 03/30/2023 through 04/02/2023 for acute gallstone pancreatitis due to choledocholithiasis. She had ERCP done on 04/02/2023 and had a temporary stent placed. She was discharged home and says she felt better but subsequently started having pain again so she came back to the ED. AST and ALT were mildly elevated and lipase was elevated at 1259. She was admitted and managed for acute recurrent pancreatitis. She was started on IV Toradol and morphine and hydrated with IV fluids. She was kept n.p.o. and gastroenterology was consulted. Plan was for patient to have repeat ERCP. She did have repeat ERCP on 04/06/2023 which showed multiple stones in the lower third of the main bile duct with the largest being around 12 mm in diameter. The main bile duct was diffusely dilated with a stone causing obstruction with the largest diameter being 8 mm. She had sphincterotomy with sweeping of the biliary tree and removal of all the stones. 1 stent was removed from the biliary tree as it was found to be partially occluded. Bile duct was explored endoscopically using the spyglass direct visualization method. Patient's pain resolved after the ERCP and she felt much better. She remained stable and was discharged home on 04/06/2023. She was given a prescription for p.o. oxycodone 5 mg daily every 4 hours as needed for total of 18 tablets for 3 days. [place] call was checked and no red flags were seen. She has follow-up with her primary care doctor within 1 to 2 weeks and follow-up with gastroenterology on outpatient basis. Patient seen and examined prior to discharge. She felt much better and had no complaints. Review of symptoms otherwise negative. Labs and vitals reviewed. Home medication reviewed and reconciled. Physical Exam Const alert, oriented x3, no apparent distress and well nourished General Appearance: cooperative, comfortable and well kempt Orientation / Consciousness: awake HEENT normocephalic, head/scalp atraumatic, hearing grossly normal bilaterally, moist oral mucous membranes and oropharynx normal Eyes PERRL, EOMs intact bilaterally and conjunctivae normal Neck no lymphadenopathy and supple Lymph Lymphatic: no lymphadenopathy noted and no lymphedema noted Resp normal respiratory effort, normal air movement, no retractions, no use of accessory muscles and clear to auscultation bilaterally Cardio regular rate, regular rhythm, S1 normal heart sound, S2 normal heart sound and no murmurs GI normal to inspection, nondistended, normoactive bowel sounds, soft to palpation, non-tender and non-distended Extremity normal to inspection, full ROM, normal capillary refill, no clubbing, cyanosis or edema and no calf tenderness General Extremity: no tenderness to palpation of joints or extremities Skin no rashes or lesions noted General Skin Exam: no breakdown Neuro oriented x3, CN's II-XII intact bilaterally, moves all extremities, no focal motor deficits and no sensory deficits noted Sensorium / Orientation: awake Motor Exam: strength 5/5 throughout Psych thought process normal and cooperative Appearance: appropriate Weight / BMI Weight Weight: 215 lb 6.266 oz Body Mass Index (BMI) 36.8 ABG / Lab / Microbiology Data 04/06/23 06:05 04/06/23 06:05 Laboratory: Laboratory Results - last 24 hr 04/06/23 06:05: WBC 11.2 H, RBC 3.17 L, Hgb 9.4 L, Hct 27.7 L, MCV 87.4, MCH 29.7, MCHC 33.9, RDW Std Deviation 40.8, RDW Coeff of Lydia 12.8, Plt Count 284, MPV 9.2, Immature Gran % (Auto) 0.400, Neut % (Auto) 76.5 H, Lymph % (Auto) 16.1 L, [place] % (Auto) 6.9, Eos % (Auto) 0.0, Baso % (Auto) 0.1, Absolute Neuts (auto) 8.5 H, Absolute Lymphs (auto) 1.80, Nucleated RBC % 0, Sodium 138, Potassium 3.9, Chloride 107, Carbon Dioxide 26.0, Anion Gap 5, BUN 7, Creatinine 0.54 L, Estim Creat Clear Calc 161.90, Est GFR (MDRD) Af Amer 163, Est GFR (MDRD) Non-Af 135, BUN/Creatinine Ratio 13.0, Glucose 132 H, Calcium 8.9, Total Bilirubin 0.50, AST 24, ALT 104 H, Alkaline Phosphatase 47, Total Protein 6.6, Albumin 3.0 L, Globulin 3.6, Albumin/Globulin Ratio 0.8 L Radiography Diagnostic Testing: Radiology Impression Endo Retro Cholangiopancreatogram 04/05/23 11:15 IMPRESSION: Status post common bile duct stent placement. Electronically Signed: James Retana MD at 14:03 EST Reading Location ID and State: [address] [place] [address] Tel , Service support , D/C Instructions Discharge Diet: Low fat / Low cholesterol Discharge Activity: Return to Normal Activity Weight Bearing Status: Weight bearing as tolerated Call your doctor if you observe: Fever of 101 or Higher, Shortness of breath, Dizziness, Swelling in the ankles and Chest pain Meaningful Use Info Meaningful Use Diagnoses (Choose all that apply): None applicable Discharge Plan Admission Admit Date/Time: 04/03/23 15:07 Primary Reason for Your Visit: acute recurrent pancreatitis Attending Provider: Mara Toro Primary Care Provider: Dann Stokes NP Consulting Providers: Patti Laughlin Instructions Patient Instructions: Pancreatitis Acute Dc Discharge Orders/Prescriptions Prescriptions: New oxycodone 5 mg Tablet 5 mg PO Q4H PRN PRN (Reason: Pain Score 4-10) 3 Days Qty: 18 0RF Continued dextroamphetamine-amphetamine 15 mg capsule,extended release 24hr 15 mg PO BID levothyroxine 25 mcg tablet 25 mcg PO DAILY Patient Comments: TAKE 1 TABLET BY MOUTHCONCE DAILY levofloxacin 500 mg tablet 500 mg PO DAILY 3 Days Qty: 3 0RF ondansetron HCl 4 mg tablet 4 mg PO Q6H PRN (Reason: nausea and vomiting) Qty: 60 0RF Referrals / Follow Up: Dann Stokes NP, ASSISTANT [employer]ICE PRESIDENT-C [Primary Care Provider] - Disposition Disposition (needs filled in before D/C Order can be placed): Home, Self Care Charges/Coding Visit Charges Inpatient E&M: 68275 Disch Hosp >30min
--- NOTE | 2023-04-06 10:35 | PHA.DC.MC.R ---
Pharmacy [facility] has performed discharge medication reconciliation and counseling for this patient. The patient's discharge medication list was reviewed for discrepancies and discrepancies were resolved. The patient was counseled on the following discharge medications and changes in medications for homegoing were reviewed. The Reason for Use, instructions for use, and potential side effects were reviewed for all new medications. The patient's questions regarding all of their medications were answered. 1. Oxycodone 5 mg PO Q4H PRN pain The patient was able to verbally demonstrate an understanding of their discharge medications. Medications at Discharge Home Medications dextroamphetamine-amphetamine ER 15 mg 24hr capsule,extend release 15 mg PO BID 03/05/21 levothyroxine 25 mcg tablet 25 mcg PO DAILY 03/30/23 levofloxacin 500 mg tablet 500 mg PO DAILY 3 days #3 tabs 04/02/23 ondansetron HCl 4 mg tablet 4 mg PO Q6H PRN nausea and vomiting #60 tabs 04/03/23 oxycodone 5 mg tablet 5 mg PO Q4H PRN PRN Pain Score 4-10 3 days #18 tabs 04/06/23
== END 2023-04-06 11:01 | disposition home or self-care (01) | DRG 439 ==
LOC: ED 14:27 → MS3 15:21
PROVIDERS: Internal Medicine Gastroenterology; Admitting Provider Internal Medicine; Emergency Provider Emergency Medicine; PCP Nurse Practitioner Family; Visit Provider Student in an Organized Health Care Education/Training Program
PROC: 0FC98ZZ Extirpation of Matter from Common Bile Duct, Via Natural or Artificial Opening Endoscopic (ICD-10-PCS; CPT 43260; principal; 2023-04-05 11:55)
DX: K85.10 Biliary acute pancreatitis without necrosis or infection (principal); K80.51 Calculus of bile duct without cholangitis or cholecystitis with obstruction; E03.9 Hypothyroidism, unspecified; F90.9 Attention-deficit hyperactivity disorder, unspecified type; Z90.49 Acquired absence of other specified parts of digestive tract; Z79.899 Other long term (current) drug therapy; Z87.891 Personal history of nicotine dependence
CPT/HCPCS: 36415; 74330; 76000; 80053; 81025; 82150; 83690; 83735; 84703; 85025; 85652; 86140; 94668; 99252; 99284; J7030; J7120; A4216; G0463; J2405

== ENCOUNTER → 2023-04-13 | Outpatient (CLI) | payer OTHER, SELFPAY ==
[2023-04-13 09:34] LABS: Hematocrit 39.8 % (37-47); Hemoglobin 12.8 g/dL (12.0-15.0); Mean Corp Hgb Conc 32.2 g/dL (32-36); Mean Corpuscular Hgb 28.1 pg (27.0-32.0); Mean Corpuscular Volume 87.5 fL (81-99); Mean Platelet Vol. 8.9 fl (6.2-12.0); Platelet Count 447 K/mm3 (150-450); RBC Distribution Width SD 41.5 fl (35.1-43.9); Red Blood Count 4.55 M/mm3 (4.2-5.4); White Blood Count 9.7 K/mm3 (4.4-11.0)
[2023-04-13 10:05] LABS: ALB/GLOB Ratio 0.9 RATIO (0.9-2.4); AST(SGOT) 16 U/L (15-37); Alanine Aminotransfer ALT/SGPT 34 U/L (13-56); Albumin, Serum 3.5 g/dL (3.2-5.0); Alkaline Phosphatase 39 U/L (45-117); Amylase 63 U/L (25-115); Anion Gap 5 (5-15); BUN 5 mg/dL (7-18); BUN/Creat Ratio 8.7 RATIO (10-20); CRP < 2.90 mg/L (0.0-3.0); Calcium,Total 8.9 mg/dL (8.5-10.1); Chloride 110 mmol/L (98-107); Creatinine, Serum 0.57 mg/dL (0.55-1.02); EST Glomerular Filtration Rate 126 mL/min (>60); Est Glom Filt Rate - Afr Amer 152 mL/min (>60); Glucose 135 mg/dL (74-106); Lipase 76 U/L (13-75); Potassium 3.9 mmol/L (3.5-5.1); Protein, Total 7.5 g/dL (6.4-8.2); Sodium Level 137 mmol/L (136-145)
== END | disposition home or self-care (01) ==
LOC: LAB 08:48
PROVIDERS: PCP Nurse Practitioner Family; Referring Provider Nurse Practitioner Family; Visit Provider Nurse Practitioner Family
DX: K85.90 Acute pancreatitis without necrosis or infection, unspecified (principal)
CPT/HCPCS: 36415; 80053; 82150; 83690; 85027; 86140

== ENCOUNTER 2023-12-18 12:27 | Day surgery (SDC) | payer OTHER, SELFPAY ==
[2023-12-18] VITALS (8 sets, daily range): BP systolic 103–121; BP diastolic 52–75; PULSE 75–87; RESP 16–18; TEMP 36.1–36.6; O2SAT 98–100; BMI 38.0
--- NOTE | 2023-12-18 12:30 | RAD_ITS ---
ERCP INDICATION: Abdominal pain. Fluoroscopy time: 47 seconds Images obtained: 10 FINDINGS: 47 seconds of fluoroscopy abdomen was utilized operating under an ERCP 10 images are significant for interpretation. The patient is status post cholecystectomy. A biliary stent is noted. The stent was removed and a balloon sphincterotomy was performed. RAD/ERCP Biliary/Pancreas IMPRESSION: Fluoroscopy during ERCP. Electronically Signed: Dann Farley MD at 11:24 EST ,
--- OUTSIDE RECORDS SUMMARY | 2023-12-18 12:31 | XMS RPT_ITS | CCD ---
Author Organization [facility] Inform ion Partnership [facility] Care Team Providers Care Flight Service Specialist Name Role Phone NELIDA WEI Unavailable Unavailable SADA EDWARDS - CONSUMER BANKERSHARAN Primary Care Phys ician NITIN EDWARDS-MARY, KAMILAH Sloan Attending Jada TOMLIN APRN - SHARAN HERNANDEZ Primary Care U kobeailJONAH Beckham Attending Unavailable JONAH SMITH Primary Care Unavailable JONAH SMITH Admitting Unavailable Allergies Allergy Classification Reported Allergen(s) Allergy Type Date of Onset Reaction(s) Facility (1 source) Penicillin; Translations: [penicillins] Drug Allergy Eruption of skin (disorder) [facility] Medications Current Medications Medication Drug Class(es) Dates Sig (Normalized) Sig (Original) cholecalciferol 1.25 mg oral capsule (1 source) Vitamin D Start: 10-09-2022 End: 04-07-2023 cholecalciferol 1250 mcg (50,000 intl units) oral capsule Dose : 50,000 International_Unit = 1 cap(s), Oral, qmonth, # 4 cap(s), 1 Refill(s), Pharmacy: [facility], Vitamin D deficiency, 162, [...] generic, # 90 tab(s), 0 Refill(s), Pharmacy: [facility], RAMONITA (generalized anxiety disorder), 163.5, cm, 01/08/23 8:45:00 EST, Height, kg, 01/08/23 8:45:00 EST, Dosing Weight Start Date: 01/08/23 Stop Date: 04/08/23 Status: Ordered levothyroxine sodium 0.025 mg oral tablet (1 source) l-Thyroxine Start: 10-09-2022 End: 04-07-2023 levothyroxine 25 mcg (0.025 mg) oral tablet Dose : 25 mcg = 1 tab(s), Oral, qDay, # 90 tab(s), 1 Refill(s), Pharmacy: [facility], Hypothyroidism in adult, 162, [...] generic, # 60 cap(s), 0 Refill(s), Pharmacy: [facility] ADD (attention deficit disorder), 163.5, cm, 01/08/23 8:45:00 EST, Height, 96.2, kg, 01/08/23 8:45:00 EST, Dosing Weight Start Date: 01/08/23 Stop Date: 02/07/23 Status: Ordered Problems Active Problems Problem Classification Problem Date Documented Da te Episodic/Chronic Anxiety disorders (1 source) Generalized anxiety disorder 12-09-2020 Chronic Attention-deficit, conduct, and disruptive behavior disorders (1 source) Adult attention deficit hyperactivity disorder 09-16-2018 Chronic Nutritional deficiencies (1 source) Vitamin D deficiency 11-28-2021 Chronic Other gastrointestinal disorders (1 source) Chronic constipation 12-07-2022 Episodic Residual codes; unclassified (1 source) Increased body mass index 03-09-2020 Episodic Residual codes; unclassified (1 source) Tobacco user 09-16-2018 Episodic Thyroid disorders (2 sources) Goiter; Translations: [Hypothyroidism] 11-28-2021 Chronic Unclassified (1 source) Unknown / UNK(Unknown) Onset: 07-17-2017 Unclassified (1 source) Cancer cervix screening status 11-29-2021 Unclassified (1 source) Drug therapy finding 01-08-2023 Comment on above: Medication managemen t contract signed (12/2022) Medication managemen t contract signed, 10/2021 Unclassified (4 sources) Patient encounter status 11-28-2021 Past or Other Problems Problem Classification Problem Date Documented Date Episodic/Chronic Immunizations and screening for infectious disease (2 sources) Encounter for screening for human papillomavirus (HPV); Translations: [Encounter for screening for human papillomavirus (HPV)] Onset: 02-08-2023 Episodic Unclassified (1 source) KSU ADVICE NURSE SCREENING Onset: 07-17-2017 Results Test Name Value Interpretation Reference Range Facility QUANTIFERON TB INCUBATED [CC L]on 08-12-2023 Mitogen minus Nil >9.95 Normal >=0.50 [facility] Comment on above: Performed By: #### 2 [id number] #### [facility],[address] [place] [address] 36798 TB Gamma Interpretation Infection with M. tuberculosis complex is unlikely. If latent tuberculosis infec Normal [facility] Comment on above: Result Comment: [facility] [address] [place] [address] Johnny Casas III, M.D. [id number] Performed By: #### 2 80520 #### [facility],[address] [place] [address] 83719 TB NIL 0.05 IU/mL Normal <=8.00 [facility] Comment on above: Performed By: #### 2 76711 #### [facility],[address] [place], [place] [id number] TB Result Negative Normal [facility] Comment on above: Performed By: #### 2 88277 #### [facility],[address] [place] [address] 19853 TB1 Ag minus Nil 0.00 IU/mL Normal <0.35 [facility] Comment on above: Performed By: #### 2 99176 #### [facility],[address] [place] [address] 71195 TB2 Ag minus Nil <0.00 Normal <0.35 [facility] Comment on above: Performed By: #### 2 50573 #### [facility],[address] [place] [address] 27910 HEP B SURFACE AB, QUANT [CCL ]on 08-10-2023 HepB Surface Ab,Qual Positive Normal [facility] Comment on above: Result Comment: Cons istent with serological evidence of immunity to Hepatitis B Virus. Performed By: #### 2 06351 #### [facility],[address] [place] [address] 37637 HepB SurfaceAb,Quant 45.10 mIU/mL Normal [facility] Comment on above: Result Comment: <8 m IU/mL: No serological evidence of immunity to Hepatitis B Virus. >/= 8 to <12 mIU/mL: No serological evidence of immunity to Hepatitis B Virus. >/= 12 mIU/mL: Consistent with serological evidence of immunity to Hepatitis B Virus. [place] [id number] Johnny Casas III, M.D. [id number] Performed By: #### 2 07907 #### [facility],[address] [place] [address] 92657 MEASLES IGG ANTIBODY [CCL]on 08-10-2023 Measles IgG, Qual Positive Normal Positive [facility] Comment on above: Result Comment: The result suggests recent or past exposure to Measles virus or Measles vaccination. The current test does not detect neutralizing antibodies. Positive result may also be seen due to presence of passively-transferred antibodies. Please correlate [place] [address] Johnny Casas III, M.D. [id number] Performed By: #### 2 27775 #### [facility],[address] [place] [address] 39710 MUMPS IGG AB [CCL]on 024 Mumps IgG, Qual Positive Normal Positive [facility] Comment on above: Result Comment: The result suggests recent or past exposure to Mumps virus or Mumps vaccination. The current test does not detect neutralizing antibodies. Positive result may also be seen due to presence of passively-transferred antibodies. Please correlate with patient's history. [place] [id number] Johnny Casas III, M.D. [id number] Performed By: #### 2 86230 #### [facility],[address] [place] [address] 53262 RUBELLA IgG ANTIBODY [CCL]on 08-10-2023 Rubella IgG Ab, Qual Positive Normal Positive [facility] Comment on above: Result Comment: The result suggests recent or past exposure to Rubella virus or history of Rubella vaccination. Positive result may also be seen due to presence of passively-transferred antibodies. Please correlate with [place] [address] Johnny Casas III, M.D. [id number] Performed By: #### 2 54348 #### [facility],[address] [place], [place] [address] BLOOD TB SCREEN, INCUBATED 08-09-2023 M. tuberculosis tuberculin stim IFN-g Ql (Bld) Negative Normal [facility] Comment on above: Order Comment: Kyle moser Type: BLOOD SPECIMEN Ordering Facility: [facility] Address: [address] [place] [address] Performed By: #### I NTPGP #### [facility] CLIA [id number] [address] [place] [address] [place] MITOGEN MINUS NIL >9.95 Normal >=0.50 [facility] Comment on above: Order Comment: Kyle moser Type: BLOOD SPECIMEN Ordering Facility: [facility] Address: [address] [place] [address] Performed By: #### I NTPGP #### [facility] CLIA [id number] [address] [place] [address] [place] TB GAMMA INTERPRETATION Infection with M. tuberculosis complex is unlikely. If latent tuberculosis infection is highly suspected, a negative result does not rule out the infection. Specimens from immunocompromised patients and those <5 years of age may show false negative results. In case of a contact investigation, please repeat 8-12 weeks after a known exposure. Normal [facility] Comment on above: Order Comment: Kyle moser Type: BLOOD SPECIMEN Ordering Facility: [facility] Address: [address] [place] [address] Performed By: #### I NTPGP #### [facility] CLIA [id number] [address] [place] [address] [place] TB NIL 0.05 IU/mL Normal <=8.00 [facility] Comment on above: Order Comment: Speci men Type: BLOOD SPECIMEN Ordering Facility: [facility] Address: [address] [place] [address] Performed By: #### I NTPGP #### [facility] CLIA [id number] [address] [place] [address] [place] TB1 AG MINUS NIL 0.00 IU/mL Normal <0.35 [facility] Comment on above: Order Comment: Speci men Type: BLOOD SPECIMEN Ordering Facility: [facility] Address: [address] [place] [address] Performed By: #### I NTPGP #### [facility] CLIA [id number] [address] [place] [address] [place] TB2 AG MINUS NIL <0.00 Normal <0.35 [facility] Comment on above: Order Comment: Speci men Type: BLOOD SPECIMEN Ordering Facility: [facility] Address: [address] [place] [address] Performed By: #### I NTPGP #### [facility] CLIA [id number] [address] [place] [address] [place] HBV surface Ab Ql (S)on 07-14 HBV surface Ab Qn (S) 45.10 mIU/mL Normal [facility] Comment on above: Order Comment: Speci men Type: BLOOD SPECIMEN Ordering Facility: [facility] Address: [address] [place] [address] Result Comment: <8 m IU/mL: No serological evidence of immunity to Hepatitis B Virus. >/= 8 to <12 mIU/mL: No serological evidence of immunity to Hepatitis B Virus. >/= 12 mIU/mL: Consistent with serological evidence of immunity to Hepatitis B Virus. Performed By: #### M EASLG, 38908-0 #### [facility] CLIA [id number] [address] [place] [address] [place] HBV surface Ab Ser Qlon 07-14 HBV surface Ab Ql (S) Positive Normal [facility] Comment on above: Order Comment: Speci men Type: BLOOD SPECIMEN Ordering Facility: [facility] Address: [address] [place] [address] Result Comment: Cons istent with serological evidence of immunity to Hepatitis B Virus. Performed By: #### M EASLG, 22483-8 #### [facility] CLIA [id number] [address] [place] [address] OF [facility] LIPID PROFILEon 08-09-2023 Cholesterol [Mass/Vol] 236 mg/dL Normal 0 - 240 [facility] Comment on above: Performed By: #### 2 14497 #### [facility],[address] [place] [address]1051 Cholesterol in HDL [Mass/Vol] 52 mg/dL Normal 40 - 60 [facility] Comment on above: Performed By: #### 2 22827 #### [facility],[address] [place] [address]012 Cholesterol in LDL [Mass/Vol] 144 mg/dL High 0 - 129 [facility] Comment on above: Performed By: #### 2 33174 #### [facility],[address] [place] [address] 74526 Cholesterol.total/C holesterol in HDL [Mass ratio] 4.5 {ratio} Normal 0.0 - 5.0 [facility] Comment on above: Performed By: #### 2 37288 #### [facility],[address] [place] [address] 60596 Lipid 1996 panel Normal [facility] Comment on above: Result Comment: LIPI D PROFILE Performed By: #### 2 17421 #### [facility],[address] [place] [address] 47557 Triglyceride [Mass/Vol] 201 mg/dL High 0 - 150 [facility] Comment on above: Performed By: #### 2 68363 #### [facility],[address] [place], [place] [id number] MUMPS IGG ABon 08-09-2023 MuV IgG Ql (S) Positive Normal Positive [facility] Comment on above: Order Comment: [facility] Type: BLOOD SPECIMEN Ordering Facility: [facility] Address: [address] [place] [address] Result Comment: The result suggests recent or past exposure to Mumps virus or Mumps vaccination. The current test does not detect neutralizing antibodies. Positive result may also be seen due to presence of passively-transferred antibodies. Please correlate with patient's history. Performed By: #### M UMPSG #### [facility] CLIA [id number] [address] [place] [address] [place] RUBELLA IGG ANTIBODYon 08-08 RUBELLA IGG AB, QUAL Positive Normal Positive [facility] Comment on above: Order Comment: [facility] Type: BLOOD SPECIMEN Ordering Facility: [facility] Address: [address] [place] [address] Result Comment: The result suggests recent or past exposure to Rubella virus or history of Rubella vaccination. Positive result may also be seen due to presence of passively-transferred antibodies. Please correlate with patient's history. Performed By: #### R UBIGG #### [facility] CLIA [id number] [address] [place] [address] [place] RUBEOLA (MEASLES)IGGon 08-08 MEASLES IGG AB, QUAL Positive Normal Positive [facility] Comment on above: Order Comment: [facility] Type: BLOOD SPECIMEN Ordering Facility: [facility] Address: [address] [place] [address] Result Comment: The result suggests recent or past exposure to Measles virus or Measles vaccination. The current test does not detect neutralizing antibodies. Positive result may also be seen due to presence of passively-transferred antibodies. Please correlate with patient's history. Performed By: #### M EASLG, 03827-8 #### [facility] CLIA [id number] [address] [place] [id number] [place] URINE COTININE TEST [NEW OLU BENÍTEZ]on 08-09-2023 COTININE Negative Normal NORMAL: NEGATIVE [facility] Comment on above: Result Comment: The COT One Step Cotinine Device (Urine) yields a positve result when the Cotinine in urine exceeds 200 ng/mL. A Cotinine concentration > 200 ng/mL indicates an active tobacco product user. The window of detection for Cotinine in urine at a cutoff level of 200 ng/mL is expected to be up to 2-3 days after nicotine use. Performed By: #### 2 57552 #### [facility],[address] [place] [address] [employer] Cytology Reporton 2023 [employer] Cytology Report . Pathology Reports Accession: Collected Date/Time: Received Date/Time: Pathologist: [id number] 02/08/2023 11:53 EST 02/08/2023 18:00 EST [employer] Cytology Report SPECIMEN: Specimen Description: Liquid Prep w/ HPV Specimen: Cervical Screening or Diagnostic: Screening RELEVANT HISTORY: LMP: within one month SPECIMEN ADEQUACY: SATISFACTORY FOR EVALUATION Endocervical/Transform ational zone component present INTERPRETATION/RESULTS : NEGATIVE FOR INTRAEPITHELIAL LESION OR MALIGNANCY HIGH RISK HPV TESTING: Event Code Result HPV Interp See Interp HPVN HPV Interp Text: High Risk HPV Typing: NEGATIVE HPV types 16, 18, 31, 33, 35, 39, 45, 51, 52, 56, 58, 59, 66 and 68 DNA were undetectable or below the pre-set threshold. The consuelo High-Risk HPV DNA Test is not intended for use as a screening device for Pap normal women under age 30 and is not intended to substitute for regular Pap screening. The consuelo High-Risk HPV DNA Test is designed to augment existing methods for the detection of cervical disease and should be used in conjunction with clinical information derived from other diagnostic and screening tests, physical examinations and full medical history in accordance with appropriate patient management procedures. NOTE: A negative result does not preclude the presence of HPV infection because results depend on adequate specimen collection, absence of inhibitors and sufficient DNA to be detected. As of: 02/15/23 12:26 EST COMMENT: This Pap Test was successfully processed and evaluated with the assistance of the cliniq.lyp Test Imaging System. Pathology Reports Accession: Collected Date/Time: Received Date/Time: Pathologist: [id number] 02/08/2023 11:53 EST 02/08/2023 18:00 EST Electronically Signed by Pathology report verified by [facility] Screened by: KK Electronically signed by Adrianna ENGLISH (ASCP) Sign-Out Date: 02/15/2023 12:27 Performing Lab: [facility], [address] [place] [address] Pathology Dept Disclaimer The Pap test is a screening test for cervical cancer. As evidenced by published data, it is subject to both inherent false negative and false positive results. Your patient's results should be interpreted in context with pertinent clinical history including gynecological examination. Normal [facility] HPVon 02-14-2023 HPV Interp Normal See Interp HPVN [facility] Comment on above: Order Comment: Order placed by AP_HPV_ORDER rule from [id number] Result Comment: High Risk HPV Typing: NEGATIVE HPV types 16, 18, 31, 33, 35, 39, 45, 51, 52, 56, 58, 59, 66 and 68 DNA were undetectable or below the pre-set threshold. The consuelo High-Risk HPV DNA Test is not intended for use as a screening device for Pap normal women under age 30 and is not intended to substitute for regular Pap screening. The consuelo High-Risk HPV DNA Test is designed to augment existing methods for the detection of cervical disease and should be used in conjunction with clinical information derived from other diagnostic and screening tests, physical examinations and full medical history in accordance with appropriate patient management procedures. NOTE: A negative result does not preclude the presence of HPV infection because results depend on adequate specimen collection, absence of inhibitors and sufficient DNA to be detected. See [facility] HPVN Performed By: #### H PV #### [place] [address] HPV Source Cervix Normal [facility] Comment on above: Order Comment: Order placed by AP_HPV_ORDER rule from [id number] Performed By: #### H PV #### [place] [address] Encounters Encounter Date Encounter Type Care Provider Facility Start: 08-09-2023 End: 08-09-2023 ambulatory [facility] Start: 08-09-2023 Encounter for genera l adult medical examination without abnormal findings JONAH Severino [facility] Start: 02-08-2023 End: 02-13-2023 ambulatory KAMILAH TAVERAS BOOKING POLICE OFFICER-CONSUMER BANKER Facility:B Start: 02-08-2023 End: 02-12-2023 Outreach Lab KAMILAH TAVERAS BOOKING POLICE OFFICER-CONSUMER BANKER [facility] Start: 07-17-2017 Ambulatory NELIDA WEI Facility: [facility] Procedures Date Procedure Procedure Detail Performing Clinician Start: 02-13-2008 section KAMILAH TAVERAS BOOKING POLICE OFFICER-CONSUMER BANKER Cholecystectomy KAMILAH BARCENAS Y BOOKING POLICE OFFICER-CONSUMER BANKER Tonsillectomy KAMILAHMONI TAVERAS BOOKING POLICE OFFICER-CONSUMER BANKER Immunizations Immunization Date Immunization Notes Care Provider Fa cili 12-16-2021 influenza virus vaccine, unspecified formulation KAMILAH TAVERAS BOOKING POLICE OFFICER-CONSUMER BANKER [facility] [place] 01-13-2021 influenza, injectabl e, quadrivalent, contains preservative; Translations: [Fluarix PF Quadrivalent ] KAMILAH TAVERAS BOOKING POLICE OFFICER-CONSUMER BANKER [facility] [place] 03-03-2020 SARS-CoV-2 mRNA (tozinameran) vaccine KAMILAH TAVERAS BOOKING POLICE OFFICER-CONSUMER BANKER [facility] [place] Comment on above: Result Comment: 2020: TPVAL 02-23-2020 SARS-CoV-2 mRNA (tozinameran) vaccine KAMILAH TAVERAS BOOKING POLICE OFFICER-CONSUMER BANKER [facility] [place] Comment on above: Result Comment: 2020: TPVAL 02-11-2020 SARS-CoV-2 mRNA (tozinameran) vaccine KAMILAH TAVERAS BOOKING POLICE OFFICER-[facility] [place] Comment on above: Result Comment: 202205: TPVAL 10-20-2018 influenza virus vaccine, unspecified formulation KAMILAH COTTONSEY BOOKING POLICE OFFICER-CONSUMER BANKER [facility] [place] 10-18-2018 influenza virus vaccine, unspecified formulation KAMILAH TAVERAS BOOKING POLICE OFFICER-[facility] [place] 11-02-2017 influenza virus vaccine, unspecified formulation KAMILAH TAVERAS APRN-[facility] [place] 08-08-2017 measles/mumps/rubell a virus vaccine KAMILAH COTTONSEY BOOKING POLICE OFFICER-[facility] [place] 08-08-2017 tetanus toxoid, redu lyle diphtheria toxoid, and acellular pertussis vaccine, adsorbed KAMILAH COTTONSEY BOOKING POLICE OFFICER-[facility] Payers Date Payer Category Payer Unknown [id number] 1985 Unknown [id number] Self-pay Social History Date Type Detail Facility Start: 01-08-2023 Tobacco smoking status Ex-smoker (fi nding) [facility] [place] Sex Assigned At Female [facility] Evaluation + Plan note LaboratoryRadiology Note Date & Type Note Facility Evaluation + Plan note Future Appointments Appointment Date:04/09/2023 08:20:00 AM Scheduled Provider:SHARAN TOMLIN APRN, CNP Location:[facility] Appointment Type:PC OV Controlled Medication Diagnostic Tests PendingHPV Screen, DNA Probe 02/08/23 Future Scheduled TestsThyroid Stimulating Hormone 01/09/23Free T4 01/09/23Complete Blood Count 01/09/23Lipid Profile 01/09/23Vitamin D Level 01/09/23Complete Metabolic Panel 01/09/23MA Mammo Diagnostic Bilateral w/[place] 02/08/23US Breast Left Complete 02/08/23 [facility] Hospital course Narrative Note Date & Type Note Facility Hospital course Narrative No data available for this section [facility] Hospital Discharge instructions Note Date & Type Note Facility Hospital Discharge instructions No data available for this section [facility] Progress note Note Date & Type Note Facility Progress note No data available for this section [facility] Summary Purpose Family History No Family History Records Found No data available for this section No Family History Records FoundNo Family History Records FoundNo Family History Records Found Advance Directives No Advanced Directives Records FoundNo Advanced Directives Records FoundNo Advanced Directives Records FoundNo Advanced Directives Records Found Additional Source Comments INFORMATION SOURCE (unrecogn ized section and content) DATE CREATED AUTHOR 08/01/2017 [facility] DATE CREATED AUTHOR AUTHOR'S ORGANIZ ATION 07/03/2023 [facility] DATE CREATED AUTHOR AUTHOR'S ORGANIZ ATION 08/13/2023 [facility] DATE CREATED AUTHOR AUTHOR'S ORGANIZ ATION 08/13/2023 [facility] Patient Care team informatio n (unrecognized section and content) Care Team Personnel Name: SHARAN TOMLIN APRN - CONSUMER BANKER Position: P4 Advanced Survival Equipment Repairer Member Role: Primary Care Physician Address: Address: [address] [place] [address] [place] Care Team Related Persons Name: SAHRA [...] BE BASED ON THE PRIMARY CLINICAL RECORDS. [place] [facility] [employer] [facility]. provides no warranty or guarantee of the accuracy or completeness of information in this document.
[2023-12-18] MEDS: Lactated Ringers 1,000 ML 15 ML IV (12:53)
[2023-12-18 12:55] LABS: Internal QC Validated? YES +Cl - CLEAR BKGD; Pregnancy, Urine Negative Negative
--- NOTE | 2023-12-18 12:58 | EKG12_ITS ---
Test Reason : CP Blood Pressure : */* mmHG Vent. Rate : 70 BPM Atrial Rate : 70 BPM P-R Int : 144 ms QRS Dur : 82 ms QT Int : 392 ms P-R-T Axes : -22 53 53 degrees QTcB Int : 423 ms Normal sinus rhythm Normal ECG Confirmed by Amrik Arnold ([id number]), production editor LISSETTE ANDERSON ([id number]) on 12/19/2023 1:09:08 PM Referred By: Dann Stokes Confirmed By: Amrik Arnold
--- NOTE | 2023-12-18 13:30 | FLU_PTH ---
PATHOLOGY RESULTS PATIENT: YENNI ALVARADO LOC: EN U#:[id number] AGE/SX: 38/F ROOM: RE12/18/[address]: Dr. Grzegorz Pickens DO : 1985 BED: DIS: 12/18/2023 SPEC #: [id number] RECD: 12/19/23 09:18 STATUS: RYLAN BAEZA #: [id number] JS: 12/18/23 13:[address]: Grzegorz Pickens DEPT: CYTOLOGY RECD BY: Pablo Carey ENTERED: 12/19/23 09:19 SP TYPE: Fluid OTHR DR: Dann Stokes, CADD INSTRUCTOR-C Tissues: Biliary tract, NOS Procedures: Special Stain Group II Surgery Specimen Level IV Cytospin Fluid HEADER OPERATION: ERCP with stent removal with balloon sweep PRE-OP DIAGNOSIS: History of biliary duct stent placement TISSUE SUBMITTED: Biliary stent for cytology DIAGNOSIS CYTOLOGY Biliary stent fluid for cytology (cytospin and cellblock): Negative for malignant cells. 12/20/2023 CYTOLOGY STUDY Slides are reviewed. CYTOLOGY GROSS Received is 1 blue/black stent measuring 10cm in length and has 0.2ml of thick yellow-chalky material labeled with the patient's name and and designated per the requisition as Biliary stent. Submitted for cytology preparation including cell block. Mr 12/19/2023 TC:5 CPT: 50487,69841
--- NOTE | 2023-12-18 13:39 | PCM.PRE.AN2 ---
ASA Classification* ASA Classification ASA Classification: 3 Assessment & Plan Anesthesia* Anesthesia Assessment Anesthesia Assessment: Discussed sedation and/or anesthesia options, risks, benefits, and alternatives with patient/parents/legal guardian/POA. Questions invited. The patient/parents/legal guardian/POA seems to understand and agrees to proceed with anesthesia plan. Reviewed the physical assessment, medical history, allergy history and patient home medications list prior to surgery/procedure/anesthetic and documented any changes. Performed airway and anesthesia risk assessments. Anesthesia Type Anesthesia Type: MAC History Source History Obtained from:: Patient and Chart Anesthesia Focused Assessment* Temperature: 97.2 F Pulse Rate: 83 Blood Pressure: 114/55 Respiratory Rate: 16 Pulse Ox: 100 Oxygen Delivery Method: Room Air Airway Assessment Mouth opens: >3 cm Mallampati Score: I Teeth Condition: Chipped/Broken (Left lower molar is broken. It is capped.) Neck Range of motion (ROM): Full ROM Pertinent Findings EKG Pertinent Findings:: December 18, 2023. Normal sinus rhythm Focused Labs Anesthesia Preop lab: CBC WBC 9.7 K/mm3 (4.4-11.0) 04/13/23 08:51 RBC 4.55 M/mm3 (4.2-5.4) 04/13/23 08:51 Hgb 12.8 g/dL (12.0-15.0) 04/13/23 08:51 Hct 39.8 % (37-47) 04/13/23 08:51 Plt Count 447 K/mm3 (150-450) 04/13/23 08:51 CHEMISTRY Potassium 3.9 mmol/L (3.5-5.1) 04/13/23 08:51 Sodium 137 mmol/L (136-145) 04/13/23 08:51 Magnesium 1.9 mg/dL (1.6-2.6) 04/04/23 07:05 Phosphorus 3.8 mg/dL (2.5-4.9) 03/31/23 04:12 BUN 5 mg/dL (7-18) L 04/13/23 08:51 Creatinine 0.57 mg/dL (0.55-1.02) 04/13/23 08:51 Glucose 135 mg/dL (74-106) H 04/13/23 08:51 TSH 2.01 uIU/mL (0.358-3.74) 04/01/23 05:50 COAG Urine Test Negative Negative 12/18/23 12:35 Pre-Assessment Diagnosis/Proposed Procedure Planned Operative Procedure(s): ERCP Anesthesia History 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 When Was Last Pacemaker Check 2 weeks prior had flu 04/05/23 00:33 QUESTION #4 FULL TEXT: You/Your Family Experience fever (hyperthermia) with Anesthesia Last Oral Intake Last Oral intake: Last Oral Intake NPO since 08:30 12/18/23 12:44 Meds taken in AM with sips of water? Meds patient instructed to take am of surgery Any additional information?: Yes NPO since: 08:30 (Patient had water 8:30 AM.) PONV PONV - electrical foreman: PONV - electrical foreman Female Yes 12/12/23 13:02 HX of Motion Sickness Yes 12/12/23 13:02 HX of N/V After Surgery Yes 12/12/23 13:02 Non-Smoker Yes 12/12/23 13:02 Duration of Surgery greater No 12/12/23 13:02 than 60 minutes Number of Risk Factors 4 12/12/23 13:02 PONV Score Severe Risk 12/12/23 13:02 Height & Weight Height & Weight: Anesthesia: Height & Weight Height 5 ft 4 in 12/18/23 12:44 Weight: 100.335 kg 12/18/23 12:44 Body Mass Index (BMI) 38.0 12/18/23 12:44 Respiratory Assessment Respiratory Assessment - electrical foreman: Respiratory Tract Infection Hx - electrical foreman Hx Respiratory Tract Infection Yes: COVID 12/03/2023 12/12/23 13:02 Any additional information?: Yes Hx Respiratory Tract Infection: Yes (Patient had COVID December 03, 2023. Patient is completely recovered.) STOP Sleep Apnea STOP Sleep Apnea - electrical foreman: STOP Sleep Apnea - electrical foreman Hx Hypertension No 12/12/23 13:02 Hx Sleep Apnea No 12/12/23 13:02 CPAP BIPAP Do you snore loudly (louder No 12/12/23 13:02 than talking or can be heard Do you often feel tired/ No 12/12/23 13:02 fatigued/ sleepy during daytime? Has anyone observed you stop No 12/12/23 13:02 breathing during sleep? STOP Results Negative 12/12/23 13:02 QUESTION #5 FULL TEXT : Do you snore loudly (louder than talking or can be heard through closed doors)? Tobacco Use History Tobacco Use History - electrical foreman: Tobacco Use History - electrical foreman Tobacco Use Smoking Status Former smoker 12/12/23 13:02 Hx Tobacco Use No 12/12/23 13:02 Years Smoking Packs Smoked per Day Smoking Cessation Date was Yes - quit smoking within 15 12/12/23 13:02 within the last 15 years years Hx Smoking Cessation Date 02/12/18 12/12/23 13:02 Hx Smoking Cessation Counseling Hematologic Medial History Hematologic Hx - electrical foreman: Hematologic Medical Hx - computer repairer Hx of Blood Transfusion Yes 12/12/23 13:02 Hx of Transfusion in last 3 No 12/12/23 13:02 Months Date of Last Transfusion (if within last 3 months) Ever experience any problems No 12/12/23 13:02 with transfusion(s)? Specify any problems Hx of Preganancy in last 3 N/A 12/12/23 13:02 Months Nurse Filling Out Transfusion NBUCHER 12/12/23 13:02 & Questions: Date: 12/12/23 12/12/23 13:02 Time: 13:04 12/12/23 13:02 Patient unable to answer at this time (ie. confused, unrespo /Reproduction History /Reproductive History - electrical foreman: /Reproductive Hx- electrical foreman Hx Now No 12/12/23 13:02 Gestational Age (in weeks): EDC: Hx Hx Para Hx Section SAB No 12/12/23 13:02 Active Medications Active Medications: Current Medications Generic Name Dose Route Start Last Admin Trade Name Freq PRN Reason Stop Dose Admin Lactated Ringer's 1,000 mls @ 15 mls/hr 12/18/23 12:45 12/18/23 12:53 IV 12/24/23 02:04 15 mls/hr .Q48H [place] Administration Protocol [facility] Medical History Wears glasses Broken teeth Anxiety History of steroid therapy Rash Thyroid disease Low iron Migraine headache PONV (postoperative nausea and vomiting) Pancreatitis Former smoker Hypothyroidism Acute pancreatitis Home Medications ?Medication ?Instructions ?Recorded ?Last Taken ?Type dextroamphetamine-amphetamine ER 15 mg PO BID 03/05/21 Unknown History 15 mg 24hr capsule,extend release levothyroxine 25 mcg tablet 25 mcg PO DAILY 03/30/23 Unknown History prednisone 5 mg tablets in a dose See Rx Instructions PO .COMPLEX 12/12/23 Unknown History pack Allergy/AdvReac Type Severity Reaction Status Date / Time Penicillins Allergy Severe Rash Verified 12/18/23 12:43 Surgical History History of ERCP History of cholecystectomy Social History Smoking Status: Former smoker Review of Systems (Anesthesia) ROS Narrative System reviewed and no additional complaints, except as documented.
--- NOTE | 2023-12-18 14:00 | HP.PCM_ITS ---
History and Physical Date of Admission: 12/18/23 *[facility] hospitalization 03.30.23-04.02.23 for management of choledochocele with pancreatitis. ? CT abd/pel IV only 03.30.23 prominent biliary duct dilation s/p cholecystectomy; ?choldedochocele/lesion extending into lumen of duodenum ? MRCP 03.31.23 s/p cholecystectomy; filling defects of bile duct, stones ? ERCP 04.02.23 entire MBD markedly dilated, obstructing stone; choledocholithiasis found without complete removal; stent placed CBD; left MHD dilated [facility] hospitalization 04.03.23-04.06.23 for management of acute pancreatitis following recent hospitalization for gallstone pancreatitis s/p ERCP ? ERCP 04.04.23 entire MBD dilated, obstructing stone, biliary sphincterotomy/balloon; s/p cholecystectomy; stent removed from biliary tree OV 04.27.23- Pt states she is feeling well since the hospital. Still has intermittent RUQ pain but is getting better. Appetite is good. States her BM have improved. Has had longtime constipation but since the hospital stay, she is going consistently everyday. No other concerns. ROS Const Constitutional: No fatigue ENT ENT: No difficulty swallowing Gastro GI: Positive for abdominal pain, bloating, change in bowel habits, excessive flatus and nausea/dyspepsia; No belching, change in stool character, coffee ground emesis, constipation, cramping, diarrhea, heartburn, difficulty swallowing, feeling full early, incontinent of stools, Vomiting blood/hematemesis, Blood in stool, loose stools, Black,tarry stools, pain with swallowing, vomiting or other Musc Musculoskeletal: No joint pain Skin Skin: No yellowing of the eye or itchy eyes Psych Psychiatric: No anxiety and No depression Endo Endocrine: No fatigue Aller/Imm Allergy/Immunologic: No itchy eyes Charanjit/Lymp Hematologic/Lymphatic: No easy bleeding or easy bruising Exam Const General: cooperative and comfortable Nutritional Appearance: average body habitus and well nourished HENMT Head: normal to inspection Ears: hearing grossly normal bilaterally Nose: external nose normal Face and sinus: normal facial exam Mouth: oral mucosae normal Throat: posterior oropharynx normal Eyes General: appearance normal, both eyes and all related structures Neck Neck: normal visual inspection Chest Chest palpation & inspection: normal inspection of the chest and normal palpation of entire chest wall Resp Effort & Inspection: normal respiratory effort Auscultation: Bilateral: Clear to Auscultation Cardio Palpation: normal PMI Rate: regular rate Rhythm: regular rhythm GI Inspection: normal to inspection Auscultation: normal bowel sounds Percussion: normal to percussion Palpation: no hepatosplenomegaly Skin General: no rashes or lesions noted Neuro General: patient alert Extrem General: normal to inspection Psych Affect: normal affect Quality Reporting Tobacco Screening ([facility] 138) Smoking Status: Former smoker Assessment and Plan Assessment and Plan (1) History of biliary duct stent placement: Status: Acute (2) History of gallstones: Status: Acute (3) Obstruction of biliary stent: Status: Acute (4) Acute gallstone pancreatitis: Status: Acute Plan: 7-year-old female with past medical history as outlined was on the way to the ED on 04/03/2023 with a complaint of abdominal pain. Pain was sharp and squeezing in nature. She had recently been admitted from 03/30/2023 through 04/02/2023 for acute gallstone pancreatitis due to choledocholithiasis. She had ERCP done on 04/02/2023 and had a temporary stent placed. She was discharged home and says she felt better but subsequently started having pain again so she came back to the ED. AST and ALT were mildly elevated and lipase was elevated at 1259. She was admitted and managed for acute recurrent pancreatitis. She was started on IV Toradol and morphine and hydrated with IV fluids. She was kept n.p.o. and gastroenterology was consulted. Plan was for patient to have repeat ERCP. She did have repeat ERCP on 04/06/2023 which showed multiple stones in the lower third of the main bile duct with the largest being around 12 mm in diameter. The main bile duct was diffusely dilated with a stone causing obstruction with the largest diameter being 8 mm. She had sphincterotomy with sweeping of the biliary tree and removal of all the stones. 1 stent was removed from the biliary tree as it was found to be partially occluded. Bile duct was explored endoscopically using the spyglass direct visualization method. Patient's pain resolved after the ERCP and she felt much better. She remained stable and was discharged home on 04/06/2023. She will follow up in 5 months for stent removal. I have examined the patient and the H&P has been reviewed. There are no clinical changes since date of exam.
--- NOTE | 2023-12-18 14:45 | PCM.POST.ANE ---
Anesthesia: Postop Eval I Current Vital Signs Temperature: 97.8 F Pulse Rate: 87 Blood Pressure: 103/52 Respiratory Rate: 18 Pulse Ox: 98 Oxygen Delivery Method: Room Air Assessment Airway patent: Yes Spontaneous unlabored respirations: Yes Mental status: Awake nausea: No Vomiting: No Anesthesia Complication: No Fluid Hydration Crystalloid volume administer (ml): 800 Total IV fluid infused: 800 Progress Note Anesthesia document: Postop Eval 1 completed: Yes
--- NOTE | 2023-12-18 15:05 | OP.ERCP_ITS ---
Patient Name: Marilynn Hyde Procedure Date: 12/18/2023 1:59 PM Date of : 1985 Age: 38 Procedure: ERCP Indications: Bile duct stone(s), Biliary stent removal Providers: Grzegorz Pickens DO Referring MD: Dann Stokes Medicines: Monitored Anesthesia Care Patient Profile: This is a 38 year old female. Refer to note in patient chart for documentation of history and physical. Patient has symptoms of chronic right upper quadrant abdominal pain. Complications: No immediate complications. Procedure: Pre-Anesthesia Assessment: - Prior to the procedure, a History and Physical was performed, and patient medications and allergies were reviewed. The patient is competent. The risks and benefits of the procedure and the sedation options and risks were discussed with the patient. All questions were answered and informed consent was obtained. Patient identification and proposed procedure were verified by the physician in the pre-procedure area. Mental Status Examination: alert and oriented. Airway Examination: normal oropharyngeal airway and neck mobility. Respiratory Examination: clear to auscultation. CV Examination: normal. Prophylactic Antibiotics: The patient does not require prophylactic antibiotics. Prior Anticoagulants: The patient has taken no anticoagulant or antiplatelet agents. ASA Grade Assessment: II - A patient with mild systemic disease. After reviewing the risks and benefits, the patient was deemed in satisfactory condition to undergo the procedure. The anesthesia plan was to use monitored anesthesia care (MAC). Immediately prior to administration of medications, the patient was re-assessed for adequacy to receive sedatives. The heart rate, respiratory rate, oxygen saturations, blood pressure, adequacy of pulmonary ventilation, and response to care were monitored throughout the procedure. The physical status of the patient was re-assessed after the procedure. After obtaining informed consent, the scope was passed under direct vision. Throughout the procedure, the patient's blood pressure, pulse, and oxygen saturations were monitored continuously. The Duodenoscope was introduced through the mouth, and advanced to the duodenum and used to inject contrast into the bile duct. The ERCP was accomplished without difficulty. The patient tolerated the procedure well. Scope In: 2:27:23 PM Scope Out: 2:36:08 PM Total Procedure Duration Time 0 hours 8 minutes 45 seconds Findings: The drawing supervisor film was normal. The esophagus was successfully intubated under direct vision. The scope was advanced to a normal major papilla in the descending duodenum without detailed examination of the pharynx, larynx and associated structures, and upper GI tract. The upper GI tract was grossly normal. A long 0.025 inch Jagwire was passed into the biliary tree. The short-nosed traction sphincterotome was passed over the guidewire and the bile duct was then deeply cannulated. Contrast was injected. I personally interpreted the bile duct images. Ductal flow of contrast was adequate. Image quality was adequate. Contrast extended to the entire biliary tree. Opacification of the entire biliary tree was successful. The maximum diameter of the ducts was 10 mm. The lower third of the main bile duct and left main hepatic duct contained two stones, the largest of which was 6 mm in diameter. The entire biliary tree was diffusely dilated, with a stone causing an obstruction. The largest diameter was 10 mm. A cholecystectomy had been performed. A 5 mm biliary sphincterotomy was made with a traction (standard) sphincterotome using ERBE electrocautery. There was no post-sphincterotomy bleeding. The biliary tree was swept with a 12 mm balloon starting at the bifurcation, left main hepatic duct and right main hepatic duct. Sludge was swept from the duct. All stones were removed. One stent was removed from the biliary tree using a snare and sent for cytology. The stent was found to be occluded via the water column test. Impression: - The entire biliary tree was dilated, with a stone causing an obstruction. - The patient has had a cholecystectomy. - Choledocholithiasis was found. Complete removal was accomplished by biliary sphincterotomy and balloon extraction. - A biliary sphincterotomy was performed. - The biliary tree was swept. - One stent was removed from the biliary tree. Procedure Code(s): --- Professional --- 15193, Endoscopic retrograde cholangiopancreatography (ERCP); with removal of foreign body(s) or stent(s) from biliary/pancreatic duct(s) 86417, Endoscopic retrograde cholangiopancreatography (ERCP); with removal of calculi/debris from biliary/pancreatic duct(s) 76279, Endoscopic retrograde cholangiopancreatography (ERCP); with sphincterotomy/papillotomy 39000, 26, Endoscopic catheterization of the biliary ductal system, radiological supervision and interpretation CPT copyright 2021 [employer]. All rights reserved. The codes documented in this report are preliminary and upon visual basic .net developer review may be revised to meet current compliance requirements. Grzegorz Pickens DO 12/18/2023 3:04:36 PM This report has been signed electronically. Number of Addenda: 0 Note Initiated On: 12/18/2023 1:59 PM
--- NOTE | 2023-12-18 15:05 | OP.CCLET_ITS ---
12/18/2023 Dann Stokes Re : ERCP procedure for Marilynn Hawthorner Divya This procedure was performed on Monday, December 18, 2023. My impressions and recommendations are as follows: Impressions : - The entire biliary tree was dilated, with a stone causing an obstruction. - The patient has had a cholecystectomy. - Choledocholithiasis was found. Complete removal was accomplished by biliary sphincterotomy and balloon extraction. - A biliary sphincterotomy was performed. - The biliary tree was swept. - One stent was removed from the biliary tree. Recommendations : My findings are described in the full procedure note, which is enclosed. If I can be of further assistance, please feel free to contact me at . Sincerely, Grzegorz Pickens, 12/18/2023 3:04:36 PM This report has been signed electronically.
[2023-12-18] MEDS: traMADol 50 MG Tablet PO (15:39)
--- NOTE | 2023-12-18 16:31 | POSTOPAN2_ITS ---
Anesthesia Postop Eval I Sum Postop Eval Completion status Anesthesia document: Postop Eval 1 completed: Yes Anesthesia Postop Eval I Summary Anesthesia Postop Eval I Summary: Anesthesia Postop Eval I: Assessment Summary Airway patent Yes 12/18/23 14:47 MACHINE SETTER SHEET METAL.HBARR Spontaneous unlabored Yes 12/18/23 14:47 MACHINE SETTER SHEET METAL.HBARR respirations Mental status Awake 12/18/23 14:47 MACHINE SETTER SHEET METAL.HBARR nausea No 12/18/23 14:47 MACHINE SETTER SHEET METAL.HBARR Vomiting No 12/18/23 14:47 MACHINE SETTER SHEET METAL.HBARR Anesthesia Postop Eval I: Fluid Summary Crystalloid volume administer 800 12/18/23 14:47 MACHINE SETTER SHEET METAL.HBARR (ml) Colloids volume administered ( ml) Blood Product volume administered (ml) Total IV fluid infused 800 12/18/23 14:47 MACHINE SETTER SHEET METAL.HBARR Anesthesia Postop Eval I: Summary Notes Anesthesia Complication No 12/18/23 14:47 MACHINE SETTER SHEET METAL.HBARR Anesthesia Complication Comment: Post-operative progress note Anesthesia: Postop Eval II Evaluation Mental status: Awake Pain Level: 0 nausea: No Vomiting: No
--- NOTE | 2023-12-18 16:31 | PCM.POSTANE2 ---
Anesthesia Postop Eval I Sum Postop Eval Completion status Anesthesia document: Postop Eval 1 completed: Yes Anesthesia Postop Eval I Summary Anesthesia Postop Eval I Summary: Anesthesia Postop Eval I: Assessment Summary Airway patent Yes 12/18/23 14:47 PROGRAM SPECIALIST.HBARR Spontaneous unlabored Yes 12/18/23 14:47 PROGRAM SPECIALIST.HBARR respirations Mental status Awake 12/18/23 14:47 PROGRAM SPECIALIST.HBARR nausea No 12/18/23 14:47 PROGRAM SPECIALIST.HBARR Vomiting No 12/18/23 14:47 PROGRAM SPECIALIST.HBARR Anesthesia Postop Eval I: Fluid Summary Crystalloid volume administer 800 12/18/23 14:47 PROGRAM SPECIALIST.HBARR (ml) Colloids volume administered ( ml) Blood Product volume administered (ml) Total IV fluid infused 800 12/18/23 14:47 PROGRAM SPECIALIST.HBARR Anesthesia Postop Eval I: Summary Notes Anesthesia Complication No 12/18/23 14:47 PROGRAM SPECIALIST.HBARR Anesthesia Complication Comment: Post-operative progress note Anesthesia: Postop Eval II Evaluation Mental status: Awake Pain Level: 0 nausea: No Vomiting: No
== END 2023-12-18 15:45 | disposition home or self-care (01) ==
LOC: EN 12:28 → AC 12:30
PROVIDERS: Anesthesiology; PCP Nurse Practitioner Family; Referring Provider Nurse Practitioner Family; Visit Provider Internal Medicine Gastroenterology
PROC: (CPT 43260; principal; 2023-12-18 13:10)
DX: K85.10 Biliary acute pancreatitis without necrosis or infection (principal); K80.51 Calculus of bile duct without cholangitis or cholecystitis with obstruction; E03.9 Hypothyroidism, unspecified; Z79.899 Other long term (current) drug therapy; Z87.891 Personal history of nicotine dependence
CPT/HCPCS: 43275; 43264; 43262; 74330; 76000; 81025; 88108; 88305; 88313; 93005; J7120; J2405

== ENCOUNTER 2023-12-18 20:40 | Emergency (ER) | payer OTHER, SELFPAY ==
[2023-12-18 20:41] VITALS: BP 122/92; PULSE 80; RESP 16; TEMP 37.1; O2SAT 100; BMI 38.1
--- NOTE | 2023-12-18 20:45 | EKG12_ITS ---
Test Reason : preop Blood Pressure : */* mmHG Vent. Rate : 73 BPM Atrial Rate : 73 BPM P-R Int : 134 ms QRS Dur : 86 ms QT Int : 376 ms P-R-T Axes : -16 50 61 degrees QTcB Int : 414 ms Normal sinus rhythm Normal ECG When compared with ECG of 01-Apr-2023 05:33, No significant change was found Confirmed by Amrik Arnold ([id number]), primer expeditor and drier LISSETTE ANDERSON ([id number]) on 12/20/2023 5:55:54 AM Referred By: Confirmed By: Amrik Arnold
--- NOTE | 2023-12-18 20:50 | RAD_ITS ---
EXAM: XR CHEST, 1 VIEW CLINICAL INDICATION: chest pain TECHNIQUE: Frontal view of the chest. COMPARISON: No relevant prior studies available. FINDINGS: LUNGS AND PLEURAL SPACES: Unremarkable. No consolidation or edema. No pneumothorax. No effusion. HEART: Unremarkable. Cardiac silhouette not enlarged. MEDIASTINUM: Central airways and mediastinal contour are unremarkable. BONES/JOINTS: Unremarkable. No acute fracture. SOFT TISSUES: Unremarkable. RAD/Chest 1 View (Portable) IMPRESSION: No radiographic evidence of acute cardiopulmonary disease. Electronically Signed: Travon Cross MD at 21:19 EST ,
[2023-12-18 21:00] LABS: Absolute Lymphocyte Count 2.75 X10^3/uL (0.83-4.51); Absolute Neutrophil Count 15.1 X10^3/uL (2.0-7.7); Basophil# 0.05 X10^3/uL; Basophil% 0.3 % (0-1); Eosinophils% 0.5 % (0-5); Hematocrit 37.1 % (37-47); Hemoglobin 12.6 g/dL (12.0-15.0); Lymphocyte # 2.75 X10^3/ul (0.83-4.51); Lymphocyte % 14.2 % (19-41); Mean Corpuscular Hgb 28.4 pg (27.0-32.0); Mean Corpuscular Volume 83.6 fL (81-99); Mean Platelet Vol. 8.6 fl (6.2-12.0); Monocyte# 1.14 X10^3/uL; Monocyte% 5.9 % (0-10); NRBC Flagged by Analyzer 0 % (0-5); Neutrophil # 15.14 X10^3/uL (2.7-7.7); Neutrophil % 78.4 % (47-70); Platelet Count 471 K/mm3 (150-450); RBC Distribution Width CV 13.3 % (11.6-14.6); RBC Distribution Width SD 40.6 fl (35.1-43.9); Red Blood Count 4.44 M/mm3 (4.2-5.4); White Blood Count 19.3 K/mm3 (4.4-11.0)
[2023-12-18 21:04] VITALS: O2SAT 98
--- NOTE | 2023-12-18 21:06 | EDS_ITS ---
HPI History of Present Illness Chief Complaint: Chest Pain [facility] Medical History Wears glasses Broken teeth Anxiety History of steroid therapy Rash Thyroid disease Low iron Migraine headache PONV (postoperative nausea and vomiting) Pancreatitis Former smoker Hypothyroidism Acute pancreatitis Home Medications ?Medication ?Instructions ?Recorded ?Last Taken ?Type dextroamphetamine-amphetamine ER 15 mg PO BID 03/05/21 Unknown History 15 mg 24hr capsule,extend release levothyroxine 25 mcg tablet 25 mcg PO DAILY 03/30/23 Unknown History prednisone 5 mg tablets in a dose See Rx Instructions PO .COMPLEX 12/12/23 Unknown History pack oxycodone 5 mg capsule 5 mg PO Q6H PRN pain 3 days #12 12/18/23 Unknown Rx caps tramadol 50 mg tablet 50 mg PO BID PRN pain 7 days #14 12/18/23 Unknown Rx tabs Allergy/AdvReac Type Severity Reaction Status Date / Time Penicillins Allergy Severe Rash Verified 12/18/23 20:41 Surgical History History of ERCP History of cholecystectomy Social History (Updated 12/18/23 @ 21:05 by Shandra Herndon) housing: house Smoking Status: Former smoker EXAM Physical Exam Const Vital Signs: 12/18/23 20:41 12/18/23 21:04 12/18/23 21:04 Temperature 98.7 F Temperature Source Oral Pulse Rate 80 Respiratory Rate 16 Respiratory Effort Normal Non-Labored Blood Pressure 122/92 H Blood Pressure Mean 102 Pulse Ox 100 98 Oxygen Delivery Method Room Air Room Air 12/18/23 21:41 12/18/23 22:00 Temperature Temperature Source Pulse Rate 62 61 Respiratory Rate 12 16 Respiratory Effort Blood Pressure 137/80 H 137/80 H Blood Pressure Mean 99 99 Pulse Ox 98 98 Oxygen Delivery Method MDM MDM MDM Narrative Medical decision making narrative: HISTORY OF PRESENT ILLNESS: 38-year-old female presents with chest pain. Notes sharp burning left-sided becca st pain that radiates to back started approximately 6 PM. She notes associated shortness of breath. Notes chest pain started 2 hours ago but is left-sided is not ripping or tearing. Does radiate to her back. Denies cough fever chills. Denies leg swelling. Denies any bleeding diathesis. Patient denies sudden onset of pain, no tearing sensation, no migratory symptoms, no new numbness, weakness or loss of sensation. Patient denies family history or personal history of Marfan syndrome or Anel-Danlos. The patient denies recent surgery in the last 4 weeks or immobilization in the last 3 days, denies previous diagnosis of DVT or PE, hemoptysis, unilateral leg swelling or malignancy with treatment the last 6 months. No estrogen use noted. REVIEW OF SYSTEMS: All other systems reviewed and are negative except as noted in the history of present illness. At least 10 review of systems reviewed and are negative except as noted in history of present illness. PHYSICAL EXAM: Nursing triage notes reviewed, Vital signs reviewed Constitutional: please see mdm HENT: MMM Eyes: Pupils equal round and reactive to light, Extraocular muscles intact Neck: No stridor, no JVD, full neck ROM Lungs: Clear to auscultation, No wheezing or rales. No increased work of breathing, no conversational dyspnea, no accessory muscle use, no nasal flaring. No respiratory distress noted Heart: Regular rate and rhythm, No murmurs, No rubs and No gallops, 2+ distal pulses (radial, femoral, posterior tibial) in all extremities Abdomen: Soft, there is no tenderness, rigidity, rebound or guarding, no obvious peritoneal signs, no palpable pulsatile abdominal masses, no auscultated abdominal bruit : No CVAT Extremities: No edema Neuro: No focal neurological deficits, cranial nerves II through XII intact, 5/5 strength in all extremities. Intact sensation to light touch in all extremities, 2+ reflexes bilateral patella tendons. Normal gait. No ataxia. Skin: No rash or lesions noted MEDICAL DECISION MAKING: Chief Complaint: Chest pain External records reviewed: Reviewed prior allergies, problem list Factors affecting care:Gallstone pancreatitis, history of biliary stent Social determinants of health: None History obtained from others: Mother Consults: none [facility] Narrative: The patient was hemodynamically stable, afebrile and nontoxic-appearing no pulse deficits. She was in significant distress secondary to pain. This was treated with 4 mg IV morphine and 15 mg of IV Toradol, 20 mg of IV Pepcid. No focal neurologic deficits. Bilateral breath sounds. I considered the following differential diagnosis: ACS, arrhythmia, anemia, electrolyte abnormality, pneumonia, pneumothorax, GI etiology, PE ALL IMAGES (IF OBTAINED) HAVE BEEN PERSONALLY REVIEWED AND INTERPRETED BY MYSELF. EKG with normal sinus rhythm, normal axis, normal intervals, no STEMI CBC with marked leukocytosis, no anemia or thrombocytopenia noted High-sensitivity troponin is negative, no evidence of myocardial ischemia I have personally reviewed the patient's chest x-ray. Chest x-ray is unremarkable for pulmonary edema, pneumothorax, pneumonia or focal cardiopulmonary abnormality. CT of the chest is negative BMP without evidence of significant electrolyte abnormalities, no anion gap, no acute kidney injury. No clear life-threatening etiology. Waiting delta troponin. Signed out to p.m. physician with delta troponin and final disposition. Patient likely be discharged troponin is negative. The patient and/or family, caregivers express understanding. The patient and/or family, caregivers agrees with the plan. Total critical care time today provided was at least 0 minutes. This excludes separately billable procedures. Critical care time (if documented) is secondary to the patient having high probability of clinically significant/life threatening deterioration in the patient's condition which required my urgent intervention. Impression: 1. Chest pain 2. History of ERCP Disposition: Pending repeat troponin Cleve Salazar DO Lab Data Labs: Laboratory Results - last 24 hr 12/18/23 20:52 WBC 19.3 H RBC 4.44 Hgb 12.6 Hct 37.1 MCV 83.6 MCH 28.4 MCHC 34.0 RDW Std Deviation 40.6 RDW Coeff of Lydia 13.3 Plt Count 471 H MPV 8.6 Immature Gran % (Auto) 0.700 Neut % (Auto) 78.4 H Lymph % (Auto) 14.2 L [place] % (Auto) 5.9 Eos % (Auto) 0.5 Baso % (Auto) 0.3 Absolute Neuts (auto) 15.1 H Absolute Lymphs (auto) 2.75 Nucleated RBC % 0 Sodium 134 L Potassium 4.3 Chloride 102 Carbon Dioxide 24.0 Anion Gap 8 BUN 7 Creatinine 0.64 Estim Creat Clear Calc 137.57 Est GFR (MDRD) Af Amer 134 Est GFR (MDRD) Non-Af 110 BUN/Creatinine Ratio 11.0 Glucose 139 H Calcium 9.3 Troponin I High Sens < 3 L Radiography Diagnostic Testing: Clinical Impression(s) from Imaging Studies Chest X-Ray 12/18/23 20:50 IMPRESSION: No radiographic evidence of acute cardiopulmonary disease. Electronically Signed: Travon Cross MD at 21:19 EST , Chest CTA 12/18/23 21:25 IMPRESSION: Negative CTA chest. Electronically Signed: Travon Cross MD at 22:35 EST , Discharge Plan Triage Chief Complaint: Chest Pain ED Provider: Cleve Salazar Dx/Rx/DC Orders Instructions: Chest Pain [facility] Prescriptions: New oxycodone 5 mg capsule 5 mg PO Q6H PRN (Reason: pain) 3 Days Qty: 12 0RF No Action dextroamphetamine-amphetamine 15 mg capsule,extended release 24hr 15 mg PO BID prednisone 5 mg tablets,dose pack See Rx Instructions .ROUTE .COMPLEX Rx Instructions: prednisone 5 mg: take 8 tablets (40 mg) on Day 1; 7 tablets (35 mg) on Day 2; then decrease by 1 tablet every day until finished levothyroxine 25 mcg tablet 25 mcg PO DAILY Patient Comments: TAKE 1 TABLET BY MOUTHCONCE DAILY tramadol 50 mg tablet 50 mg PO BID PRN (Reason: pain) 7 Days Qty: 14 0RF Primary Care Provider: Dann Stokes NP Referrals: Dann Stokes NP, [facility] [Primary Care Provider] - Activity Restrictions/Additional Instructions: Thank you for trusting us with your care today! Please take Tylenol (2 pills, 650 mg), ibuprofen (2 pills, 400 mg) every 6 hours as needed for pain and fever control. Please take oxycodone as needed for pain. Please return to the emergency department if your symptoms change or worsen. Please follow with your primary care physician for further outpatient evaluation and management. Follow-up with Gastroenterology. Print Language: Gabonese Disposition Disposition: Home, Self Care
[2023-12-18 21:23] LABS: Anion Gap 8 (5-15); BUN 7 mg/dL (7-18); Calcium,Total 9.3 mg/dL (8.5-10.1); Chloride 102 mmol/L (98-107); Creatinine, Serum 0.64 mg/dL (0.55-1.02); EST Glomerular Filtration Rate 110 mL/min (>60); Est Glom Filt Rate - Afr Amer 134 mL/min (>60); Estimated Creatinine Clearance 137.57 ml/min; Glucose 139 mg/dL (74-106); Potassium 4.3 mmol/L (3.5-5.1); Sodium Level 134 mmol/L (136-145); Troponin-I HS (w/2H Reflex) < 3 pg/mL (3.0-54.0)
--- NOTE | 2023-12-18 21:25 | CT_ITS ---
EXAM: CT ANGIOGRAPHY CHEST WITHOUT AND WITH INTRAVENOUS CONTRAST CLINICAL INDICATION: left sided chest pain TECHNIQUE: Helically acquired angiography images were obtained of the chest without and with intravenous contrast. This CT exam was performed using one or more of the following dose reduction techniques: automated exposure control, adjustment of the mA and/or kV according to patient size, and/or use of iterative reconstruction technique. MIP reconstructed images were created and reviewed. CONTRAST: IV 100mL [id number] COMPARISON: No relevant prior studies available. FINDINGS: PULMONARY ARTERIES: Unremarkable. Normal in caliber. No evidence of pulmonary embolism. AORTA: Unremarkable. Normal in caliber. No evidence of dissection. GREAT VESSELS OF AORTIC ARCH: Unremarkable. Normal in caliber. No evidence of dissection. LUNGS AND PLEURAL SPACES: Unremarkable. No mass. No consolidation or edema. No pleural effusion or thickening. No pneumothorax. HEART: Unremarkable. Heart size is normal. No pericardial effusion. No significant coronary artery calcifications. MEDIASTINUM: Unremarkable. No mediastinal or hilar adenopathy. Esophagus is unremarkable. No hiatal hernia. THYROID: Unremarkable. No thyroid lesions. BONES/JOINTS: Unremarkable. No suspicious lytic or blastic abnormality. CT/CTA Chest W/WO Contrast IMPRESSION: Negative CTA chest. Electronically Signed: Travon Cross MD at 22:35 EST ,
--- OUTSIDE RECORDS SUMMARY | 2023-12-18 21:26 | XMS RPT_ITS | CCD ---
Author Organization [facility] Inform ion Partnership [facility] Care Team Providers Care [employer] Consultant Name Role Phone NELIDA WEI Unavailable Unavailable SADA EDWARDS - STARTING GATE DRIVERSHARAN Primary Care Phys ician NITIN EDWARDS-MARY, KAMILAH Sloan Attending Jada TOMLIN APRN - SHARAN HERNANDEZ Primary Care U kobeailJONAH Beckham Attending Unavailable JONAH SMITH Primary Care Unavailable JONAH SMITH Admitting Unavailable Allergies Allergy Classification Reported Allergen(s) Allergy Type Date of Onset Reaction(s) Facility (1 source) Penicillin; Translations: [penicillins] Drug Allergy Eruption of skin (disorder) [facility] Medications Current Medications Medication Drug Class(es) Dates Sig (Normalized) Sig (Original) cholecalciferol 1.25 mg oral capsule (1 source) Vitamin D Start: 10-09-2022 End: 04-07-2023 cholecalciferol 1250 mcg (50,000 intl units) oral capsule Dose : 50,000 International_Unit = 1 cap(s), Oral, qmonth, # 4 cap(s), 1 Refill(s), Pharmacy: [facility], Vitamin D deficiency, 162, [...] generic, # 90 tab(s), 0 Refill(s), Pharmacy: [facility], RAMONITA (generalized anxiety disorder), 163.5, cm, 01/08/23 8:45:00 EST, Height, kg, 01/08/23 8:45:00 EST, Dosing Weight Start Date: 01/08/23 Stop Date: 04/08/23 Status: Ordered levothyroxine sodium 0.025 mg oral tablet (1 source) l-Thyroxine Start: 10-09-2022 End: 04-07-2023 levothyroxine 25 mcg (0.025 mg) oral tablet Dose : 25 mcg = 1 tab(s), Oral, qDay, # 90 tab(s), 1 Refill(s), Pharmacy: [facility], Hypothyroidism in adult, 162, [...] generic, # 60 cap(s), 0 Refill(s), Pharmacy: [facility] ADD (attention deficit disorder), 163.5, cm, 01/08/23 [...] Onset: 02-08-2023 Episodic Unclassified (1 source) [place] [employer] DRIVER SCREENING Onset: 07-17-2017 Results Test Name Value Interpretation Reference Range Facility QUANTIFERON TB INCUBATED [CC L]on 08-12-2023 Mitogen minus Nil >9.95 Normal >=0.50 [facility] Comment on above: Performed By: #### 2 [id number] #### [facility],[address] [place] [address] 68832 TB Gamma Interpretation Infection with M. tuberculosis complex is unlikely. If latent tuberculosis infec Normal [facility] Comment on above: Result Comment: [facility] [address] [place] [address] Johnny Casas III, M.D. [id number] Performed By: #### 2 49875 #### [facility],[address] [place] [address] 12527 TB NIL 0.05 IU/mL Normal <=8.00 [facility] Comment on above: Performed By: #### 2 32818 #### [facility],[address] [place], [place] [id number] TB Result Negative Normal [facility] Comment on above: Performed By: #### 2 96562 #### [facility],[address] [place] [address] 17950 TB1 Ag minus Nil 0.00 IU/mL Normal <0.35 [facility] Comment on above: Performed By: #### 2 03553 #### [facility],[address] [place] [address] 48890 TB2 Ag minus Nil <0.00 Normal <0.35 [facility] Comment on above: Performed By: #### 2 38925 #### [facility],[address] [place] [address] 53766 HEP B SURFACE AB, QUANT [CCL ]on 08-10-2023 HepB Surface Ab,Qual Positive Normal [facility] Comment on above: Result Comment: Cons istent with serological evidence of immunity to Hepatitis B Virus. Performed By: #### 2 20885 #### [facility],[address] [place] [address] 43201 HepB SurfaceAb,Quant 45.10 mIU/mL Normal [facility] Comment on above: Result Comment: <8 m IU/mL: No serological evidence of immunity to Hepatitis B Virus. >/= 8 to <12 mIU/mL: No serological evidence of immunity to Hepatitis B Virus. >/= 12 mIU/mL: Consistent with serological evidence of immunity to Hepatitis B Virus. [place] [id number] Johnny Casas III, M.D. [id number] Performed By: #### 2 83825 #### [facility],[address] [place] [address] 92766 MEASLES IGG ANTIBODY [CCL]on 08-10-2023 Measles IgG, Qual Positive Normal Positive [facility] Comment on above: Result Comment: The result suggests recent or past exposure to Measles virus or Measles vaccination. The current test does not detect neutralizing antibodies. Positive result may also be seen due to presence of passively-transferred antibodies. Please correlate [place] [address] Johnny Casas III, M.D. [id number] Performed By: #### 2 80556 #### [facility],[address] [place] [address] 15186 MUMPS IGG AB [CCL]on 024 Mumps IgG, Qual Positive Normal Positive [facility] Comment on above: Result Comment: The result suggests recent or past exposure to Mumps virus or Mumps vaccination. The current test does not detect neutralizing antibodies. Positive result may also be seen due to presence of passively-transferred antibodies. Please correlate with patient's history. [place] [id number] Johnny Casas III, M.D. [id number] Performed By: #### 2 72428 #### [facility],[address] [place] [address] 55577 RUBELLA IgG ANTIBODY [CCL]on 08-10-2023 Rubella IgG Ab, Qual Positive Normal Positive [facility] Comment on above: Result Comment: The result suggests recent or past exposure to Rubella virus or history of Rubella vaccination. Positive result may also be seen due to presence of passively-transferred antibodies. Please correlate [place] [address] Johnny Casas III, M.D. [id number] Performed By: #### 2 36973 #### [facility],[address] [place], [place] [address] BLOOD TB SCREEN, INCUBATED 08-09-2023 M. tuberculosis tuberculin stim IFN-g Ql (Bld) Negative Normal [facility] Comment on above: Order Comment: Kyle moser Type: BLOOD SPECIMEN [facility] Address: [address] [place] [address] Performed By: #### I NTPGP #### [facility] CLIA [id number] [address] [place] [address] [place] MITOGEN MINUS NIL >9.95 Normal >=0.50 [facility] Comment on above: Order Comment: Kyle moser Type: BLOOD SPECIMEN [facility] Address: [address] [place] [address] Performed By: #### I NTPGP #### [facility] CLIA [id number] [address] [place] [address] [place] TB GAMMA INTERPRETATION Infection with M. tuberculosis complex is unlikely. If latent tuberculosis infection is highly suspected, a negative result does not rule out the infection. Specimens from immunocompromised patients and those <5 years of age may show false negative results. In case of a contact investigation, please repeat 8-12 weeks after a known exposure. Normal [facility] Comment on above: Order Comment: Kyle moser Type: BLOOD SPECIMEN [facility] Address: [address] [place] [address] Performed By: #### I NTPGP #### [facility] CLIA [id number] [address] [id number] [address] [place] TB NIL 0.05 IU/mL Normal <=8.00 [facility] Comment on above: Order Comment: Speci men Type: BLOOD SPECIMEN [facility] Address: [address] [place] [address] Performed By: #### I NTPGP #### [facility] CLIA [id number] [address] [place] [address] [place] TB1 AG MINUS NIL 0.00 IU/mL Normal <0.35 [facility] Comment on above: Order Comment: Speci men Type: BLOOD SPECIMEN [facility] Address: [address] [place] [address] Performed By: #### I NTPGP #### [facility] CLIA [id number] [address] [place] [address] [place] TB2 AG MINUS NIL <0.00 Normal <0.35 [facility] Comment on above: Order Comment: Speci men Type: BLOOD SPECIMEN [facility] Address: [address] [place] [address] Performed By: #### I NTPGP #### [facility] CLIA [id number] [address] [place] [address] [place] HBV surface Ab Ql (S)on 07-14 HBV surface Ab Qn (S) 45.10 mIU/mL Normal [facility] Comment on above: Order Comment: Speci men Type: BLOOD SPECIMEN [facility] Address: [address] [place] [address] Result Comment: <8 m IU/mL: No serological evidence of immunity to Hepatitis B Virus. >/= 8 to <12 mIU/mL: No serological evidence of immunity to Hepatitis B Virus. >/= 12 mIU/mL: Consistent with serological evidence of immunity to Hepatitis B Virus. Performed By: #### M EASLG, 21739-5 #### [facility] CLIA [id number] [address] [place] [address] [place] HBV surface Ab Ser Qlon 07-14 HBV surface Ab Ql (S) Positive Normal [facility] Comment on above: Order Comment: Speci men Type: BLOOD SPECIMEN [facility] Address: [address] [place] [address] Result Comment: Cons istent with serological evidence of immunity to Hepatitis B Virus. Performed By: #### M EASLG, 93867-7 #### [facility] CLIA [id number] [address] [place] [address] OF [facility] LIPID PROFILEon 08-09-2023 Cholesterol [Mass/Vol] 236 mg/dL Normal 0 - 240 [facility] Comment on above: Performed By: #### 2 73672 #### [facility],[address] [place] [address] 76527 Cholesterol in HDL [Mass/Vol] 52 mg/dL Normal 40 - 60 [facility] Comment on above: Performed By: #### 2 83520 #### [facility],[address] [place] [address] 53389 Cholesterol in LDL [Mass/Vol] 144 mg/dL High 0 - 129 [facility] Comment on above: Performed By: #### 2 58592 #### [facility],[address] [place] [address] 96835 Cholesterol.total/C holesterol in HDL [Mass ratio] 4.5 {ratio} Normal 0.0 - 5.0 [facility] Comment on above: Performed By: #### 2 10291 #### [facility],[address] [place] [address] 07900 Lipid 1996 panel Normal [facility] Comment on above: Result Comment: LIPI D PROFILE Performed By: #### 2 62453 #### [facility],[address] [place] [address] 99838 Triglyceride [Mass/Vol] 201 mg/dL High 0 - 150 [facility] Comment on above: Performed By: #### 2 73218 #### [facility],[address] [place], [place] [address] MUMPS IGG ABon 08-09-2023 MuV IgG Ql (S) Positive Normal Positive [facility] Comment on above: Order Comment: [facility] Type: BLOOD SPECIMEN [facility] Address: [address] [place] [address] Result Comment: The result suggests recent or past exposure to Mumps virus or Mumps vaccination. The current test does not detect neutralizing antibodies. Positive result may also be seen due to presence of passively-transferred antibodies. Please correlate with patient's history. Performed By: #### M UMPSG #### [facility] CLIA [id number] [address] [place] [address] [place] RUBELLA IGG ANTIBODYon 08-08 RUBELLA IGG AB, QUAL Positive Normal Positive [facility] Comment on above: Order Comment: [facility] Type: BLOOD SPECIMEN [facility] Address: [address] [place] [address] Result Comment: The result suggests recent or past exposure to Rubella virus or history of Rubella vaccination. Positive result may also be seen due to presence of passively-transferred antibodies. Please correlate with patient's history. Performed By: #### R UBIGG #### [facility] CLIA [id number] [address] [place] [address] [place] RUBEOLA (MEASLES)IGGon 08-08 MEASLES IGG AB, QUAL Positive Normal Positive [facility] Comment on above: Order Comment: [facility] Type: BLOOD SPECIMEN [facility] Address: [address] [place] [address] Result Comment: The result suggests recent or past exposure to Measles virus or Measles vaccination. The current test does not detect neutralizing antibodies. Positive result may also be seen due to presence of passively-transferred antibodies. Please correlate with patient's history. Performed By: #### M EASLG, 79233-4 #### [facility] CLIA [id number] [address] [place] [id number] [place] URINE COTININE TEST [NEW OLU BENÍTEZ]on 08-09-2023 COTININE Negative Normal NORMAL: NEGATIVE [facility] Comment on above: Result Comment: The COT [...] after nicotine use. Performed By: #### 2 10227 #### [facility],[address] [place] [address]32 [employer] Cytology Reporton 2023 [employer] Mechanical Engineer Cytology Report . Pathology Reports Accession: Collected Date/Time: Received Date/Time: Pathologist: [id number] 02/08/2023 11:53 EST 02/08/2023 18:00 EST [employer] Mechanical Engineer Cytology Report SPECIMEN: Specimen Description: Liquid Prep [...] and evaluated with the assistance of the Mandaep Test Imaging System. Pathology Reports Accession: Collected Date/Time: Received Date/Time: Pathologist: [id number] 02/08/2023 11:53 EST 02/08/2023 18:00 EST Electronically Signed by Pathology report verified by [facility] Screened by: KK Electronically signed by Adrianna ENGLISH (ASCP) Sign-Out Date: 02/15/2023 12:27 Performing Lab: [facility], [address] [place] [address] Pathology Dept Disclaimer The Pap test is a screening test for cervical cancer. As evidenced by published data, it is subject to both inherent false negative and false positive results. Your patient's results should be interpreted in context with pertinent clinical history including gynecological examination. Normal [facility] ([place]) HPVon 02-14-2023 HPV Interp Normal See Interp HPVN [facility] [place]) Comment on above: Order Comment: Order placed by AP_HPV_ORDER rule from [id number] Result Comment: High Risk HPV Typing: NEGATIVE [...] and sufficient DNA to be detected. See [facility] HPVN Performed By: #### H PV #### [place] [address] HPV Source Cervix Normal [facility] [place] Comment on above: Order Comment: Order placed by AP_HPV_ORDER rule from [id number] Performed By: #### H PV #### [place] [address] Encounters Encounter Date Encounter Type Care Provider Facility Start: 08-09-2023 End: 08-09-2023 ambulatory [facility] Start: 08-09-2023 Encounter for genera l adult medical examination without abnormal findings JONAH Severino [facility] Start: 02-08-2023 End: 02-13-2023 ambulatory KAMILAH TAVERAS OPERATIONS LEAD-STARTING GATE DRIVER Facility:B Start: 02-08-2023 End: 02-12-2023 Outreach Lab KAMILAH TAVERAS OPERATIONS LEAD-STARTING GATE DRIVER [facility] Start: 07-17-2017 Ambulatory NELIDA WEI Facility: [facility] Procedures Date Procedure Procedure Detail Performing Clinician Start: 02-13-2008 section KAMILAH TAVERAS OPERATIONS LEAD-STARTING GATE DRIVER Cholecystectomy KAMILAH BARCENAS Y OPERATIONS LEAD-STARTING GATE DRIVER Tonsillectomy KAMILAHMONI TAVERAS OPERATIONS LEAD-STARTING GATE DRIVER Immunizations Immunization Date Immunization Notes Care Provider Fa cili 12-16-2021 influenza virus vaccine, unspecified formulation KAMILAH TAVERAS OPERATIONS LEAD-STARTING GATE DRIVER [facility] [place] 01-13-2021 influenza, injectabl e, quadrivalent, contains preservative; Translations: [Fluarix PF Quadrivalent ] KAMILAH TAVERAS OPERATIONS LEAD-STARTING GATE DRIVER [facility] [place] 03-03-2020 SARS-CoV-2 mRNA (tozinameran) vaccine KAMILAH TAVERAS OPERATIONS LEAD-STARTING GATE DRIVER [facility] [place] Comment on above: Result Comment: 2020: TPVAL 02-23-2020 SARS-CoV-2 mRNA (tozinameran) vaccine KAMILAH TAVERAS OPERATIONS LEAD-STARTING GATE DRIVER [facility] [place] Comment on above: Result Comment: 2020: TPVAL 02-11-2020 SARS-CoV-2 mRNA (tozinameran) vaccine KAMILAH TAVERAS OPERATIONS LEAD-[facility] [place] Comment on above: Result Comment: 202205: TPVAL 10-20-2018 influenza virus vaccine, unspecified formulation KAMILAH COTTONSEY OPERATIONS LEAD-STARTING GATE DRIVER [facility] [place] 10-18-2018 influenza virus vaccine, unspecified formulation KAMILAH TAVERAS OPERATIONS LEAD-[facility] [place] 11-02-2017 influenza virus vaccine, unspecified formulation KAMILAH TAVERAS APRN-[facility] [place] 08-08-2017 measles/mumps/rubell a virus vaccine KAMILAH COTTONSEY OPERATIONS LEAD-[facility] [place] 08-08-2017 tetanus toxoid, redu lyle diphtheria toxoid, and acellular pertussis vaccine, adsorbed KAMILAH COTTONSEY OPERATIONS LEAD-[facility] Payers Date Payer Category Payer Unknown [id number] 1985 Unknown [id number] Self-pay Social History Date Type Detail Facility Start: 01-08-2023 Tobacco smoking status Ex-smoker (fi nding) [facility] [place] Sex Assigned At Female [facility] Evaluation + Plan note LaboratoryRadiology Note Date & Type Note Facility Evaluation + Plan note Future Appointments Appointment Date:04/09/2023 08:20:00 AM Scheduled Provider:SHARAN TOMLIN APRN, CNP Location:[facility] Appointment Type:PC OV Controlled Medication Diagnostic Tests PendingHPV Screen, DNA Probe 02/08/23 Future Scheduled TestsThyroid Stimulating Hormone 01/09/23Free T4 01/09/23Complete Blood Count 01/09/23Lipid Profile 01/09/23Vitamin D Level 01/09/23Complete Metabolic Panel 01/09/23MA Mammo Diagnostic Bilateral w/[place] 02/08/23US Breast Left Complete 02/08/23 [facility] Hospital course Narrative Note Date & Type Note Facility Hospital course Narrative No data available for this section [facility] Hospital Discharge instructions Note Date & Type Note Facility Hospital Discharge instructions No data available for this section [facility] Progress note Note Date & Type Note Facility Progress note No data available for this section [facility] Summary Purpose Family History No Family History Records Found No data available for this section No Family History Records FoundNo Family History Records FoundNo Family History Records Found Advance Directives No Advanced Directives Records FoundNo Advanced Directives Records FoundNo Advanced Directives Records FoundNo Advanced Directives Records Found Additional Source Comments INFORMATION SOURCE (unrecogn ized section and content) DATE CREATED AUTHOR 08/01/2017 [facility] DATE CREATED AUTHOR AUTHOR'S ORGANIZ ATION 07/03/2023 [facility] DATE CREATED AUTHOR AUTHOR'S ORGANIZ ATION 08/13/2023 [facility] DATE CREATED AUTHOR AUTHOR'S ORGANIZ ATION 08/13/2023 [facility] Patient Care team informatio n (unrecognized section and content) Care Team Personnel Name: SHARAN TOMLIN APRN - STARTING GATE DRIVER Position: P4 [employer] Mechanic Member Role: Primary Care Physician Address: Address: [address] [facility] [place] [address]- [place] Care Team Related Persons Name: SAHRA [...] BE BASED ON THE PRIMARY CLINICAL RECORDS. [facility] [email or web address] [facility]. provides no warranty or guarantee of the accuracy or completeness of information in this document.
[2023-12-18 21:41] VITALS: BP 137/80; PULSE 62; RESP 12; O2SAT 98
[2023-12-18] MEDS: Ketorolac 15 MG/ML Vial IV (21:45)
[2023-12-18] MEDS: Famotidine 200 MG/20 ML MDV 20 MG in 0.9% Normal Saline (Pres. free 8 ML 300 MG IV (21:45)
[2023-12-18] MEDS: Morphine 4 MG/ML Syringe IV (21:45)
[2023-12-18 22:00] VITALS: BP 137/80; PULSE 61; RESP 16; O2SAT 98
[2023-12-18 22:57] LABS: Reflex Troponin-HS? (from REC) Y
[2023-12-18 23:00] VITALS: BP 123/81; PULSE 80; RESP 20; O2SAT 98
[2023-12-18 23:32] LABS: Troponin-I HS < 3 pg/mL (3.0-54.0)
[2023-12-18 23:44] VITALS: BP 114/77; PULSE 74; RESP 16; TEMP 36.8; O2SAT 100
[2023-12-18] MEDS: Orphenadrine 100 MG Tablet PO (23:52)
[2023-12-18] MEDS: oxyCODONE 5 MG Tablet 10 MG PO (23:53)
== END 2023-12-18 23:57 | disposition home or self-care (01) ==
PROVIDERS: Emergency Provider Emergency Medicine; PCP Nurse Practitioner Family; Visit Provider Emergency Medicine
DX: R07.9 Chest pain, unspecified (principal); Z87.891 Personal history of nicotine dependence
CPT/HCPCS: 71045; 71275; 80048; 84484; 85025; 93005; 96374; 96375; 96376; 99284; Q9967; A4216; J3490

== ENCOUNTER 2024-01-30 17:03 | Outpatient (REF) | payer SELFPAY ==
[2024-01-30 17:04] VITALS: BP 144/91; PULSE 93; RESP 18; TEMP 36.6; O2SAT 99; BMI 38.2
--- NOTE | 2024-01-30 17:38 | EDS_ITS ---
HPI History of Present Illness HPI Narrative: Patient presents with needlestick exposure to her right thumb that occurred today. Patient administered a dose of subcutaneous insulin and was attempting to close the Over the needle when it accidentally stuck her in her right thumb. Patient thinks her tetanus is up-to-date. Patient denies any paresthesias or weakness. Patient denies any bleeding. Patient denies any other injuries. Chief Complaint: Occup Expose Occured/Mechanism Mechanism/Context: Yes puncture wound Onset/Context/Timing Onset: Today Context: Sudden Onset Timing: Continuous Location: Pad of right thumb Worsened by: Nothing Relieved by: Nothing Associated Symptoms Associated Symptoms: Negative for Parasthesia, Weakness or Loss of Funtion [facility] Medical History Physical exam, pre-employment Wears glasses Broken teeth Anxiety History of steroid therapy Rash Thyroid disease Low iron Migraine headache PONV (postoperative nausea and vomiting) Pancreatitis Former smoker Hypothyroidism Acute pancreatitis Home Medications ?Medication ?Instructions ?Recorded ?Last Taken ?Type dextroamphetamine-amphetamine ER 15 mg PO BID 03/05/21 Unknown History 15 mg 24hr capsule,extend release levothyroxine 25 mcg tablet 25 mcg PO DAILY 03/30/23 Unknown History prednisone 5 mg tablets in a dose See Rx Instructions PO .COMPLEX 12/12/23 Unknown History pack methocarbamol 500 mg tablet 1,000 mg (2 x 500 mg) PO 4X/DAY 12/18/23 Unknown Rx PRN Muscle pain/spasm #56 tabs oxycodone 5 mg capsule 5 mg PO Q6H PRN pain 3 days #12 12/18/23 Unknown Rx caps Allergy/AdvReac Type Severity Reaction Status Date / Time Penicillins Allergy Severe Rash Verified 01/30/24 17:06 Surgical History History of ERCP History of cholecystectomy Social History housing: house Smoking Status: Former smoker ROS ROS ED Constitutional Constitutional ED: Denies chills or fever(s) Eyes Eyes: Denies blurry vision or change in vision ENT ENT ED: Denies rhinorrhea or sore throat Cardiovascular Cardiovascular: Denies chest pain or palpitations Respiratory/Chest Respiratory/Chest: Denies cough or dyspnea Gastrointestinal Gastrointestinal: Denies nausea or vomiting Genitourinary Genitourinary ED: Denies dysuria or hematuria Musculoskeletal Musculoskeletal: Denies back pain or neck pain Integumentary Denies abscess or rash Neurologic Neurologic: Denies headache(s) or weakness Allergic/Immunologic Allergic/Immunologic ED: Denies mouth swelling or urticaria EXAM Physical Exam Const Vital Signs: 01/30/24 17:04 01/30/24 17:05 Temperature 97.9 F Temperature Source Temporal Pulse Rate 93 Respiratory Rate 18 Respiratory Effort Normal Respiratory Pattern Normal Blood Pressure 144/91 H Blood Pressure Mean 108 Pulse Ox 99 Oxygen Delivery Method Room Air Positive well nourished and well developed General Appearance ED: well developed and NAD HEENT Reports moist mucous membranes Neck full ROM and supple Resp normal respiratory effort and clear to auscultation bilaterally Cardio regular rate and regular rhythm GI non-tender and non-distended Palpation: soft Extremity normal to inspection and full ROM Extremity Narrative: There is a questionable puncture wound over the pad of the right thumb. There is no active bleeding noted. There is no erythema. There is no discharge or drainage. There is no warmth. There is full range of motion of the IP and MP joints. Capillary refill was less than 2 seconds in all digits. Sensation was intact to light touch in all digits. Neuro oriented x3, CN's II-XII intact bilaterally, moves all extremities, no focal motor deficits and no sensory deficits noted Sensorium / Orientation: alert Motor Exam: strength 5/5 throughout Psych mental status grossly normal MDM MDM MDM Narrative Medical decision making narrative: Needlestick exposure labs were obtained. Patient was instructed to follow-up with [facility] for the results of these. They do not feel the patient requires any antibiotics at this time. Bacitracin dressing was applied to the thumb. Patient was instructed to return if worse in any way. Patient understood and was agreeable with the plan. All questions were answered. Discharge Plan Triage Chief Complaint: Occup Expose ED Provider: Hao Jim Dx/Rx/DC Orders Clinical Impression: Accidental needlestick injury with exposure to body fluid, Puncture wound of right thumb Instructions: ED NEEDLE STICK Health Care Worker Prescriptions: No Action dextroamphetamine-amphetamine 15 mg capsule,extended release 24hr 15 mg PO BID prednisone 5 mg tablets,dose pack See Rx Instructions .ROUTE .COMPLEX Rx Instructions: prednisone 5 mg: take 8 tablets (40 mg) on Day 1; 7 tablets (35 mg) on Day 2; then decrease by 1 tablet every day until finished oxycodone 5 mg capsule 5 mg PO Q6H PRN (Reason: pain) 3 Days Qty: 12 0RF methocarbamol 500 mg tablet 1,000 mg PO 4X/DAY PRN (Reason: Muscle pain/spasm) Qty: 56 0RF levothyroxine 25 mcg tablet 25 mcg PO DAILY Patient Comments: TAKE 1 TABLET BY MOUTHCONCE DAILY Primary Care Provider: Dann Stokes NP Referrals: Health,Employee [Non-Staff -Ordering Privileges] - 3-5 Days Clinic,NOW [Non-Staff] - 3-5 Days Dann Stokes [employer]FA[employer]URING [employer]INE[employer], MANUFACTURING QUALITY ENGINEER-[employer] [Primary Care Provider] - 5-7 Days Print Language: Wolof Disposition Disposition: Home, Self Care
[2024-01-30 18:19] VITALS: BP 144/91; PULSE 80; RESP 16; TEMP 36.6; O2SAT 99
[2024-01-31 09:33] LABS: HIV - WCH Non-Reactive (Nonreactive); Hepatitis B Surface Antibody Reactive; Hepatitis B Surface Antigen Non-Reactive (Nonreactive); Hepatitis C Antibody Non-Reactive (Nonreactive)
== END 2024-01-30 18:20 | disposition home or self-care (01) ==
LOC: EDREF 17:03
PROVIDERS: PCP Nurse Practitioner Family; Visit Provider Emergency Medicine
DX: W46.0XXA Contact with hypodermic needle, initial encounter (principal); S61.031A Puncture wound without foreign body of right thumb without damage to nail, initial encounter; Z87.891 Personal history of nicotine dependence
CPT/HCPCS: 86703; 86706; 86803; 87340

== ENCOUNTER → 2024-11-25 | Outpatient (CLI) | payer OTHER, SELFPAY ==
[2024-11-25 15:08] LABS: Vitamin D,25 Hydroxy 20.6 ng/mL (30-100)
== END | disposition home or self-care (01) ==
LOC: LAB 13:09
PROVIDERS: PCP Nurse Practitioner Family; Referring Provider Nurse Practitioner Family; Visit Provider Nurse Practitioner Family
DX: E03.9 Hypothyroidism, unspecified (principal); E55.9 Vitamin D deficiency, unspecified
CPT/HCPCS: 36415; 82306; 84439; 84443